=== PATIENT | female | born 1945 | race Caucasian/White ===

== ENCOUNTER 2016-05-22 13:58 | Outpatient (RCR) | payer MEDICARE, OTHER ==
[2016-04-06 13:24] LABS: BASOPHILS % (AUTO) 0 % (0-10); EOSINOPHILS # (AUTO) 0.1 10^3/uL (0.0-0.3); EOSINOPHILS % (AUTO) 1 % (0-10); LYMPHOCYTES % (AUTO) 12 % (12-44); MEAN CORPUSCULAR HEMOGLOBIN 32 PG (25-34); MEAN CORPUSCULAR HGB CONC 35 G/DL (32-36); MEAN CORPUSCULAR VOLUME 92 FL (80-99); MEAN PLATELET VOLUME 9.5 FL (7.4-10.4); MONOCYTES # (AUTO) 0.6 X 10^3 (0.0-1.0); MONOCYTES % (AUTO) 8 % (0-12); NEUTROPHILS # (AUTO) 6.2 X 10^3 (1.8-7.8); NEUTROPHILS % (AUTO) 79 % (42-75); PLATELET COUNT 230 10^3/uL (130-400); RED CELL DISTRIBUTION WIDTH 13.1 % (10.0-14.5); WHITE BLOOD COUNT 7.9 10^3/uL (4.3-11.0)
[2016-04-06 13:56] LABS: ALANINE AMINOTRANSFERASE 14 U/L (0-55); ALBUMIN 4.2 G/DL (3.2-4.5); ANION GAP 10 MMOL/L (5-14); ASPARTATE AMINO TRANSFERASE 13 U/L (5-34); BILIRUBIN,TOTAL 0.3 MG/DL (0.1-1.0); BLOOD UREA NITROGEN 11 MG/DL (7-18); BUN/CREATININE RATIO 14; CALCIUM 9.4 MG/DL (8.5-10.1); CARBON DIOXIDE 26 MMOL/L (21-32); CHLORIDE 105 MMOL/L (98-107); GFR ESTIMATED > 60; GLUCOSE 211 MG/DL (70-105); POTASSIUM 3.9 MMOL/L (3.6-5.0); SODIUM 141 MMOL/L (135-145); TOTAL PROTEIN 6.7 G/DL (6.4-8.2)
[~2016-05-22 13:58] MED LIST: ATRV10T PO; DOCU-238 PO; GBPN300C PO; GLIP5TAB13 PO; HYDR1TAB PO; MULT-35 PO; SERT50TA PO; TRM50T PO
== END 2016-07-05 | disposition home or self-care (01) ==
LOC: ONC 13:58
PROVIDERS: ATTEND Internal Medicine Hematology & Oncology
DX: C20 Malignant neoplasm of rectum (principal); C77.5 Secondary and unspecified malignant neoplasm of intrapelvic lymph nodes; Z93.3 Colostomy status; Z92.3 Personal history of irradiation; Z79.899 Other long term (current) drug therapy; Z45.2 Encounter for adjustment and management of vascular access device
CPT/HCPCS: 36591; 80053; 82378; 85025; 96523; 99213

== ENCOUNTER → 2016-08-21 | Outpatient (CLI) | payer MEDICARE, OTHER ==
--- NOTE | 2016-08-23 20:13 | Diagnostic Imaging Report ---
Bilateral screening mammogram. The current study was also evaluated with a Computer Aided Detection (CAD) system. INDICATION: Screening. No current complaints stated on the questionnaire. COMPARISON: 08/11/2015. FINDINGS: The breasts are composed of scattered fibroglandular densities. There are multiple scattered benign-appearing calcifications. No mass, architectural distortion, or new calcifications seen. Allowing for technique and positional differences, no suspicious change is seen. IMPRESSION: No significant change. ACR BI-RADS Category 2: Benign findings. Result letter will be mailed to the patient. Note: At least 10% of breast cancer is not imaged by mammography. Dictated by: Dictated on workstation # [id number]
== END ==
LOC: RAD 14:42
PROVIDERS: ATTEND Nurse Practitioner Adult Health
DX: Z12.31 Encounter for screening mammogram for malignant neoplasm of breast (principal)
CPT/HCPCS: 77067

== ENCOUNTER 2016-09-28 14:24 | Outpatient (RCR) | payer OTHER ==
[2016-07-06 15:04] LABS: BASOPHILS % (AUTO) 0 % (0-10); EOSINOPHILS # (AUTO) 0.1 10^3/uL (0.0-0.3); EOSINOPHILS % (AUTO) 1 % (0-10); LYMPHOCYTES # (AUTO) 1.4 X 10^3 (1.0-4.0); LYMPHOCYTES % (AUTO) 18 % (12-44); MEAN CORPUSCULAR HEMOGLOBIN 31 PG (25-34); MEAN CORPUSCULAR HGB CONC 34 G/DL (32-36); MEAN CORPUSCULAR VOLUME 91 FL (80-99); MEAN PLATELET VOLUME 9.5 FL (7.4-10.4); MONOCYTES # (AUTO) 0.8 X 10^3 (0.0-1.0); MONOCYTES % (AUTO) 10 % (0-12); NEUTROPHILS # (AUTO) 5.4 X 10^3 (1.8-7.8); NEUTROPHILS % (AUTO) 70 % (42-75); PLATELET COUNT 246 10^3/uL (130-400); RED BLOOD COUNT 4.81 10^6/uL (4.35-5.85); RED CELL DISTRIBUTION WIDTH 13.4 % (10.0-14.5); WHITE BLOOD COUNT 7.7 10^3/uL (4.3-11.0)
[2016-07-06 15:46] LABS: ALANINE AMINOTRANSFERASE 12 U/L (0-55); ALBUMIN 4.4 G/DL (3.2-4.5); ANION GAP 10 MMOL/L (5-14); ASPARTATE AMINO TRANSFERASE 16 U/L (5-34); BILIRUBIN,TOTAL 0.5 MG/DL (0.1-1.0); BLOOD UREA NITROGEN 8 MG/DL (7-18); BUN/CREATININE RATIO 10; CALCIUM 9.9 MG/DL (8.5-10.1); CARBON DIOXIDE 24 MMOL/L (21-32); CHLORIDE 105 MMOL/L (98-107); CREATININE SERUM 0.78 MG/DL (0.60-1.30); GFR ESTIMATED > 60; GLUCOSE 104 MG/DL (70-105); SODIUM 139 MMOL/L (135-145); TOTAL PROTEIN 7.1 G/DL (6.4-8.2)
== END 2016-10-04 | disposition home or self-care (01) ==
LOC: ONC 14:24
PROVIDERS: ATTEND Internal Medicine Hematology & Oncology
DX: C20 Malignant neoplasm of rectum (principal); C77.5 Secondary and unspecified malignant neoplasm of intrapelvic lymph nodes; Z93.3 Colostomy status; Z92.3 Personal history of irradiation; Z79.899 Other long term (current) drug therapy; Z45.2 Encounter for adjustment and management of vascular access device
CPT/HCPCS: 36591; 80053; 82378; 85025; 96523; 99213

== ENCOUNTER 2017-02-01 14:24 | Outpatient (RCR) | payer MEDICARE, OTHER ==
[2017-02-01 14:46] LABS: BASOPHILS % (AUTO) 1 % (0-10); EOSINOPHILS # (AUTO) 0.1 10^3/uL (0.0-0.3); EOSINOPHILS % (AUTO) 2 % (0-10); LYMPHOCYTES # (AUTO) 1.2 X 10^3 (1.0-4.0); LYMPHOCYTES % (AUTO) 17 % (12-44); MEAN CORPUSCULAR HEMOGLOBIN 31 PG (25-34); MEAN CORPUSCULAR HGB CONC 34 G/DL (32-36); MEAN CORPUSCULAR VOLUME 92 FL (80-99); MEAN PLATELET VOLUME 9.5 FL (7.4-10.4); MONOCYTES # (AUTO) 0.8 X 10^3 (0.0-1.0); MONOCYTES % (AUTO) 12 % (0-12); NEUTROPHILS # (AUTO) 4.5 X 10^3 (1.8-7.8); NEUTROPHILS % (AUTO) 68 % (42-75); PLATELET COUNT 246 10^3/uL (130-400); RED BLOOD COUNT 4.73 10^6/uL (4.35-5.85); RED CELL DISTRIBUTION WIDTH 13.5 % (10.0-14.5); WHITE BLOOD COUNT 6.7 10^3/uL (4.3-11.0)
[2017-02-01 15:11] LABS: ALANINE AMINOTRANSFERASE 13 U/L (0-55); ALBUMIN 4.3 GM/DL (3.2-4.5); ANION GAP 9 MMOL/L (5-14); ASPARTATE AMINO TRANSFERASE 16 U/L (5-34); BILIRUBIN,TOTAL 0.5 MG/DL (0.1-1.0); BLOOD UREA NITROGEN 10 MG/DL (7-18); BUN/CREATININE RATIO 14; CALCIUM 10.2 MG/DL (8.5-10.1); CARBON DIOXIDE 25 MMOL/L (21-32); CHLORIDE 107 MMOL/L (98-107); CREATININE SERUM 0.74 MG/DL (0.60-1.30); GFR ESTIMATED > 60; GLUCOSE 112 MG/DL (70-105); SODIUM 141 MMOL/L (135-145)
== END 2017-02-07 | disposition home or self-care (01) ==
LOC: ONC 14:24
PROVIDERS: ATTEND Internal Medicine Hematology & Oncology
DX: C20 Malignant neoplasm of rectum (principal); C77.5 Secondary and unspecified malignant neoplasm of intrapelvic lymph nodes; Z93.3 Colostomy status; Z92.3 Personal history of irradiation; Z79.899 Other long term (current) drug therapy; Z45.2 Encounter for adjustment and management of vascular access device
CPT/HCPCS: 36591; 80053; 82378; 85025; 96523

== ENCOUNTER 2017-02-28 05:33 | Outpatient (CLI) | payer MEDICARE, OTHER ==
[~2017-02-28] VITALS: Ht 167.6 cm; Wt 55.8 kg
[2017-03-02] MEDS ORDERED: HYDR-3820 PO (12:29)
== END 2017-02-28 10:45 ==
LOC: PREOP 05:33
PROVIDERS: ATTEND Surgery
DX: Z01.818 Encounter for other preprocedural examination (principal); C20 Malignant neoplasm of rectum

== ENCOUNTER 2017-03-02 09:56 | Day surgery (SDC) | payer MEDICARE, OTHER ==
[~2017-03-02] VITALS: Ht 167.6 cm; Wt 55.8 kg
[2017-03-02 10:51] VITALS: BP 147/61
[2017-03-02] MEDS ORDERED: LACTATED RINGERS 1,000 ML IV PRN ×2 (11:04→11:13)
[2017-03-02] MEDS ORDERED: ONDANSETRON 4 MG/2 ML (SDV) Z0FRAN ONE (11:37)
[2017-03-02] MEDS ORDERED: PROPOFOL INJECTION 50 ML IV ONE (11:37)
[2017-03-02] MEDS ORDERED: fentaNYL INJECTION 100 MCG/2 ML AMP ONE (11:38)
[2017-03-02] MEDS ORDERED: MIDAZOLAM 2 MG/2 ML (VERSED) VIAL ONE (11:38)
[2017-03-02] MEDS ORDERED: BUPIVACAINE 0.25% 30 ML (SENSORCAINE) VIAL ONE (11:44)
--- NOTE | 2017-03-02 11:54 | History & Physicial ---
History of Present Illness History of Present Illness Reason for visit/HPI to have the Yjwdcu-t-Fobn removed, having completed adjuvant chemotherapy for resected carcinoma of the rectum. Date of Admission Date Seen by Provider: Mar 02, 2017 Time Seen by Provider: 11:53 I consulted on this patient on 03/02/17 11:53 Attending Physician Courtney Mayer MD Admitting Physician Juan Mendez MD Consult Allergies and Home Medications Allergies Coded Allergies: Penicillins (Verified Allergy, Unknown, 01/27/16) aspirin (Verified Allergy, Unknown, 01/27/16) Home Medications No Active Prescriptions or Reported Meds Past Cvjxfhv-Ojxjno-Xxqrux Hx Patient Social History Marrital Status: single Employed/Student: retired Alcohol Use: Rarely Uses Recreational Drug Use: No Smoking Status: Current Everyday Smoker Former Smoker, Quit: Nov 23, 2014 Type Used: Cigarettes Recent Foreign Travel: No Contact w/other who traveled: No Recent Hopitalizations: No Recent Infectious Disease Expo: No Immunizations Up To Date Tetanus Booster (TDap): Unknown Pediatric: Yes Date of Influenza Vaccine: May 19, 2012 Seasonal Allergies Seasonal Allergies: No Surgeries Yes Bowel Surgery, Tubal Ligation Respiratory No Reproductive System Hx Reproductive Disorders: No Sexually Transmitted Disease: No HIV/AIDS: No Female Reproductive Disorders: Denies Musculoskeletal Arthritis Endocrine Endocrine Disorders: Diabetes, Non-Insulin dep HEENT Loss of Vision: Denies Hearing Impairment: Denies Cancer Rectal Type of Treatment: Chemotherapy, Radiation, Surgical Intervention Blood Transfusions Adverse Reaction to a Blood Tr: No Constitutional: no symptoms reported EENTM: no symptoms reported Respiratory: no symptoms reported Cardiovascular: no symptoms reported Genitourinary: no symptoms reported Musculoskeletal: no symptoms reported Skin: no symptoms reported Psychiatric/Neurological: No Symptoms Reported Physical Exam Vital Signs Vital Sign - Last 12Hours 03/02/17 10:51 Temp 98.2 Pulse 60 Resp 16 B/P (MAP) 147/61 Pulse Ox 98 O2 Delivery Room Air Capillary Refill : General Appearance: No Apparent Distress HEENT: Normal ENT Inspection Neck: Normal Inspection Respiratory: Lungs Clear Cardiovascular: Regular Rate, Rhythm Gastrointestinal: Other Back: Normal Inspection Neurologic/Psychiatric: Alert, Oriented x3 Skin: Warm/Dry Comments functioning colostomy over the left lower quadrant of the abdomen Assessment/Plan Assessment and Plan lady with resected carcinoma the rectum. Problems: Clinical Quality Measures DVT/VTE Risk/Contraindication: Risk Factor Score Per Nursin RFS Level Per Nursing on Admit: 4+=Very High COURTNEY MAYER MD Mar 02, 2017 11:54 am
--- NOTE | 2017-03-02 11:55 | Progress Note-Pre Operative ---
Pre-Operative Progress Note H&P Reviewed The H&P was reviewed, patient examined and no changes noted. Date Seen by Provider: Mar 02, 2017 Time Seen by Provider: 11:55 Date H&P Reviewed: Mar 02, 2017 Time H&P Reviewed: 11:55 Pre-Operative Diagnosis: Resected carcinoma of rectum COURTNEY MAYER MD Mar 02, 2017 11:55 am
[2017-03-02] MEDS ORDERED: ceFAZolin 1,000 MG (ANCEF) VIAL ONE (12:01)
--- NOTE | 2017-03-02 12:28 | Operative Report ---
Operative Report Date of Procedure/Surgery Mar 02, 2017 Surgeon (s) COURTNEY MAYER MD Medical Chemist (s): not applicable Post-Operative Diagnosis same Procedure Performed removal of Nfhivh-d-Ozsv Description of Procedure Anesthesia Type: MAC Estimated blood loss (mL): minimal Specimen(s) collected/removed Eorbzr-b-Cyas Description of the Procedure Indication for the procedure: This lady came in to have her Fnhrhr-k-Olar removed, having had an adequate discussion with her oncologist. She had undergone laparoscopic assisted abdominal-peritoneal resection of rectum with a permanent colostomy to address a distal rectal carcinoma and received neoadjuvant followed by adjuvant chemoradiation. Description of the procedure: She was placed supine on the operative table and our CONTACT MANAGER administered sedation, monitoring her vital signs. A gram of Ancef administered intravenously as prophylaxis against infection. Sequential compression devices were placed around her legs, to minimize the risk of venous thrombosis. Her right infraclavicular fossa was prepared and draped in the usual sterile manner. Local anesthesia was achieved using 0.25 percent Marcaine. A secondary incision was made along the previous scar and the Infuse- a-Port removed without risking air embolism. The incision was closed using 3-0 Vicryl for the subcutaneous tissue and a 4-0 Vicryl for skin, in a subcuticular fashion. She tolerated the procedure well and was taken back to the nursing area in a stable condition. Findings of the Procedure see operative report Allergies and Home Medications Allergies Coded Allergies: Penicillins (Verified Allergy, Unknown, 01/27/16) aspirin (Verified Allergy, Unknown, 01/27/16) Home Medications No Active Prescriptions or Reported Meds COURTNEY MAYER MD Mar 02, 2017 12:28 pm
[2017-03-02] MEDS ORDERED: HYDR-3820 PO (12:29)
--- NOTE | 2017-03-02 12:30 | Discharge Inst-Simple/Standard ---
Discharge Inst-Standard Discharge Medications New, Converted or Re-Newed RX: RX on Chart Patient Instructions/Follow Up Plan of Care/Instructions/FU: Band-Aid off in 48 hours. Activity as Tolerated: Yes Discharge Diet: No Restrictions COURTNEY MAYER MD Mar 02, 2017 12:30 pm
[2017-03-02 13:05] VITALS: BP 137/67
[2017-03-02 13:35] VITALS: BP 148/57
== END 2017-03-02 13:45 | disposition home or self-care (01) ==
LOC: SDC 09:56
PROVIDERS: ATTEND Surgery
DX: C20 Malignant neoplasm of rectum (principal); Z93.3 Colostomy status; Z92.3 Personal history of irradiation; Z92.21 Personal history of antineoplastic chemotherapy; F17.210 Nicotine dependence, cigarettes, uncomplicated; E11.9 Type 2 diabetes mellitus without complications
CPT/HCPCS: 87081

== ENCOUNTER 2017-08-02 12:58 | Outpatient (RCR) | payer MEDICARE, OTHER ==
[2017-08-02 13:19] LABS: BASOPHILS % (AUTO) 0 % (0-10); EOSINOPHILS % (AUTO) 1 % (0-10); HEMATOCRIT 45 % (35-52); HEMOGLOBIN 15.4 G/DL (11.5-16.0); LYMPHOCYTES # (AUTO) 1.1 X 10^3 (1.0-4.0); LYMPHOCYTES % (AUTO) 16 % (12-44); MEAN CORPUSCULAR HEMOGLOBIN 32 PG (25-34); MEAN CORPUSCULAR HGB CONC 35 G/DL (32-36); MEAN CORPUSCULAR VOLUME 92 FL (80-99); MEAN PLATELET VOLUME 9.8 FL (7.4-10.4); MONOCYTES # (AUTO) 0.5 X 10^3 (0.0-1.0); MONOCYTES % (AUTO) 8 % (0-12); NEUTROPHILS # (AUTO) 5.3 X 10^3 (1.8-7.8); NEUTROPHILS % (AUTO) 76 % (42-75); PLATELET COUNT 227 10^3/uL (130-400); RED BLOOD COUNT 4.85 10^6/uL (4.35-5.85)
[2017-08-02 13:37] LABS: ALANINE AMINOTRANSFERASE 15 U/L (0-55); ALBUMIN 4.1 GM/DL (3.2-4.5); ALKALINE PHOSPHATASE 63 U/L (40-136); BILIRUBIN,TOTAL 0.4 MG/DL (0.1-1.0); BUN/CREATININE RATIO 11; CARBON DIOXIDE 28 MMOL/L (21-32); CHLORIDE 102 MMOL/L (98-107); CREATININE SERUM 0.88 MG/DL (0.60-1.30); GFR ESTIMATED > 60; GLUCOSE 213 MG/DL (70-105); POTASSIUM 4.3 MMOL/L (3.6-5.0); SODIUM 138 MMOL/L (135-145); TOTAL PROTEIN 7.1 GM/DL (6.4-8.2)
== END 2017-10-31 | disposition home or self-care (01) ==
LOC: ONC 12:58
PROVIDERS: ATTEND Internal Medicine Hematology & Oncology
DX: C20 Malignant neoplasm of rectum (principal); C77.5 Secondary and unspecified malignant neoplasm of intrapelvic lymph nodes; R05 Cough; M53.3 Sacrococcygeal disorders, not elsewhere classified; Z93.3 Colostomy status; Z79.899 Other long term (current) drug therapy; Z92.3 Personal history of irradiation; Z92.21 Personal history of antineoplastic chemotherapy
CPT/HCPCS: 80053; 82378; 85025

== ENCOUNTER → 2017-08-02 | Outpatient (CLI) | payer MEDICARE, OTHER ==
[~2017-08-02] MED LIST changes: +HYDR-3820 PO
--- NOTE | 2017-08-02 15:21 | Diagnostic Imaging Report ---
INDICATION: Cough. COMPARISON: 02/05/2013. EXAMINATION: Frontal and lateral views of the chest were obtained. FINDINGS: Clear lungs, bilaterally. The heart is normal. There is no pneumothorax. Osseous structures are normal. IMPRESSION: Negative chest. Dictated by: Dictated on workstation # [id number]
== END ==
LOC: RAD 13:56
PROVIDERS: ATTEND Nurse Practitioner Adult Health
DX: R05 Cough (principal)
CPT/HCPCS: 71046

== ENCOUNTER → 2017-08-20 | Outpatient (CLI) | payer MEDICARE, OTHER ==
[~2017-08-20] MED LIST changes: +CATHETER FLUSH 10 ML SYR IV PRN; +IOHEXOL 350 MG/ML 100 ML (OMNIPAQUE 350) VIAL IV ONE; +NS 100 ML (IVPB) BAG IV ONE
--- NOTE | 2017-08-20 15:39 | Diagnostic Imaging Report ---
PROCEDURE: CT chest with contrast, CT abdomen and pelvis with and without contrast. TECHNIQUE: Pre and post intravenous contrast axial imaging of the abdomen and pelvis and post contrast axial imaging of the chest were performed. INDICATION: Colon carcinoma, rectal lump. FINDINGS: The previous CT chest, abdomen, and pelvis exam performed on 08/07/2013 failed to show any sign of metastatic disease related to the patient's diagnosis of colon carcinoma. There was some soft tissue thickening of the presacral space. On this exam, there is a suggestion of a 2.3 x 3.3 cm soft tissue density interposed between the posterior aspect of the bladder and the tip of the coccyx. This finding was not clearly evident on the prior exam. It is possible that this could be secondary to volume averaging with the adjacent bowel. The possibility that there is a mass in this area should still be considered. I would recommend that PET/CT be performed for further study. There is no other pelvic mass or free fluid collection noted. The bladder itself is decompressed and difficult to assess. The ostomy site overlying the left lower quadrant seen on the prior study is again evident. The images through the abdomen show that the liver is homogeneous and of lower density than usually seen. This does suggest fatty metamorphosis. There is no focal mass involving the liver to indicate metastatic disease. No clear evidence for cholelithiasis or acute cholecystitis. The spleen, pancreas, adrenals, kidneys, aorta, and inferior vena cava show no sign of an acute abnormality. The stomach is filled with oral contrast and fluid and difficult to assess. The images through the thorax show that the heart size is within normal limits and stable when compared to the prior exam. The aorta is not abnormally dilated and there is no sign of dissection. There is no defect within the pulmonary arteries to indicate a pulmonary embolus. There is mild dependent atelectasis in both lung bases. The lungs are otherwise clear. There is no evidence for failure, pneumonia, or for a pleural effusion. There are mild emphysematous changes involving the lung apices. There is no parenchymal lung mass to indicate neoplastic disease. There is no mediastinal or hilar adenopathy. The thyroid gland is generally unremarkable. There is no obvious breast mass. The bone windows show no evidence for a fracture or for a destructive lesion. IMPRESSION: 1. There is a 2.2 x 3.3 cm soft tissue density interposed between the posterior margin of the bladder and the coccyx. While this finding may be secondary to volume averaging with the bowel alone, the possibility that there is a neoplastic mass in this area cannot be entirely excluded. PET/CT will be recommended for further study. 2. The overall appearance of the chest, abdomen, and pelvis is otherwise no different than on the prior exam. There is no sign of metastatic disease or of an acute abnormality. Dictated on workstation # [id number]
== END ==
LOC: RAD 13:31
PROVIDERS: ATTEND Nurse Practitioner Adult Health
DX: C18.9 Malignant neoplasm of colon, unspecified (principal); C20 Malignant neoplasm of rectum; K62.89 Other specified diseases of anus and rectum; M79.89 Other specified soft tissue disorders
CPT/HCPCS: 71260; 74178

== ENCOUNTER → 2017-08-28 | Outpatient (CLI) | payer MEDICARE, OTHER ==
[~2017-08-28] MED LIST changes: -CATHETER FLUSH 10 ML SYR IV PRN; -IOHEXOL 350 MG/ML 100 ML (OMNIPAQUE 350) VIAL IV ONE; -NS 100 ML (IVPB) BAG IV ONE
--- NOTE | 2017-08-28 16:46 | Diagnostic Imaging Report ---
INDICATION: Rectal carcinoma. COMPARISON: Comparison is made with prior PET/CT from 08/27/2012. TECHNIQUE: The patient was administered 12.2 mCi of F-18 FDG intravenously in the left antecubital location. PET imaging was performed from the top of the head through the mid thighs. Noncontrast CT imaging was also performed for anatomic correlation and attenuation correction. FINDINGS: There is symmetric activity throughout the brain. The neck soft tissues are unremarkable. No abnormal hypermetabolism in the chest is identified. There is physiologic activity within the left ventricular myocardium. Imaging through the abdomen demonstrates physiologic activity within the liver and spleen as well as within the tract. The previously noted intense region of hypermetabolism involving the rectum is no longer appreciated. Patient has had prior surgery and now has left lower quadrant ostomy. In addition, the hypermetabolic lymph node in the pelvis is no longer appreciated. No pelvic hypermetabolism is identified to suggest residual or recurrent disease. Physiologic activity within the GI tract and bladder is seen. Portion of the study does show a left lower quadrant ostomy. There is presacral soft tissue thickening present, perhaps on post-therapeutic basis. This region does not appear to be hypermetabolic. IMPRESSION: Post-therapeutic changes to the abdomen and pelvis. The previously noted hypermetabolic rectal mass and adjacent lymph node are no longer appreciated. No new regions of hypermetabolism are identified to suggest residual or recurrent disease. Dictated by: Dictated on workstation # [id number]
== END ==
LOC: RAD 09:03
PROVIDERS: ATTEND Nurse Practitioner Adult Health
DX: C20 Malignant neoplasm of rectum (principal)

== ENCOUNTER 2018-02-07 12:50 | Outpatient (RCR) | payer MEDICARE, OTHER ==
[2018-02-07 13:00] LABS: BASOPHILS % (AUTO) 1 % (0-10); EOSINOPHILS # (AUTO) 0.1 10^3/uL (0.0-0.3); EOSINOPHILS % (AUTO) 1 % (0-10); HEMATOCRIT 46 % (35-52); HEMOGLOBIN 16.2 G/DL (11.5-16.0); LYMPHOCYTES # (AUTO) 1.3 X 10^3 (1.0-4.0); LYMPHOCYTES % (AUTO) 17 % (12-44); MEAN CORPUSCULAR HEMOGLOBIN 32 PG (25-34); MEAN CORPUSCULAR HGB CONC 35 G/DL (32-36); MEAN CORPUSCULAR VOLUME 92 FL (80-99); MEAN PLATELET VOLUME 9.4 FL (7.4-10.4); MONOCYTES # (AUTO) 0.7 X 10^3 (0.0-1.0); MONOCYTES % (AUTO) 9 % (0-12); NEUTROPHILS # (AUTO) 5.4 X 10^3 (1.8-7.8); NEUTROPHILS % (AUTO) 72 % (42-75); PLATELET COUNT 247 10^3/uL (130-400); RED CELL DISTRIBUTION WIDTH 13.1 % (10.0-14.5); WHITE BLOOD COUNT 7.6 10^3/uL (4.3-11.0)
[2018-02-07 13:26] LABS: ALANINE AMINOTRANSFERASE 21 U/L (0-55); ALBUMIN 4.6 GM/DL (3.2-4.5); ALKALINE PHOSPHATASE 80 U/L (40-136); BILIRUBIN,TOTAL 0.6 MG/DL (0.1-1.0); BUN/CREATININE RATIO 11; CALCIUM 10.7 MG/DL (8.5-10.1); CARBON DIOXIDE 25 MMOL/L (21-32); CHLORIDE 104 MMOL/L (98-107); CREATININE SERUM 0.79 MG/DL (0.60-1.30); GFR ESTIMATED > 60; GLUCOSE 139 MG/DL (70-105); POTASSIUM 4.2 MMOL/L (3.6-5.0); SODIUM 140 MMOL/L (135-145); TOTAL PROTEIN 7.7 GM/DL (6.4-8.2)
== END 2018-02-22 | disposition home or self-care (01) ==
LOC: ONC 12:50
PROVIDERS: ATTEND Internal Medicine Hematology & Oncology
DX: C20 Malignant neoplasm of rectum (principal); C77.5 Secondary and unspecified malignant neoplasm of intrapelvic lymph nodes; M53.3 Sacrococcygeal disorders, not elsewhere classified; Z93.3 Colostomy status; Z79.899 Other long term (current) drug therapy; Z92.3 Personal history of irradiation; Z92.21 Personal history of antineoplastic chemotherapy
CPT/HCPCS: 36415; 80053; 82378; 85025; 99213

== ENCOUNTER 2018-09-12 12:40 | Outpatient (RCR) | payer MEDICARE, OTHER ==
[2018-09-12 12:57] LABS: BASOPHILS % (AUTO) 1 % (0-10); EOSINOPHILS # (AUTO) 0.1 10^3/uL (0.0-0.3); EOSINOPHILS % (AUTO) 1 % (0-10); HEMATOCRIT 47 % (35-52); LYMPHOCYTES # (AUTO) 1.3 X 10^3 (1.0-4.0); LYMPHOCYTES % (AUTO) 17 % (12-44); MEAN CORPUSCULAR HEMOGLOBIN 32 PG (25-34); MEAN CORPUSCULAR HGB CONC 34 G/DL (32-36); MEAN CORPUSCULAR VOLUME 94 FL (80-99); MEAN PLATELET VOLUME 9.6 FL (7.4-10.4); MONOCYTES # (AUTO) 0.7 X 10^3 (0.0-1.0); MONOCYTES % (AUTO) 9 % (0-12); NEUTROPHILS # (AUTO) 5.9 X 10^3 (1.8-7.8); NEUTROPHILS % (AUTO) 73 % (42-75); PLATELET COUNT 225 10^3/uL (130-400); RED CELL DISTRIBUTION WIDTH 13.3 % (10.0-14.5)
[2018-09-12 13:14] LABS: ALANINE AMINOTRANSFERASE 29 U/L (0-55); ALBUMIN 4.6 GM/DL (3.2-4.5); ALKALINE PHOSPHATASE 82 U/L (40-136); BILIRUBIN,TOTAL 0.6 MG/DL (0.1-1.0); BUN/CREATININE RATIO 10; CALCIUM 10.3 MG/DL (8.5-10.1); CARBON DIOXIDE 26 MMOL/L (21-32); CHLORIDE 105 MMOL/L (98-107); CREATININE SERUM 0.84 MG/DL (0.60-1.30); GFR ESTIMATED > 60; GLUCOSE 144 MG/DL (70-105); POTASSIUM 4.2 MMOL/L (3.6-5.0); SODIUM 140 MMOL/L (135-145); TOTAL PROTEIN 7.6 GM/DL (6.4-8.2)
== END 2018-12-11 | disposition home or self-care (01) ==
LOC: ONC 12:40
PROVIDERS: ATTEND Internal Medicine Hematology & Oncology
DX: C20 Malignant neoplasm of rectum (principal); C77.5 Secondary and unspecified malignant neoplasm of intrapelvic lymph nodes; E11.9 Type 2 diabetes mellitus without complications; F17.210 Nicotine dependence, cigarettes, uncomplicated; M53.3 Sacrococcygeal disorders, not elsewhere classified; Z93.3 Colostomy status; Z79.899 Other long term (current) drug therapy; Z92.3 Personal history of irradiation; Z92.21 Personal history of antineoplastic chemotherapy
CPT/HCPCS: 36415; 80053; 82378; 85025; 99213

== ENCOUNTER 2019-01-15 10:40 | Outpatient (CLI) | payer MEDICARE, OTHER ==
[~2019-01-15] VITALS: Ht 167.6 cm; Wt 65.3 kg
[~2019-01-15 10:40] MED LIST changes: +MULT-974 PO
== END 2019-01-15 11:21 | disposition home or self-care (01) ==
LOC: PREOP 10:40
PROVIDERS: ATTEND Surgery
DX: Z01.818 Encounter for other preprocedural examination (principal)

== ENCOUNTER 2019-01-21 09:43 | Day surgery (SDC) | payer MEDICARE, OTHER ==
[~2019-01-21] VITALS: Ht 167.6 cm; Wt 65.3 kg
[2019-01-21] VITALS (7 sets, daily range): BP systolic 149–178; BP diastolic 67–80
--- OUTSIDE RECORDS SUMMARY | 2019-01-21 09:51 | XMS REPORT ---
Author Author Migration, Doctor Organization [facility] Address Unknown Phone Unavailable Care Team Providers Care Medical Reception Name Role Phone Migration, Doctor Unavailable Unavailable PROBLEMS Type Condition ICD9-CM Code [id number] Code Onset Dates Condition Status SNOMED Code Problem History of colon cancer Z85.038 Active 375216811 Problem Major depressive disorder, single episode, mild F32.0 Active 09022952 Problem Mixed hyperlipidemia E78.2 Active 154477369 Problem Cigarette nicotine dependence without complication F17.210 Active 25057368 ALLERGIES No Information ENCOUNTERS Encounter Location Date Diagnosis [facility] [id number] [place] [address] Aug, Encounter for Medicare annual wellness exam Z00.00 ; Major depressive disorder, single episode, mild F32.0 ; Encounter for immunization Z23 and Mixed hyperlipidemia E78.2 [facility] [id number] [place] [address] Jul, [facility] [id number] [place] [address] Jun, [facility] [id number] [place] [address] 15 Mar, 2018 Major depressive disorder, single episode, mild F32.0 [facility] [id number] [place] [address] Feb, Reactive depression F32.9 and Mixed hyperlipidemia E78.2 [facility] [id number] [place] [address] Apr, [facility] [id number] [place] [address] 14 Sep, 2014 [facility] [id number] [place] [address] 13 Sep, 2014 [facility] [place] [facility] [address] [id number] [place] [address] Mar, [facility] [place] [facility] [address] [id number] [place] [address] Mar, [facility] [place] [facility] [address] [id number] [place] [address] Dec, [facility] [place] [facility] [address] [id number] [place] [address] Dec, [facility] [place] [facility] [address] [id number] [place] [address] Dec, [facility] [place] [facility] [address] [id number] [place] [address] Dec, [facility] [place] [facility] [address] [id number] [place] [address] Dec, [facility] [place] [facility] [address] [id number] [place] [address] Dec, [facility] [place] [facility] [address] [id number] [place] [address] Nov, [facility] [place] [facility] [address] [id number] [place] [address] Nov, [facility] [place] [facility] [address] [id number] [place] [address] Aug, [facility] [place] [facility] [address] [id number] [place] [address] Aug, [facility] [place] [facility] [address] [id number] [place] [address] Apr, [facility] [place] [facility] [address] [id number] [place] [address] Apr, [facility] [place] [facility] [address] [id number] [place] [address] Mar, [facility] [place] [facility] [address] [id number] [address] 16 Feb, 2013 [facility] [address] [id number] [place] [address] Feb, [facility] [address] [id number] [place] [address] Jan, [facility] [address] [facility] [id number] [place] [address] Dec, [facility] [address] [id number] [place] [address] Dec, [facility] [address] [id number] [place] [address] Aug, [facility] [address] [id number] [place] [address] Jul, [facility] [address] [id number] [place] [address] Jul, [facility] [address] [id number] [place] [address] 14 Jul, 2012 [facility] [address] [id number] [place] [address] Jul, [facility] [address] [facility] [id number] [place] [address] Jul, [facility] [address] [id number] [place] [address] 06 Jul, 2012 [facility] [place] [facility] [address] [id number], [place] [address] Jul, [facility] [place] [facility] [address] [id number], [place] [address] Jul, [facility] [place] [facility] [address] [id number], [place] [address] Jun, [facility] [place] [facility] [address] [id number], [place] [address] Jun, [facility] [address] [facility] [id number], [place] [address] Jun, [facility] [address], [place] [address] Jun, [facility] [address] [facility] [id number], [place] [address] Jun, [facility] [address], [place] [address] Jun, [facility] [address] [facility] [id number], [place] [address] Mar, [facility] [address], [place] [address] Mar, [facility] [address], [place] [address] Mar, [facility] [address], [place] [address] Mar, [facility] [id number], [place] [address] Dec, [facility] [address], [place] [address] Aug, IMMUNIZATIONS No Known Immunizations SOCIAL HISTORY Never Assessed REASON FOR VISIT [place]MR[place] PLAN OF CARE VITAL SIGNS MEDICATIONS No Known Medications RESULTS No Results PROCEDURES No Known procedures INSTRUCTIONS MEDICATIONS ADMINISTERED No Known Medications MEDICAL (GENERAL) HISTORY Type Description Date Surgical History No Surgical history information
--- OUTSIDE RECORDS SUMMARY | 2019-01-21 09:51 | XMS REPORT ---
Author Author Migration, Doctor Organization [facility] Address Unknown Phone Unavailable Care Team Providers Care Inspector Wire Products Name Role Phone Migration, Doctor Unavailable Unavailable PROBLEMS Type Condition ICD9-CM Code NJP98-MB Code Onset Dates Condition Status SNOMED Code Problem History of colon cancer Z85.038 Active 516756225 Problem Major depressive disorder, single episode, mild F32.0 Active 90969030 Problem Mixed hyperlipidemia E78.2 Active 092470580 Problem Cigarette nicotine dependence without complication F17.210 Active 92028603 ALLERGIES No Information ENCOUNTERS Encounter Location Date Diagnosis [facility] [id number] [place] [address] Aug, Encounter for Medicare annual wellness exam Z00.00 ; Major depressive disorder, single episode, mild F32.0 ; Encounter for immunization Z23 and Mixed hyperlipidemia E78.2 [facility] [id number] [place] [address] Jul, [facility] [id number] [place] [address] Jun, [facility] [id number] [place] [address] 15 Mar, 2018 Major depressive disorder, single episode, mild F32.0 [facility] [id number] [place] [address] Feb, Reactive depression F32.9 and Mixed hyperlipidemia E78.2 [facility] [id number] [place] [address] Apr, [facility] [id number] [place] [address] 14 Sep, 2014 [facility] [id number] [place] [address] 13 Sep, 2014 [facility] [place] [facility] [address] [id number] [place] [address] Mar, [facility] [place] [facility] [address] [id number] [place] [address] Mar, [facility] [place] [facility] [address] [id number] [place] [address] Dec, [facility] [place] [facility] [address] [id number] [place] [address] Dec, [facility] [place] [facility] [address] [id number] [place] [address] Dec, [facility] [place] [facility] [address] [id number] [place] [address] Dec, [facility] [place] [facility] [address] [id number] [place] [address] Dec, [facility] [place] [facility] [address] [id number] [place] [address] Dec, [facility] [place] [facility] [address] [id number] [place] [address] Nov, [facility] [place] [facility] [address] [id number] [place] [address] Nov, [facility] [place] [facility] [address] [id number] [place] [address] Aug, [facility] [place] [facility] [address] [id number] [place] [address] Aug, [facility] [place] [facility] [address] [id number] [place] [address] Apr, [facility] [place] [facility] [address] [id number] [place] [address] Apr, [facility] [place] [facility] [address] [id number] [place] [address] Mar, [facility] [place] [facility] [address] [id number], [place] [address] 16 Feb, 2013 [facility] [address] [id number] [place] [address] Feb, [facility] [address] [id number] [place] [address] Jan, [facility] [address] [facility] [id number] [place] [address] Dec, [facility] [address] [id number] [place] [address] Dec, [facility] [address] [id number] [place] [address] Aug, [facility] [address] [id number] [place] [address] Jul, [facility] [address] [id number] [place] [address] Jul, [facility] [address] [id number] [place] [address] 14 Jul, 2012 [facility] [address] [id number] [place] [address] Jul, [facility] [address] [facility] [id number] [place] [address] Jul, [facility] [address] [id number] [place] [address] 06 Jul, 2012 [facility] [place] [facility] [address] [id number], [place] [address] Jul, [facility] [place] [facility] [address] [id number], [place] [address] Jul, [facility] [place] [facility] [address] [id number], [place] [address] Jun, [facility] [place] [facility] [address] [id number], [place] [address] Jun, [facility] [address] [facility] [id number], [place] [address] Jun, [facility] [address], [place] [address] Jun, [facility] [address] [facility] [id number], [place] [address] Jun, [facility] [address], [place] [address] Jun, [facility] [address] [facility] [id number], [place] [address] Mar, [facility] [address], [place] [address] Mar, [facility] [address], [place] [address] Mar, [facility] [address], [place] [address] Mar, [facility] [id number] [address] Dec, [facility] [address], [place] [address] Aug, IMMUNIZATIONS No Known Immunizations SOCIAL HISTORY Never Assessed REASON FOR VISIT EMR-[facility] PLAN OF CARE VITAL SIGNS MEDICATIONS No Known Medications RESULTS No Results PROCEDURES No Known procedures INSTRUCTIONS MEDICATIONS ADMINISTERED No Known Medications MEDICAL (GENERAL) HISTORY Type Description Date Surgical History No Surgical history information
--- OUTSIDE RECORDS SUMMARY | 2019-01-21 09:51 | XMS REPORT ---
Author Author GABRIELA SCOTT [facility] Address [address] [place] [address] Care Team Providers Care Musical Instrument Maker Name Role Phone GABRIELA SCOTT Unavailable PROBLEMS Type Condition ICD9-CM Code [id number] Code Onset Dates Condition Status SNOMED Code Problem Major depressive disorder, single episode, mild F32.0 Active 60033130 Problem History of colon cancer Z85.038 Active 991885555 Problem Cigarette nicotine dependence without complication F17.210 Active 13474266 Problem Mixed hyperlipidemia E78.2 Active 231210537 ALLERGIES No Known Allergies ENCOUNTERS Encounter Location Date Diagnosis [facility] [id number] [place] [address] Mar, Major depressive disorder, single episode, mild F32.0 [facility] [id number] [place] [address] 14 Feb, 2018 Reactive depression F32.9 and Mixed hyperlipidemia E78.2 [facility] [id number] [place] [address] 07 Apr, 2016 [facility] [address] [address] 14 Sep, 2014 [facility] [id number] [place] [address] Sep, [facility] [id number] [place] [address] Mar, [facility] [id number] [place] [address] Mar, [facility] [id number] [place] [address] Dec, [facility] [address] [address] [place] [address] Dec, [facility] [place] [facility] [address] [id number] [place] [address] Dec, [facility] [place] [facility] [address] [id number] [place] [address] Dec, [facility] [place] [facility] [address] [id number] [place] [address] Dec, [facility] [place] [facility] [address] [id number] [place] [address] Dec, [facility] [place] [facility] [address] [id number] [place] [address] Nov, [facility] [place] [facility] [address] [id number] [place] [address] Nov, [facility] [place] [facility] [address] [id number] [place] [address] Aug, [facility] [place] [facility] [address] [id number] [place] [address] Aug, [facility] [place] [facility] [address] [id number] [place] [address] Apr, [facility] [place] [facility] [address] [id number] [place] [address] Apr, [facility] [place] [facility] [address] [id number] [place] [address] Mar, [facility] [place] [facility] [address] [id number] [place] [address] Feb, [facility] [place] [facility] [address] [id number] [place] [address] Feb, [facility] [place] [facility] [address] [id number] [place] [address] Jan, [facility] [place] [facility] [address] [id number] [place] [address] Dec, [facility] [place] [facility] [address] [id number] [place] [address] Dec, [facility] [address] [id number] [place] [address] Aug, [facility] [address] [id number] [place] [address] Jul, [facility] [place] [facility] [address] [id number] [place] [address] Jul, [facility] [address] [id number] [place] [address] Jul, [facility] [address] [id number] [place] [address] Jul, [facility] [address] [id number] [place] [address] Jul, [facility] [address] [id number] [place] [address] Jul, [facility] [address] [id number] [place] [address] Jul, [facility] [address] [id number] [place] [address] Jul, [facility] [address] [id number] [place] [address] Jun, [facility] [place] [facility] [address] [id number] [place] [address] Jun, [facility] [place] [facility] [address] [id number] [place] [address] Jun, [facility] [place] [facility] [address] [id number] [place] [address] Jun, [facility] [place] [facility] [address] [id number] [place] [address] Jun, [facility] [place] [facility] [address] [facility] [id number] [place] [address] Jun, [facility] [address] [facility] [id number] [address] Mar, [facility] [id number] [address] Mar, [facility] [address] [facility] [id number], [place] [address] Mar, [facility] [id number] [address] Mar, [facility] [address] [facility] [id number], [place] [address] Dec, [facility] [address] [id number] [address] Aug, IMMUNIZATIONS No Known Immunizations SOCIAL HISTORY Never Assessed REASON FOR VISIT Depression f/u Elzbieta VALDEZ PLAN OF CARE Activity Details Follow Up prn Reason: VITAL SIGNS Height 66 in 2018-04-08 Weight 138.9 lbs 2018-04-08 Temperature 98.1 degrees Fahrenheit 2018-04-08 Heart Rate 78 bpm 2018-04-08 Respiratory Rate 18 2018-04-08 BMI 22.42 kg/m2 2018-04-08 Blood pressure systolic 132 mmHg 2018-04-08 Blood pressure diastolic 82 mmHg 2018-04-08 MEDICATIONS Medication Instructions Dosage Frequency Start Date End Date Duration Status Hydrocodone-Acetaminophen 5-325 MG Orally every 6 hrs 1 tablet as needed 6h Active RESULTS No Results PROCEDURES Procedure Date Ordered Result Body Site [facility] VISIT ESTABLISHED PATIENT Apr 08, 2018 INSTRUCTIONS MEDICATIONS ADMINISTERED No Known Medications MEDICAL (GENERAL) HISTORY Type Description Date Surgical History No Surgical history information
--- OUTSIDE RECORDS SUMMARY | 2019-01-21 09:51 | XMS REPORT ---
Author Author Migration, Doctor Organization [facility] Address Unknown Phone Unavailable Care Team Providers Care Case Preparer And Liner Name Role Phone Migration, Doctor Unavailable Unavailable PROBLEMS Type Condition ICD9-CM Code [id number] Code Onset Dates Condition Status SNOMED Code Problem History of colon cancer Z85.038 Active 901646910 Problem Major depressive disorder, single episode, mild F32.0 Active 38075281 Problem Mixed hyperlipidemia E78.2 Active 953270096 Problem Cigarette nicotine dependence without complication F17.210 Active 25274818 ALLERGIES No Information ENCOUNTERS Encounter Location Date Diagnosis [facility] [id number] [place] [address] Aug, Encounter for Medicare annual wellness exam Z00.00 ; Major depressive disorder, single episode, mild F32.0 ; Encounter for immunization Z23 and Mixed hyperlipidemia E78.2 [facility] [id number] [place] [address] Jul, [facility] [id number] [place] [address] Jun, [facility] [id number] [place] [address] Mar, Major depressive disorder, single episode, mild F32.0 [facility] [id number] [place] [address] Feb, Reactive depression F32.9 and Mixed hyperlipidemia E78.2 [facility] [id number] [place] [address] Apr, [facility] [id number] [place] [address] Sep, [facility] [id number] [place] [address] 13 Sep, 2014 [facility] [place] [facility] [address] [id number] [place] [address] Mar, [facility] [place] [facility] [address] [id number] [place] [address] Mar, [facility] [place] [facility] [address] [id number] [place] [address] Dec, [facility] [place] [facility] [address] [id number] [place] [address] Dec, [facility] [place] [facility] [address] [id number] [place] [address] Dec, [facility] [place] [facility] [address] [id number] [place] [address] Dec, [facility] [place] [facility] [address] [id number] [place] [address] Dec, [facility] [place] [facility] [address] [id number] [place] [address] Dec, [facility] [place] [facility] [address] [id number] [place] [address] Nov, [facility] [place] [facility] [address] [id number] [place] [address] Nov, [facility] [place] [facility] [address] [id number] [place] [address] Aug, [facility] [place] [facility] [address] [id number] [place] [address] Aug, [facility] [place] [facility] [address] [id number] [place] [address] Apr, [facility] [place] [facility] [address] [id number] [place] [address] Apr, [facility] [place] [facility] [address] [id number] [place] [address] Mar, [facility] [place] [facility] [address] [id number], [place] [address] 16 Feb, 2013 [facility] [address] [id number] [place] [address] Feb, [facility] [address] [id number] [place] [address] Jan, [facility] [address] [facility] [id number] [place] [address] Dec, [facility] [address] [id number] [place] [address] Dec, [facility] [address] [id number] [place] [address] Aug, [facility] [address] [id number] [place] [address] Jul, [facility] [address] [id number] [place] [address] Jul, [facility] [address] [id number] [place] [address] 14 Jul, 2012 [facility] [address] [id number] [place] [address] Jul, [facility] [address] [facility] [id number] [place] [address] Jul, [facility] [address] [id number] [place] [address] 06 Jul, 2012 [facility] [place] [facility] [address] [id number], [place] [address] Jul, [facility] [place] [facility] [address] [id number], [place] [address] Jul, [facility] [place] [facility] [address] [id number], [place] [address] Jun, [facility] [place] [facility] [address] [id number], [place] [address] Jun, [facility] [address] [facility] [id number], [place] [address] Jun, [facility] [address] [facility] [id number], [place] [address] Jun, [facility] [address] [facility] [id number], [place] [address] Jun, [facility] [address] [facility] [id number], [place] [address] Jun, [facility] [address] [id number], [place] [address] Mar, [facility] [address] [facility] [id number], [place] [address] Mar, [facility] [address] [facility] [id number], [place] [address] Mar, [facility] [address] [facility] [id number], [place] [address] Mar, [facility] [address] [facility] [id number], [place] [address] Dec, [facility] [address] [facility] [id number], [place] [address] Aug, IMMUNIZATIONS No Known Immunizations SOCIAL HISTORY Never Assessed REASON FOR VISIT EMR-[facility] PLAN OF CARE VITAL SIGNS MEDICATIONS Medication Instructions Dosage Frequency Start Date End Date Duration Status GlipiZIDE 5 mg 1 tablet by Oral route 1 time per day Dec, Active trazodone 100 mg 1 Daily by Oral route 1 time per day hs Mar, Active Naprosyn 500 mg 1 tablet by Oral route 2 times per day pc Dec, Active RESULTS No Results PROCEDURES No Known procedures INSTRUCTIONS MEDICATIONS ADMINISTERED No Known Medications MEDICAL (GENERAL) HISTORY Type Description Date Surgical History No Surgical history information
--- OUTSIDE RECORDS SUMMARY | 2019-01-21 09:51 | XMS REPORT ---
Author Author GABRIELA SCOTT [facility] Address [address] [place] [address] Care Team Providers Care Tube Wrapper Name Role Phone GABRIELA SCOTT Unavailable PROBLEMS Type Condition ICD9-CM Code LHZ35-LG Code Onset Dates Condition Status SNOMED Code Problem History of colon cancer Z85.038 Active 532443267 Problem Major depressive disorder, single episode, mild F32.0 Active 96738880 Problem Mixed hyperlipidemia E78.2 Active 947019351 Problem Cigarette nicotine dependence without complication F17.210 Active 89963969 ALLERGIES No Information ENCOUNTERS Encounter Location Date Diagnosis [id number] [place] [address] Aug, Encounter for Medicare annual wellness exam Z00.00 ; Major depressive disorder, single episode, mild F32.0 ; Encounter for immunization Z23 and Mixed hyperlipidemia E78.2 [facility] [id number] [place] [address] Jul, [facility] [address] [place] [address] Jun, [facility] [id number] [place] [address] 15 Mar, 2018 Major depressive disorder, single episode, mild F32.0 [facility] [address] [address] 14 Feb, 2018 Reactive depression F32.9 and Mixed hyperlipidemia E78.2 [facility] [address] [place] [address] 07 Apr, 2016 [facility] [id number] [place] [address] 14 Sep, 2014 [facility] [id number] [place] [address] Sep, [facility] [place] [facility] [address] [id number] [place] [address] Mar, [facility] [place] [facility] [address] [id number] [place] [address] Mar, [facility] [place] [facility] [address] [id number] [place] [address] Dec, [facility] [place] [facility] [address] [id number] [place] [address] Dec, [facility] [place] [facility] [address] [id number] [place] [address] Dec, [facility] [place] [facility] [address] [id number] [place] [address] Dec, [facility] [place] [facility] [address] [id number] [place] [address] Dec, [facility] [place] [facility] [address] [id number] [place] [address] Dec, [facility] [place] [facility] [address] [id number] [place] [address] Nov, [facility] [place] [facility] [address] [id number] [place] [address] Nov, [facility] [place] [facility] [address] [id number] [place] [address] Aug, [facility] [place] [facility] [address] [id number] [place] [address] Aug, [facility] [place] [facility] [address] [id number] [place] [address] Apr, [facility] [place] [facility] [address] [id number] [place] [address] Apr, [facility] [place] [facility] [address] [id number] [place] [address] Mar, [facility] [place] [facility] [address] [id number] [place] [address] 16 Feb, 2013 [facility] [place] [facility] [address] [id number] [place] [address] Feb, [facility] [place] [facility] [address] [id number] [place] [address] Jan, [facility] [place] [facility] [address] [id number] [place] [address] Dec, [facility] [place] [facility] [address] [id number] [place] [address] Dec, [facility] [place] [facility] [address] [id number] [place] [address] Aug, [facility] [place] [facility] [address] [id number] [place] [address] Jul, [facility] [place] [facility] [address] [id number] [place] [address] Jul, [facility] [place] [facility] [address] [id number] [place] [address] 14 Jul, 2012 [facility] [place] [facility] [id number] [place] [address] Jul, [facility] [place] [facility] [address] [id number] [place] [address] Jul, [facility] [place] [facility] [address] [id number] [place] [address] Jul, [facility] [place] [facility] [address] [id number] [place] [address] Jul, [facility] [place] [facility] [address] [id number] [place] [address] Jul, [facility] [place] [facility] [address] [id number] [place] [address] Jun, [facility] [place] [facility] [address] [facility] [id number] [address] Jun, [facility] [address] [facility] [id number] [address] Jun, [facility] [address] [facility] [id number], [place] [address] Jun, [facility] [address] [facility] [id number], [place] [address] Jun, [facility] [address] [facility] [id number], [place] [address] Jun, [facility] [address] [facility] [id number], [place] [address] Mar, [facility] [address] [facility] [id number] [address] Mar, [facility] [address]65100[place] [address] Mar, [facility] [address] [facility] [id number], [place] [address] Mar, [facility] [address]65100[place] [address] Dec, [facility] [address] [id number] [address] Aug, IMMUNIZATIONS No Known Immunizations SOCIAL HISTORY Never Assessed REASON FOR VISIT Requests return call PLAN OF CARE VITAL SIGNS MEDICATIONS No Known Medications RESULTS No Results PROCEDURES No Known procedures INSTRUCTIONS MEDICATIONS ADMINISTERED No Known Medications MEDICAL (GENERAL) HISTORY Type Description Date Surgical History No Surgical history information
--- OUTSIDE RECORDS SUMMARY | 2019-01-21 09:52 | XMS REPORT ---
Author Author GABRIELA SCOTT Organization [employer] Address Unknown Phone Unavailable Care Team Providers Care Scale And Skip Car Operator Name Role Phone GBARIELA SCOTT CP Unavailable Allergies No Known Allergies Problems Problem Type Condition Code Onset Dates Condition Status Problem Diarrhea 787.91 Active Problem Hemorrhage of rectum and anus 569.3 Active Problem Urinary frequency 788.41 Active Problem Screening for malignant neoplasm of the cervix V76.2 Active Problem Flatulence, eructation, and gas pain 787.3 Active Problem Special screening examination, human papillomavirus [HPV] V73.81 Active Problem Malignant neoplasm of colon, unspecified site 153.9 Active Problem Special screening for malignant neoplasms, colon V76.51 Active Problem Cervicitis and endocervicitis 616.0 Active Problem Postmenopausal bleeding 627.1 Active Problem Malignant neoplasm of rectum 154.1 Active Problem Lumbago 724.2 Active Problem Anxiety state, unspecified 300.00 Active Medications No Known Medications Results No Known Results Summary Purpose [employer] Submission
--- OUTSIDE RECORDS SUMMARY | 2019-01-21 09:52 | XMS REPORT ---
Author Author GABRIELA SCOTT Organization [facility] Address [address] [place] [address] Care Team Providers Care Lead Nuclear Medicine Technologist Name Role Phone GABRILEA SCOTT Unavailable PROBLEMS Type Condition ICD9-CM Code NTS15-KQ Code Onset Dates Condition Status SNOMED Code Problem Hemorrhage of rectum and anus 569.3 Active 460700853 Problem Anxiety state, unspecified 300.00 Active 676680126 Problem Cervicitis and endocervicitis 616.0 Active 219202627 Problem Mixed hyperlipidemia E78.2 Active 076007707 Problem History of colon cancer Z85.038 Active 119200629 Problem Malignant neoplasm of colon, unspecified site 153.9 Active 525880233 Problem Malignant neoplasm of rectum 154.1 Active 126491490 Problem Cigarette nicotine dependence without complication F17.210 Active 74967695 Problem Reactive depression F32.9 Active 82478684 Problem Special screening for malignant neoplasms, colon V76.51 Active 753970416 Problem Screening for malignant neoplasm of the cervix V76.2 Active 589829990 Problem Diarrhea 787.91 Active 17935000 Problem Flatulence, eructation, and gas pain 787.3 Active 091893007 Problem Special screening examination, human papillomavirus [HPV] V73.81 Active 820417884 Problem Lumbago 724.2 Active 578919002 Problem Urinary frequency 788.41 Active 232937916 Problem Postmenopausal bleeding 627.1 Active [id number] ALLERGIES No Known Allergies ENCOUNTERS Encounter Location Date Diagnosis [facility] [address] [facility] [id number] [address] Mar, [facility] [id number] [address] Feb, Reactive depression F32.9 and Mixed hyperlipidemia E78.2 [facility] [address] [id number] [address] Apr, [facility] [place] [facility] [address] [id number] [place] [address] Sep, [facility] [place] [facility] [address] [id number] [place] [address] Sep, [facility] [place] [facility] [address] [id number] [place] [address] Mar, [facility] [place] [facility] [address] [id number] [place] [address] Mar, [facility] [place] [facility] [address] [id number] [place] [address] Dec, [facility] [place] [facility] [address] [id number] [place] [address] Dec, [facility] [place] [facility] [address] [id number] [place] [address] Dec, [facility] [place] [facility] [address] [id number] [place] [address] Dec, [facility] [place] [facility] [address] [id number] [place] [address] Dec, [facility] [place] [facility] [address] [id number] [place] [address] Dec, [facility] [place] [facility] [address] [id number] [place] [address] Nov, [facility] [place] [facility] [address] [id number] [place] [address] Nov, [facility] [place] [facility] [address] [id number] [place] [address] Aug, [facility] [place] [facility] [address] [id number] [place] [address] Aug, [facility] [place] [facility] [address] [id number] [place] [address] Apr, [facility] [place] [facility] [address] [id number] [place] [address] Apr, [facility] [address] [id number] [place] [address] Mar, [facility] [place] [facility] [address] [id number] [place] [address] 16 Feb, 2013 [facility] [place] [facility] [address] [id number] [place] [address] Feb, [facility] [place] [facility] [address] [id number] [place] [address] Jan, [facility] [address] [id number] [place] [address] Dec, [facility] [place] [facility] [id number] [place] [address] Dec, [facility] [id number] [place] [address] Aug, [facility] [place] [facility] [id number] [place] [address] Jul, [facility] [place] [facility] [id number] [address] Jul, [facility] [place] [facility] [id number] [address] 14 Jul, 2012 [facility] [place] [facility] [id number] [address] Jul, [facility] [place] [facility] [address] [facility] [id number] [place] [address] 07 Jul, 2012 [facility] [place] [facility] [id number] [address] 06 Jul, 2012 [facility] [place] [facility] [id number] [address] 04 Jul, 2012 [facility] [place] [facility] [id number] [address] Jul, [facility] [id number] [address] Jun, [facility] [id number] [address] Jun, [facility] [id number] [address] Jun, [facility] [id number] [address] Jun, [facility] [id number] [address] Jun, [facility] [id number] [address] Jun, [facility] [id number] [address] Mar, [facility] [id number] [address] Mar, [facility] [id number] [address] Mar, [facility] [id number] [address] Mar, [facility] [id number] [address] Dec, [facility] [id number] [address] Aug, IMMUNIZATIONS No Known Immunizations SOCIAL HISTORY Never Assessed REASON FOR VISIT f/u-DAVID mathews PLAN OF CARE Activity Details Follow Up 4 Weeks Reason: VITAL SIGNS Height 66 in 2018-03-08 Weight 137.3 lbs 2018-03-08 Temperature 97.6 degrees Fahrenheit 2018-03-08 Heart Rate 68 bpm 2018-03-08 Respiratory Rate 18 2018-03-08 Oximetry on room air:98 % 2018-03-08 BMI 22.16 kg/m2 2018-03-08 Blood pressure systolic 142 mmHg 2018-03-08 Blood pressure diastolic 78 mmHg 2018-03-08 MEDICATIONS Medication Instructions Dosage Frequency Start Date End Date Duration Status Hydrocodone-Acetaminophen 5-325 MG Orally every 6 hrs 1 tablet as needed 6h Active trazodone 100 mg 1 Daily by Oral route 1 time per day hs Mar, Not-Taking Naprosyn 500 mg 1 tablet by Oral route 2 times per day pc Dec, Not-Taking GlipiZIDE 5 mg 1 tablet by Oral route 1 time per day Dec, Not-Taking Zoloft 50 mg Orally Once a day 1 tablet 24h Feb, 30 day(s) Active RESULTS No Results PROCEDURES Procedure Date Ordered Result Body Site [facility] ESTABLISHED PATIENT Mar 08, 2018 INSTRUCTIONS MEDICATIONS ADMINISTERED No Known Medications MEDICAL (GENERAL) HISTORY Type Description Date Surgical History No Surgical history information
--- OUTSIDE RECORDS SUMMARY | 2019-01-21 09:59 | XMS REPORT | Continuity of Care Document ---
Author Organization Unknown Address Unknown Phone Unavailable Allergies Active Description Code Type Severity Reaction Onset Reported/Identified Relationship to Patient Clinical Status Yes aspirin Drug Allergy N/A N/A 12/23/2010 Yes Penicillins Drug Allergy N/A N/A 12/23/2010 Yes aspirin Drug Allergy 12/23/2010 Yes Penicillins Drug Allergy 12/23/2010 Yes aspirin [id number] Drug Allergy Unknown N/A 01/27/2016 Yes Penicillins [id number] Drug Allergy Unknown N/A 01/27/2016 Yes aspirin [id number] Drug Allergy Mild HIVES/GI UPSET 01/15/2019 Yes Penicillins [id number] Drug Allergy Mild HIVES/GI UPSET 01/15/2019 Medications There is no data. Problems Date Dx Coded Attending Type Code Diagnosis Diagnosed By 12/23/2010 250.00 DIABETES MELLITUS WITHOUT MENTION OF COMPLICATION TYPE II OR UNSPECIFIED TYPE NOT STATED UNCONTROLLED 12/23/2010 GABRIELA SCOTT MD 250.00 DIABETES MELLITUS WITHOUT MENTION OF COMPLICATION TYPE II OR UNSPECIFIED TYPE NOT STATED UNCONTROLLED 12/23/2010 ASHLEY MOLINA DO 250.00 DIABETES MELLITUS WITHOUT MENTION OF COMPLICATION TYPE II OR UNSPECIFIED TYPE NOT STATED UNCONTROLLED 12/23/2010 250.00 DIABETES MELLITUS WITHOUT MENTION OF COMPLICATION TYPE II OR UNSPECIFIED TYPE NOT STATED UNCONTROLLED 12/23/2010 GABRIELA SCOTT MD 250.00 DIABETES MELLITUS WITHOUT MENTION OF COMPLICATION TYPE II OR UNSPECIFIED TYPE NOT STATED UNCONTROLLED 12/23/2010 250.00 DIABETES MELLITUS WITHOUT MENTION OF COMPLICATION TYPE II OR UNSPECIFIED TYPE NOT STATED UNCONTROLLED 12/23/2010 250.00 DIABETES MELLITUS WITHOUT MENTION OF COMPLICATION TYPE II OR UNSPECIFIED TYPE NOT STATED UNCONTROLLED 12/23/2010 250.00 DIABETES MELLITUS WITHOUT MENTION OF COMPLICATION TYPE II OR UNSPECIFIED TYPE NOT STATED UNCONTROLLED 12/23/2010 COURTNEY MAYER MD 250.00 DIABETES MELLITUS WITHOUT MENTION OF COMPLICATION TYPE II OR UNSPECIFIED TYPE NOT STATED UNCONTROLLED 12/23/2010 COURTNEY MAYER MD 250.00 DIABETES MELLITUS WITHOUT MENTION OF COMPLICATION TYPE II OR UNSPECIFIED TYPE NOT STATED UNCONTROLLED 12/23/2010 GABRIELA SCOTT MD 250.00 DIABETES MELLITUS WITHOUT MENTION OF COMPLICATION TYPE II OR UNSPECIFIED TYPE NOT STATED UNCONTROLLED 12/23/2010 GABRIELA SCOTT MD 250.00 DIABETES MELLITUS WITHOUT MENTION OF COMPLICATION TYPE II OR UNSPECIFIED TYPE NOT STATED UNCONTROLLED 12/23/2010 GABRIELA SCOTT MD 250.00 DIABETES MELLITUS WITHOUT MENTION OF COMPLICATION TYPE II OR UNSPECIFIED TYPE NOT STATED UNCONTROLLED 12/23/2010 GABRIELA SCOTT MD 250.00 DIABETES MELLITUS WITHOUT MENTION OF COMPLICATION TYPE II OR UNSPECIFIED TYPE NOT STATED UNCONTROLLED 06/27/2012 569.3 RECTAL BLEEDING 06/27/2012 788.41 URINARY FREQUENCY 06/27/2012 V76.51 COLON CANCER SCREENING 06/27/2012 GABRIELA SCOTT MD 569.3 RECTAL BLEEDING 06/27/2012 GABRIELA SCOTT MD 788.41 URINARY FREQUENCY 06/27/2012 GABRIELA SCOTT MD V76.51 COLON CANCER SCREENING 06/27/2012 ASHLEY MOLINA DO 569.3 RECTAL BLEEDING 06/27/2012 ASHLEY MOLINA DO K 788.41 URINARY FREQUENCY 06/27/2012 ASHLEY MOLINA DO K V76.51 COLON CANCER SCREENING 06/27/2012 569.3 RECTAL BLEEDING 06/27/2012 788.41 URINARY FREQUENCY 06/27/2012 V76.51 COLON CANCER SCREENING 06/27/2012 GABRIELA SCOTT MD 569.3 RECTAL BLEEDING 06/27/2012 GABRIELA SCOTT MD 788.41 URINARY FREQUENCY 06/27/2012 GABRIELA SCOTT MD V76.51 COLON CANCER SCREENING 06/27/2012 569.3 RECTAL BLEEDING 06/27/2012 788.41 URINARY FREQUENCY 06/27/2012 V76.51 COLON CANCER SCREENING 06/27/2012 569.3 RECTAL BLEEDING 06/27/2012 788.41 URINARY FREQUENCY 06/27/2012 V76.51 COLON CANCER SCREENING 06/27/2012 569.3 RECTAL BLEEDING 06/27/2012 788.41 URINARY FREQUENCY 06/27/2012 V76.51 COLON CANCER SCREENING 06/27/2012 MORENO GANDHI, COURTNEY Berrios 569.3 RECTAL BLEEDING 06/27/2012 MORENO GANDHI, COURTNEY Berrios 788.41 URINARY FREQUENCY 06/27/2012 COURTNEY MAYER MD V76.51 COLON CANCER SCREENING 06/27/2012 MORENO GANDHI, COURTNEY Berrios 569.3 RECTAL BLEEDING 06/27/2012 MORENO GANDHI, COURTNEY Berrios 788.41 URINARY FREQUENCY 06/27/2012 MORENO GANDHI, COURTNEY Berrios V76.51 COLON CANCER SCREENING 06/27/2012 SONIA GANDHI, GABRIELA 569.3 RECTAL BLEEDING 06/27/2012 SONIA GANDHI, GABRIELA 788.41 URINARY FREQUENCY 06/27/2012 SONIA GANDHI, GABRIELA V76.51 COLON CANCER SCREENING 06/27/2012 SONIA GANDHI, GABRIELA 569.3 RECTAL BLEEDING 06/27/2012 SONIA GANDHI, GABRIELA 788.41 URINARY FREQUENCY 06/27/2012 SONIA GANDHI, GABRIELA V76.51 COLON CANCER SCREENING 06/27/2012 SONIA GANDHI, GABRIELA 569.3 RECTAL BLEEDING 06/27/2012 SONIA GANDHI, GABRIELA 788.41 URINARY FREQUENCY 06/27/2012 SONIA GANDHI, GABRIELA V76.51 COLON CANCER SCREENING 06/27/2012 SONIA GANDHI, GABRIELA 569.3 RECTAL BLEEDING 06/27/2012 SONIA GANDHI, GABRIELA 788.41 URINARY FREQUENCY 06/27/2012 SONAI GANDHI, GABRIELA V76.51 COLON CANCER SCREENING 07/15/2012 GABRIELA SCOTT MD 787.91 DIARRHEA 07/15/2012 ASHLEY MOLINA DO 787.91 DIARRHEA 07/15/2012 787.91 DIARRHEA 07/15/2012 GABRIELA SCOTT MD 787.91 DIARRHEA 07/15/2012 787.91 DIARRHEA 07/15/2012 787.91 DIARRHEA 07/15/2012 787.91 DIARRHEA 07/15/2012 MORENO GANDHI, COURTNEY Berrios 787.91 DIARRHEA 07/15/2012 MORENO GANDHI, COURTNEY Berrios 787.91 DIARRHEA 07/15/2012 GABRIELA SCOTT MD 787.91 DIARRHEA 07/15/2012 GABRIELA SCOTT MD 787.91 DIARRHEA 07/15/2012 SONIA GANDHI, GABRIELA 787.91 DIARRHEA 07/15/2012 GABRIELA SCOTT MD 787.91 DIARRHEA 07/26/2012 ASHLEY MOLINA DO K 616.0 CERVICITIS 07/26/2012 ASHLEY MOLINA DO 627.1 POSTMENOPAUSAL BLEEDING 07/26/2012 ASHLEY MOLINA DO K 787.3 FLATULENCE ERUCTATION AND GAS PAIN 07/26/2012 TRACY HATFIELDASHLEY V73.81 HPV SCREENING 07/26/2012 TRACY HATFIELD ASHLEY K V76.2 CERVICAL CANCER SCREENING (PAP SMEAR) 07/26/2012 616.0 CERVICITIS 07/26/2012 627.1 POSTMENOPAUSAL BLEEDING 07/26/2012 787.3 FLATULENCE ERUCTATION AND GAS PAIN 07/26/2012 V73.81 HPV SCREENING 07/26/2012 V76.2 CERVICAL CANCER SCREENING (PAP SMEAR) 07/26/2012 GABRIELA SCOTT MD 616.0 CERVICITIS 07/26/2012 GABRIELA SCOTT MD 627.1 POSTMENOPAUSAL BLEEDING 07/26/2012 GABRIELA SCOTT MD 787.3 FLATULENCE ERUCTATION AND GAS PAIN 07/26/2012 GABRIELA SCOTT MD V73.81 HPV SCREENING 07/26/2012 GABRIELA SCOTT MD V76.2 CERVICAL CANCER SCREENING (PAP SMEAR) 07/26/2012 616.0 CERVICITIS 07/26/2012 627.1 POSTMENOPAUSAL BLEEDING 07/26/2012 787.3 FLATULENCE ERUCTATION AND GAS PAIN 07/26/2012 V73.81 HPV SCREENING 07/26/2012 V76.2 CERVICAL CANCER SCREENING (PAP SMEAR) 07/26/2012 616.0 CERVICITIS 07/26/2012 627.1 POSTMENOPAUSAL BLEEDING 07/26/2012 787.3 FLATULENCE ERUCTATION AND GAS PAIN 07/26/2012 V73.81 HPV SCREENING 07/26/2012 V76.2 CERVICAL CANCER SCREENING (PAP SMEAR) 07/26/2012 616.0 CERVICITIS 07/26/2012 627.1 POSTMENOPAUSAL BLEEDING 07/26/2012 787.3 FLATULENCE ERUCTATION AND GAS PAIN 07/26/2012 V73.81 HPV SCREENING 07/26/2012 V76.2 CERVICAL CANCER SCREENING (PAP SMEAR) 07/26/2012 MORENO GANDHI, COURTNEY Berrios 616.0 CERVICITIS 07/26/2012 COURTNEY MAYER MD 627.1 POSTMENOPAUSAL BLEEDING 07/26/2012 MORENO GANDHI, COURTNEY Berrios 787.3 FLATULENCE ERUCTATION AND GAS PAIN 07/26/2012 COURTNEY MAYER MD V73.81 HPV SCREENING 07/26/2012 MORENO GANDHI, COURTNEY Berrios V76.2 CERVICAL CANCER SCREENING (PAP SMEAR) 07/26/2012 MORENO GANDHI, COURTNEY Berrios 616.0 CERVICITIS 07/26/2012 MORENO GANDHI, COURTNEY Berrios 627.1 POSTMENOPAUSAL BLEEDING 07/26/2012 MORENO GANDHI, COURTNEY Berrios 787.3 FLATULENCE ERUCTATION AND GAS PAIN 07/26/2012 MORENO GANDHI, COURTNEY Berrios V73.81 HPV SCREENING 07/26/2012 MORENO GANDHI, COURTNEY Berrios V76.2 CERVICAL CANCER SCREENING (PAP SMEAR) 07/26/2012 GABRIELA SCOTT MD 616.0 CERVICITIS 07/26/2012 GABRIELA SCOTT MD 627.1 POSTMENOPAUSAL BLEEDING 07/26/2012 GABRIELA SCOTT MD 787.3 FLATULENCE ERUCTATION AND GAS PAIN 07/26/2012 GABRIELA SCOTT MD V73.81 HPV SCREENING 07/26/2012 GABRIELA SCOTT MD V76.2 CERVICAL CANCER SCREENING (PAP SMEAR) 07/26/2012 GABRIELA SCOTT MD 616.0 CERVICITIS 07/26/2012 GABRIELA SCOTT MD 627.1 POSTMENOPAUSAL BLEEDING 07/26/2012 GABRIELA SCOTT MD 787.3 FLATULENCE ERUCTATION AND GAS PAIN 07/26/2012 GABRIELA SCOTT MD V73.81 HPV SCREENING 07/26/2012 GABRIELA SCOTT MD V76.2 CERVICAL CANCER SCREENING (PAP SMEAR) 07/26/2012 GABRIELA SCOTT MD 616.0 CERVICITIS 07/26/2012 GABRIELA SCOTT MD 627.1 POSTMENOPAUSAL BLEEDING 07/26/2012 GABRIELA SCOTT MD 787.3 FLATULENCE ERUCTATION AND GAS PAIN 07/26/2012 GABRIELA SCOTT MD V73.81 HPV SCREENING 07/26/2012 GABRIELA SCOTT MD V76.2 CERVICAL CANCER SCREENING (PAP SMEAR) 07/26/2012 GABRIELA SCOTT MD 616.0 CERVICITIS 07/26/2012 GABRIELA SCOTT MD 627.1 POSTMENOPAUSAL BLEEDING 07/26/2012 GBARIELA SCOTT MD 787.3 FLATULENCE ERUCTATION AND GAS PAIN 07/26/2012 GABRIELA SCOTT MD V73.81 HPV SCREENING 07/26/2012 GABRIELA SCOTT MD6.2 CERVICAL CANCER SCREENING (PAP SMEAR) 08/19/2012 Ot 154.1 MALIGNANT NEOPL RECTUM 08/19/2012 Ot 211.3 BENIGN NEOPLASM LG BOWEL 08/19/2012 Ot 211.4 BENIGN NEOPL RECTUM/ANUS 08/19/2012 Ot 562.10 DIVERTICULOSIS COLON (W/O MENT OF HEMORR 11/27/2012 FLORYADRIEN Ot 154.1 MALIGNANT NEOPL RECTUM 11/27/2012 FLORYADRIEN Ot 250.00 DIAB FELIZ WO COMPL, TYPE II OR UNSPEC TY 11/27/2012 FLORYADRIEN Ot 305.1 TOBACCO USE DISORDER 11/27/2012 FLORYADRIEN Ot 599.70 HEMATURIA, UNSPECIFIED 11/27/2012 ADRIEN HILL Ot 692.82 DERMATITIS DUE TO OTHER RADIATION 11/27/2012 ADRIEN HILL Ot 788.1 DYSURIA 11/27/2012 ADRIEN HILL Ot V16.0 FAMILY HX-GI MALIGNANCY 11/27/2012 ADRIEN HILL Ot V58.0 ENCOUNTER FOR RADIOTHERAPY 11/27/2012 ADRIEN HILL Ot V58.11 ENCOUNTER FOR ANTINEOPLASTIC CHEMOTHERAP 11/27/2012 ADRIEN HILL Ot V58.69 OTH MED,LT,CURRENT USE 12/25/2012 MORENO GANDHI, COURTNEY Berrios Ot 154.1 MALIGNANT NEOPL RECTUM 12/25/2012 COURTNEY MAYER MD Ot 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 12/25/2012 COURTNEY MAYER MD Ot 232.6 CA IN SITU SKIN ARM 12/25/2012 COURTNEY MAYER MD Ot 250.00 DIAB FELIZ WO COMPL, TYPE II OR UNSPEC TY 12/25/2012 COURTNEY MAYER MD Ot 305.1 TOBACCO USE DISORDER 12/25/2012 COURTNEY MAYER MD Ot 311 DEPRESSIVE DISORDER NEC 12/25/2012 COURTNEY MAYER MD Ot 780.62 POSTPROCEDURAL FEVER 12/30/2012 COURTNEY MAYER MD Ot 196.5 MAL PATRICIO LYMPH-INGUIN/LEG 12/30/2012 COURTNEY MAYER MD Ot 250.00 DIAB FELIZ WO COMPL, TYPE II OR UNSPEC TY 12/30/2012 COURTNEY MAYER MD Ot 311 DEPRESSIVE DISORDER NEC 12/30/2012 COURTNEY MAYER MD Ot V10.06 HX-RECTAL ANAL MALIGN 12/30/2012 COURTNEY MAYER MD Ot V44.3 COLOSTOMY STATUS 12/30/2012 COURTNEY MAYER MD Ot V58.42 AFTERCARE POST SURGERY NEOPLASM 01/20/2013 154.1 MALIGNANT NEOPLASM OF RECTUM 01/20/2013 154.1 MALIGNANT NEOPLASM OF RECTUM 01/20/2013 COURTNEY MAYER MD 154.1 MALIGNANT NEOPLASM OF RECTUM 01/20/2013 COURTNEY MAYER MD 154.1 MALIGNANT NEOPLASM OF RECTUM 01/20/2013 GABRIELA SCOTT MD 154.1 MALIGNANT NEOPLASM OF RECTUM 01/20/2013 GABRIELA SCOTT MD 154.1 MALIGNANT NEOPLASM OF RECTUM 01/20/2013 GABRIELA SCOTT MD 154.1 MALIGNANT NEOPLASM OF RECTUM 01/20/2013 GABRIELA SCOTT MD 154.1 MALIGNANT NEOPLASM OF RECTUM 02/05/2013 COURTNEY MAYER MD Ot 154.1 MALIGNANT NEOPL RECTUM 02/05/2013 COURTNEY MAYER MD Ot 250.00 DIAB FELIZ WO COMPL, TYPE II OR UNSPEC TY 03/04/2013 ADRIEN HILL Ot 154.1 MALIGNANT NEOPL RECTUM 03/04/2013 ADRIEN HILL Ot V58.11 ENCOUNTER FOR ANTINEOPLASTIC CHEMOTHERAP 03/18/2013 COURTNEY MAYER MD Ot 998.89 OTHER SPEC COMPLICATIONS OF PROCEDURES N 03/18/2013 COURTNEY MAYER MD Ot V58.69 OT MED,LT,CURRENT USE 04/04/2013 TABATHA AGUILA RN CIRCULATING Ot 709.8 SKIN DISORDERS NEC 04/04/2013 TABATHA AGUILA RN CIRCULATING Ot V44.3 COLOSTOMY STATUS 04/25/2013 COURTNEY MAYER MD 153.9 CA OF COLON 04/25/2013 COURTNEY MAYER MD 153.9 CA OF COLON 04/25/2013 GABRIELA SCOTT MD 153.9 CA OF COLON 04/25/2013 GABRIELA SCOTT MD 153.9 CA OF COLON 04/25/2013 GABRIELA SCOTT MD 153.9 CA OF COLON 04/25/2013 GABRIELA SCOTT MD 153.9 CA OF COLON 06/08/2013 ADRIEN HILL Ot 154.1 MALIGNANT NEOPL RECTUM 06/08/2013 FLORYADRIEN N Ot 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 06/08/2013 FLORYADRIEN N Ot V15.3 HX OF IRRADIATION 06/08/2013 FLORYADRIEN N Ot V44.3 COLOSTOMY STATUS 06/08/2013 FLORY ADRIEN N Ot V58.11 ENCOUNTER FOR ANTINEOPLASTIC CHEMOTHERAP 06/08/2013 ADRIEN HILL Ot V58.69 OTH MED,LT,CURRENT USE 09/09/2013 ADRIEN HILL N Ot 154.1 MALIGNANT NEOPL RECTUM 09/09/2013 FLORYADRIEN N Ot 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 09/09/2013 ADRIEN HILL Ot V15.3 HX OF IRRADIATION 09/09/2013 FLORYADRIEN GONZALES Ot V44.3 COLOSTOMY STATUS 09/09/2013 FLORYADRIEN Ot V58.11 ENCOUNTER FOR ANTINEOPLASTIC CHEMOTHERAP 09/09/2013 ADRIEN HILL Ot V58.69 OTH MED,LT,CURRENT USE 10/20/2013 MORENO GANDHI, COURTNEY Berrios Ot 211.3 BENIGN NEOPLASM LG BOWEL 10/20/2013 MORENO GANDHI, COURTNEY Berrios Ot 250.00 DIAB FELIZ WO COMPL, TYPE II OR UNSPEC TY 10/20/2013 MORENO GANDHI, COURTNEY Berrios Ot V10.06 HX-RECTAL ANAL MALIGN 10/20/2013 MORENO GANDHI, COURTNEY Berrios Ot V87.41 PERSONAL HISTORY OF ANTINEOPLASTIC CHEMO 12/24/2013 ADRIEN HILL N Ot 154.1 MALIGNANT NEOPL RECTUM 12/24/2013 ADRIEN HILL Ot 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 12/24/2013 ADRIEN HILL Ot V15.3 HX OF IRRADIATION 12/24/2013 ADRIEN HILL Ot V44.3 COLOSTOMY STATUS 12/24/2013 ADRIEN HILL Ot V58.69 OTH MED,LT,CURRENT USE 12/24/2013 ADRIEN HILL N Ot V58.81 FIT/ADJ VASCULAR CATHETER 01/19/2014 SONIA GANDHI, GABRIELA 724.2 LUMBAGO 01/19/2014 SONIA GANDHI, GABRIELA 724.2 LUMBAGO 04/07/2014 ADRIEN HILL N Ot 154.1 MALIGNANT NEOPL RECTUM 04/07/2014 FLORYADRIEN GONZALES N Ot 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 04/07/2014 FLORYADRIEN GONZALES N Ot V15.3 HX OF IRRADIATION 04/07/2014 FLORYADRIEN GONZALES N Ot V44.3 COLOSTOMY STATUS 04/07/2014 ADRIEN [facility]ILL N Ot V58.69 OTH MED,LT,CURRENT USE 04/07/2014 FLORYADRIEN GONZALES N Ot V58.81 FIT/ADJ VASCULAR CATHETER 04/16/2014 SONIA GANDHI, GABRIELA 300.00 ANXIETY STATE UNSPECIFIED 06/29/2014 FLORYADRIEN GONZALES N Ot 154.1 06/29/2014 FLORY, BOBRADHA N Ot 196.6 06/29/2014 FLORYADRIEN GONZALES N Ot V15.3 06/29/2014 FLORYADRIEN GONZALES N Ot V44.3 06/29/2014 FLORYADRIEN GONZALES N Ot V58.69 06/29/2014 FLORYADRIEN GONZALES N Ot V58.81 07/26/2014 FLORYADRIEN GONZALES N Ot 154.1 MALIGNANT NEOPL RECTUM 07/26/2014 FLORYADRIEN N Ot 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 07/26/2014 FLORYADRIEN GONZALES N Ot V15.3 HX OF IRRADIATION 07/26/2014 ADRIEN [facility]ILL N Ot V44.3 COLOSTOMY STATUS 07/26/2014 ADRIEN HILL N Ot V58.69 OTH MED,LT,CURRENT USE 07/26/2014 ADRIEN [facility]ILL N Ot V58.81 FIT/ADJ VASCULAR CATHETER 07/30/2014 TABATHA AGUILA Ot V76.12 07/31/2014 Ot V76.12 07/31/2014 Ot V72.84 07/31/2014 Ot 627.1 07/31/2014 Ot 154.1 07/31/2014 Ot 154.1 07/31/2014 Ot 154.1 07/31/2014 Ot 305.1 07/31/2014 TABATHA AGUILAP Ot 154.1 07/31/2014 TABATHA AGUILAP Ot 692.82 07/31/2014 TABATHA AGUILAP Ot 782.2 07/31/2014 TABATHA AGUILAP Ot V15.3 07/31/2014 MINGO HILAH S RN CIRCULATING Ot V15.82 07/31/2014 AGUILA, HILAH S RN CIRCULATING Ot V58.69 07/31/2014 AGUILA, HILAH S RN CIRCULATING Ot V87.41 07/31/2014 MORENO GANDHI, COURTNEY M Ot 154.1 07/31/2014 MORENO GANDHI, COURTNEY M Ot V72.84 07/31/2014 MORENO GANDHI, COURTNEY M Ot 154.1 07/31/2014 MORENO GANDHI, COURTNEY M Ot V72.83 07/31/2014 MORENO GANDHI, COURTNEY M Ot V74.8 07/31/2014 AGUILA, HILAH S RN CIRCULATING Ot 154.1 07/31/2014 AGUILA, HILAH S RN CIRCULATING Ot V15.3 07/31/2014 AGUILA, HILAH S RN CIRCULATING Ot V15.82 07/31/2014 AGUILA, HILAH S RN CIRCULATING Ot V58.69 07/31/2014 AGUILA HILAH S RN CIRCULATING Ot V87.41 07/31/2014 Ot 154.1 07/31/2014 Ot V58.0 07/31/2014 MORENO GANDHI, COURNTEY M Ot 154.1 07/31/2014 MORENO GANDHI, COURTNEY M Ot V72.84 07/31/2014 MORENO GANDHI, COURTNEY M Ot V74.8 07/31/2014 AGUILA, HILAH S RN CIRCULATING Ot 154.1 07/31/2014 AGUILA HILAH S RN CIRCULATING Ot 196.6 07/31/2014 AGUILA, HILAH S RN CIRCULATING Ot 338.18 07/31/2014 AGUILA, HILAH S RN CIRCULATING Ot V15.3 07/31/2014 AGUILA, HILAH S RN CIRCULATING Ot V44.3 07/31/2014 AGUILA, HILAH S RN CIRCULATING Ot V58.69 07/31/2014 AGUILA, HILAH S RN CIRCULATING Ot V87.41 07/31/2014 [facility]RIEN [facility] N Ot 154.1 07/31/2014 MORENO GANDHI, COURTNEY M Ot 154.1 07/31/2014 MORENO GANDHI, COURTNEY M Ot V72.84 07/31/2014 ADRI[facility] N Ot 154.1 07/31/2014 AD[facility] Ot 154.1 07/31/2014 ADRIEN [facility]ILL Ot V58.69 07/31/2014 AGUILATABATHA Rios S RN CIRCULATING Ot 154.1 07/31/2014 AGUILATABATHA Rios S RN CIRCULATING Ot 250.00 07/31/2014 TABATHA AGUILA S RN CIRCULATING Ot 300.00 07/31/2014 AGUILATABATHA Rios S RN CIRCULATING Ot 788.1 07/31/2014 AGUILATABATHA S RN CIRCULATING Ot 788.41 07/31/2014 AGUILATABATHA Rios S RN CIRCULATING Ot V58.69 07/31/2014 [facility] N Ot 154.1 07/31/2014 ADRIEN [facility] N Ot V58.69 07/31/2014 AGUILATABATHA Rios S RN CIRCULATING Ot 154.1 07/31/2014 TABATHA AGUILA S RN CIRCULATING Ot 250.00 07/31/2014 AGUILATABATHA S RN CIRCULATING Ot V58.69 07/31/2014 AGUILATABATHA S RN CIRCULATING Ot 154.1 07/31/2014 AGUILATABATHA S RN CIRCULATING Ot 196.6 07/31/2014 AGUILATABATHA Rios S RN CIRCULATING Ot 305.1 07/31/2014 AGUILATABATHA Rios S RN CIRCULATING Ot V15.3 07/31/2014 AGUILATABATHA S RN CIRCULATING Ot V44.3 07/31/2014 AGUILATABATHA Rios S RN CIRCULATING Ot V58.69 07/31/2014 [facility] N Ot 154.1 07/31/2014 MORENO GANDHI, COURTNEY M Ot V72.84 07/31/2014 AGUILATABATHA S RN CIRCULATING Ot 154.1 07/31/2014 AGUILATABATHA S RN CIRCULATING Ot 196.6 07/31/2014 AGUILATABATHA S RN CIRCULATING Ot V15.3 07/31/2014 AGUILATABATHA S RN CIRCULATING Ot V44.3 07/31/2014 AGUILATABATHA S RN CIRCULATING Ot V58.69 07/31/2014 [facility] N Ot 722.4 07/31/2014 AGUILATABATHA S RN CIRCULATING Ot 154.1 07/31/2014 AGUILA, TABATHA S RN CIRCULATING Ot 196.6 07/31/2014 AGUILA, TABATHA S RN CIRCULATING Ot V15.3 07/31/2014 AGUILA, TABATHA S RN CIRCULATING Ot V44.3 07/31/2014 AGUILA, TABATHA S RN CIRCULATING Ot V58.69 07/31/2014 AGUILA, TABATHA S RN CIRCULATING Ot 154.1 07/31/2014 AGUILA, TABATHA S RN CIRCULATING Ot 196.6 07/31/2014 AGUILA, TABATHA S RN CIRCULATING Ot V15.3 07/31/2014 AGUILA, TABATHA S RN CIRCULATING Ot V44.3 07/31/2014 AGUIAL, TABATHA S RN CIRCULATING Ot V58.69 07/31/2014 AGUILA, TABATHA S RN CIRCULATING Ot V58.81 07/31/2014 AGUILA, TAABTHA S RN CIRCULATING Ot V76.12 07/31/2014 FLORY, BOBAN N Ot 154.1 07/31/2014 FLORY, BOBAN N Ot 196.6 07/31/2014 FLORY, BOBAN N Ot V15.3 07/31/2014 FLORY, BOBAN N Ot V44.3 07/31/2014 FLORY, BOBAN N Ot V58.69 07/31/2014 FLORY, BOBAN N Ot V58.81 07/31/2014 AGUILA, TABATHA S RN CIRCULATING Ot V76.12 08/03/2014 AGUILA, TABATHA S RN CIRCULATING Ot V76.12 08/18/2014 AGUILA, TABATHA S RN CIRCULATING Ot 154.1 08/18/2014 AGUILA, TABATHA S RN CIRCULATING Ot 196.6 08/18/2014 AGUILA, TABATHA S RN CIRCULATING Ot V15.3 08/18/2014 AGUILA, TABATHA S RN CIRCULATING Ot V44.3 08/18/2014 AGUILA, TABATHA S RN CIRCULATING Ot V58.69 08/18/2014 AGUILA, TABATHA S RN CIRCULATING Ot V58.81 09/22/2014 FLORY, BOBAN N Ot 154.1 10/27/2014 FLORY, BOBAN N Ot 154.1 10/27/2014 FLORY, BOBAN N Ot 196.6 10/27/2014 FLORY, BOBAN N Ot V15.3 10/27/2014 FLORY, BOBAN N Ot V44.3 10/27/2014 FLORY, BOBAN N Ot V58.69 10/27/2014 FLORY, BOBAN N Ot V58.81 11/21/2014 MODESTO AGUILAJONATHON Rios RN CIRCULATING Ot V76.12 12/02/2014 FLORY, BOBAN N Ot 154.1 MALIGNANT NEOPL RECTUM 12/02/2014 FLORY, BOBAN N Ot 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 12/02/2014 FLORY, BOBAN N Ot V15.3 HX OF IRRADIATION 12/02/2014 FLORY, BOBAN N Ot V44.3 COLOSTOMY STATUS 12/02/2014 FLORY, BOBAN N Ot V58.69 OT MED,LT,CURRENT USE 12/02/2014 FLORY, BOBAN N Ot V58.81 FIT/ADJ VASCULAR CATHETER 12/02/2014 FLORY, BOBAN N Ot 154.1 12/02/2014 FLORY, BOBAN N Ot 196.6 12/02/2014 FLORY, BOBAN N Ot V15.3 12/02/2014 FLORY, BOBAN N Ot V44.3 12/02/2014 FLORY, BOBAN N Ot V58.69 12/02/2014 FLORY, BOBAN N Ot V58.81 12/07/2014 MORENO GANDHI, COURTNEY Berrios Ot 211.3 BENIGN NEOPLASM LG BOWEL 12/07/2014 MORENO GANDHI, COURTNEY Berrios Ot 305.1 TOBACCO USE DISORDER 12/07/2014 MORENO GANDHI, COURTNEY Berrios Ot 401.9 HYPERTENSION NOS 12/07/2014 MORENO GANDHI, COURTNEY Berrios Ot 562.10 DIVERTICULOSIS COLON (W/O MENT OF HEMORR 12/07/2014 MORENO GANDHI, COURTNEY Berrios Ot V10.06 HX-RECTAL ANAL MALIGN 12/14/2014 FLORY, BOBAN N Ot 154.1 12/14/2014 FLORY, BOBAN N Ot 196.6 12/14/2014 FLORY, BOBAN N Ot V15.3 12/14/2014 FLORY, BOBAN N Ot V44.3 12/14/2014 FLORY, BOBAN N Ot V58.69 12/14/2014 FLORY, BOBAN N Ot V58.81 12/14/2014 FLORY, BOBAN N Ot 154.1 12/14/2014 FLORY, BOBAN N Ot 196.6 12/14/2014 FLORY, BOBAN N Ot V15.3 12/14/2014 FLORY, BOBAN N Ot V44.3 12/14/2014 FLORY, BOBAN N Ot V58.69 12/14/2014 FLORY, BOBAN N Ot V58.81 12/14/2014 FLORY, BOBAN N Ot 154.1 12/14/2014 FLORY, BOBAN N Ot 196.6 12/14/2014 FLORY, BOBAN N Ot V15.3 12/14/2014 FLORY, BOBAN N Ot V44.3 12/14/2014 FLORY, BOBAN N Ot V58.69 12/14/2014 FLORY, BOBAN N Ot V58.81 12/15/2014 FLORY, BOBAN N Ot 154.1 12/15/2014 FLORY, BOBAN N Ot 196.6 12/15/2014 FLORY, BOBAN N Ot V15.3 12/15/2014 FLORY, BOBAN N Ot V44.3 12/15/2014 FLORY, BOBAN N Ot V58.69 12/15/2014 FLORY, BOBAN N Ot V58.81 12/28/2014 FLORY, BOBAN N Ot 154.1 12/28/2014 FLORY, BOBAN N Ot 196.6 12/28/2014 FLORY, BOBAN N Ot V15.3 12/28/2014 FLORY, BOBAN N Ot V44.3 12/28/2014 FLORY, BOBAN N Ot V58.69 12/28/2014 FLORY, BOBAN N Ot V58.81 01/14/2015 FLORY, BOBAN N Ot 154.1 01/14/2015 FLORY, BOBAN N Ot 196.6 01/14/2015 FLORY, BOBAN N Ot V15.3 01/14/2015 FLORY, BOBAN N Ot V44.3 01/14/2015 FLORY, BOBAN N Ot V58.69 01/14/2015 FLORY, BOBAN N Ot V58.81 01/22/2015 FLORY, BOBAN N Ot 154.1 01/22/2015 FLORY, BOBAN N Ot 196.6 01/22/2015 FLORY, BOBAN N Ot V15.3 01/22/2015 FLORY, BOBAN N Ot V44.3 01/22/2015 FLORY, BOBAN N Ot V58.69 01/22/2015 FLORY, BOBAN N Ot V58.81 01/25/2015 Ot V72.84 01/25/2015 Ot 627.1 01/25/2015 Ot 154.1 01/25/2015 Ot 154.1 01/25/2015 Ot 154.1 01/25/2015 Ot 305.1 01/25/2015 AGUILATABATHA Rios S RN CIRCULATING Ot 154.1 01/25/2015 MINGO TABATHA S RN CIRCULATING Ot 692.82 01/25/2015 MINGO TABATHA S RN CIRCULATING Ot 782.2 01/25/2015 MINGO TABATHA S RN CIRCULATING Ot V15.3 01/25/2015 AGUILA, TABATHA S RN CIRCULATING Ot V15.82 01/25/2015 MINGO TABATHA S RN CIRCULATING Ot V58.69 01/25/2015 MINGO TABATHA S RN CIRCULATING Ot V87.41 01/25/2015 MORENO GANDHI, COURTNEY M Ot 154.1 01/25/2015 MORENO GANDHI, COURTNEY M Ot V72.84 01/25/2015 MORENO GANDHI, COURTNEY M Ot 154.1 01/25/2015 MORENO GANDHI, COURTNEY M Ot V72.83 01/25/2015 MORENO GANDHI, COURTNEY M Ot V74.8 01/25/2015 MINGO TABATHA S RN CIRCULATING Ot 154.1 01/25/2015 MINGO TABATHA S RN CIRCULATING Ot V15.3 01/25/2015 MINGO TAABTHA S RN CIRCULATING Ot V15.82 01/25/2015 MINGO TABATHA S RN CIRCULATING Ot V58.69 01/25/2015 MINGO TABATHA S RN CIRCULATING Ot V87.41 01/25/2015 Ot 154.1 01/25/2015 Ot V58.0 01/25/2015 MORENO GANDHI, COURTNEY M Ot 154.1 01/25/2015 MORENO GANDHI, COURTNEY M Ot V72.84 01/25/2015 MORENO GANDHI, COURTNEY M Ot V74.8 01/25/2015 MINGO TABATHA S RN CIRCULATING Ot 154.1 01/25/2015 IMNGO TABATHA S RN CIRCULATING Ot 196.6 01/25/2015 MINGO TABATHA S RN CIRCULATING Ot 338.18 01/25/2015 MODESTO AGUILAJONATHON S RN CIRCULATING Ot V15.3 01/25/2015 MODESTO AGUILAJONATHON S RN CIRCULATING Ot V44.3 01/25/2015 AGUILATABATHA Rios S RN CIRCULATING Ot V58.69 01/25/2015 AGUILA TABATHA S RN CIRCULATING Ot V87.41 01/25/2015 ADRIEN HILL N Ot 154.1 01/25/2015 MORENO GANDHI, COURTNEY M Ot 154.1 01/25/2015 MORENO GANDHI, COURTNEY M Ot V72.84 01/25/2015 ADRIEN HILL N Ot 154.1 01/25/2015 ADRIEN HILL N Ot 154.1 01/25/2015 ADRIEN HILL N Ot V58.69 01/25/2015 AGUILA TABATHA S RN CIRCULATING Ot 154.1 01/25/2015 MINGO TABATHA S RN CIRCULATING Ot 250.00 01/25/2015 MINGO TABATHA S RN CIRCULATING Ot 300.00 01/25/2015 MINGO TABATHA S RN CIRCULATING Ot 788.1 01/25/2015 MINGO TABATHA S RN CIRCULATING Ot 788.41 01/25/2015 MINGO TABATHA S RN CIRCULATING Ot V58.69 01/25/2015 ADRIEN HILL N Ot 154.1 01/25/2015 ADRIEN HILL N Ot V58.69 01/25/2015 MINGO TABATHA S RN CIRCULATING Ot 154.1 01/25/2015 MINGO TABATHA S RN CIRCULATING Ot 250.00 01/25/2015 AGUILA, TABATHA S RN CIRCULATING Ot V58.69 01/25/2015 MINGO TABATHA S RN CIRCULATING Ot 154.1 01/25/2015 MINGO TABATHA S RN CIRCULATING Ot 196.6 01/25/2015 AGUILA, TABATHA S RN CIRCULATING Ot 305.1 01/25/2015 MINGO TABATHA S RN CIRCULATING Ot V15.3 01/25/2015 AGUILA, MODESTOAH S RN CIRCULATING Ot V44.3 01/25/2015 MINGO MODESTOAH S RN CIRCULATING Ot V58.69 01/25/2015 ADRIEN [place]ILL N Ot 154.1 01/25/2015 MORENO GANDHI, COURTNEY M Ot V72.84 01/25/2015 MINGO TABATHA S RN CIRCULATING Ot 154.1 01/25/2015 AGUILA, HILAH S RN CIRCULATING Ot 196.6 01/25/2015 AGUILATABATHA Rios S RN CIRCULATING Ot V15.3 01/25/2015 AGUILATABATHA S RN CIRCULATING Ot V44.3 01/25/2015 AGUILATABATHA S RN CIRCULATING Ot V58.69 01/25/2015 ADRIEN HILL N Ot 722.4 01/25/2015 AGUILATABATHA S RN CIRCULATING Ot 154.1 01/25/2015 AGUILA, TABATHA S RN CIRCULATING Ot 196.6 01/25/2015 AGUILA, MODESTOAH S RN CIRCULATING Ot V15.3 01/25/2015 AGUILA, MODESTOAH S RN CIRCULATING Ot V44.3 01/25/2015 AGUILA, TABATHA S RN CIRCULATING Ot V58.69 01/25/2015 AGUILA, TABATHA S RN CIRCULATING Ot 154.1 01/25/2015 AGUILATABATHA S RN CIRCULATING Ot 196.6 01/25/2015 AGUILATABATHA S RN CIRCULATING Ot V15.3 01/25/2015 AGUILATABATHA S RN CIRCULATING Ot V44.3 01/25/2015 AGUILATABATHA S RN CIRCULATING Ot V58.69 01/25/2015 AGUILATABATHA S RN CIRCULATING Ot V58.81 01/25/2015 AGUILATABATHA S RN CIRCULATING Ot V76.12 01/25/2015 MORENO GANDHI, COURTNEY Berrios Ot V72.84 01/25/2015 FLORY, BOBAN N Ot 154.1 01/25/2015 FLORY, DINOAN N Ot 196.6 01/25/2015 FLORY, BOBAN N Ot V15.3 01/25/2015 FLORY, BOBAN N Ot V44.3 01/25/2015 FLORY, BOBAN N Ot V58.69 01/25/2015 FLORY, BOBAN N Ot V58.81 02/09/2015 AGUILATABATHA S RN CIRCULATING Ot 154.1 02/09/2015 AGUILA, HILAH S RN CIRCULATING Ot 196.6 02/09/2015 AGUILATABATHA S RN CIRCULATING Ot V15.3 02/09/2015 AGUILA, TABATHA S RN CIRCULATING Ot V44.3 02/09/2015 AGUILA, MODESTOAH S RN CIRCULATING Ot V58.69 02/09/2015 AGUILA, HILAH S RN CIRCULATING Ot V58.81 02/09/2015 AGUILATABATHA Rios S RN CIRCULATING Ot 154.1 02/09/2015 AGUILATABATHA S RN CIRCULATING Ot 196.6 02/09/2015 AGUILATABATHA Rios S RN CIRCULATING Ot V15.3 02/09/2015 AGUILATABATHA S RN CIRCULATING Ot V44.3 02/09/2015 AGUILATABATHA Rios S RN CIRCULATING Ot V58.69 02/09/2015 AGUILATABATHA S RN CIRCULATING Ot V58.81 02/09/2015 AGUILATABATHA S RN CIRCULATING Ot 154.1 02/09/2015 AGUILATABATHA S RN CIRCULATING Ot 196.6 02/09/2015 AGUILATABATHA S RN CIRCULATING Ot V15.3 02/09/2015 AGUILATABATHA S RN CIRCULATING Ot V44.3 02/09/2015 AGUILATABATHA S RN CIRCULATING Ot V58.69 02/09/2015 AGUILATABATHA S RN CIRCULATING Ot V58.81 02/23/2015 AGUILATABATHA S RN CIRCULATING Ot 154.1 02/23/2015 AGUILATABATHA Rios S RN CIRCULATING Ot 196.6 02/23/2015 AGUILATABATHA Rios S RN CIRCULATING Ot V15.3 02/23/2015 AGUILATABATHA S RN CIRCULATING Ot V44.3 02/23/2015 AGUILATABATHA S RN CIRCULATING Ot V58.69 02/23/2015 AGUILATABATHA S RN CIRCULATING Ot V58.81 03/09/2015 AGUILATABATHA Rios S RN CIRCULATING Ot 154.1 03/09/2015 AGUILATABATHA Rios S RN CIRCULATING Ot 196.6 03/09/2015 AGUILATABATHA Rios S RN CIRCULATING Ot V15.3 03/09/2015 AGUILATABATHA S RN CIRCULATING Ot V44.3 03/09/2015 AGUILATABATHA Rios S RN CIRCULATING Ot V58.69 03/09/2015 AGUILATABATHA S RN CIRCULATING Ot V58.81 03/14/2015 ADRIEN HILL Ot 154.1 MALIGNANT NEOPL RECTUM 03/14/2015 ADRIEN HILL Ot 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 03/14/2015 ADRIEN HILL Ot C20 MALIGNANT NEOPLASM OF RECTUM 03/14/2015 ADRIEN HILL Ot 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 03/14/2015 ADRIEN HILL Ot V15.3 HX OF IRRADIATION 03/14/2015 ADRIEN HILL Ot V44.3 COLOSTOMY STATUS 03/14/2015 ADRIEN HILL Ot V58.69 OTH MED,LT,CURRENT USE 03/14/2015 ADRIEN HILL Ot V58.81 FIT/ADJ VASCULAR CATHETER 03/14/2015 ADRIEN HILL Ot Z45.2 ENCOUNTER FOR ADJUSTMENT AND MANAGEMENT 03/14/2015 ADRIEN HILL Ot 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 03/14/2015 ADRIEN HILL Ot Z92.3 PERSONAL HISTORY OF IRRADIATION 03/14/2015 ADRIEN HILL Ot Z93.3 COLOSTOMY STATUS 04/14/2015 ADRIEN HILL Ot 154.1 04/14/2015 ADRIEN HILL Ot 196.6 04/14/2015 ADRIEN HILL Ot V15.3 04/14/2015 ADRIEN HILL Ot V44.3 04/14/2015 ADRIEN HILL Ot V58.69 04/14/2015 ADRIEN HILL Ot V58.81 04/15/2015 Ot V72.84 04/15/2015 Ot 627.1 04/15/2015 Ot 154.1 04/15/2015 Ot 154.1 04/15/2015 Ot 154.1 04/15/2015 Ot 305.1 04/15/2015 TABATHA AGUILA RN CIRCULATING Ot 154.1 04/15/2015 TABATHA AGUILA RN CIRCULATING Ot 692.82 04/15/2015 TABATHA AGUILA RN CIRCULATING Ot 782.2 04/15/2015 TABATHA AGUILA RN CIRCULATING Ot V15.3 04/15/2015 TABATHA AGUILA RN CIRCULATING Ot V15.82 04/15/2015 TABATHA AGUILA RN CIRCULATING Ot V58.69 04/15/2015 TABATHA AGUILA RN CIRCULATING Ot V87.41 04/15/2015 MORENO GANDHI, COURTNEY Berrios Ot 154.1 04/15/2015 MORENO GANDHI, COURTNEY Berrios Ot V72.84 04/15/2015 MORENO GANDHI, COURTNEY Berrios Ot 154.1 04/15/2015 MORENO GANDHI, COURTNEY M Ot V72.83 04/15/2015 MORENO GANDHI, COURTNEY M Ot V74.8 04/15/2015 AGUILA, TABATHA S RN CIRCULATING Ot 154.1 04/15/2015 AGUILA MODESTOAH S RN CIRCULATING Ot V15.3 04/15/2015 AGUILA HILAH S RN CIRCULATING Ot V15.82 04/15/2015 AGUILA HILAH S RN CIRCULATING Ot V58.69 04/15/2015 AGUILA HILAH S RN CIRCULATING Ot V87.41 04/15/2015 Ot 154.1 04/15/2015 Ot V58.0 04/15/2015 MORENO GANDHI, COURTNEY M Ot 154.1 04/15/2015 MORENO GANDHI, COURTNEY M Ot V72.84 04/15/2015 MORENO GANDHI, COURTNEY M Ot V74.8 04/15/2015 MINGO TABATHA S RN CIRCULATING Ot 154.1 04/15/2015 MINGO MODESTOAH S RN CIRCULATING Ot 196.6 04/15/2015 AGUILA MODESTOAH S RN CIRCULATING Ot 338.18 04/15/2015 AGUILA MODESTOAH S RN CIRCULATING Ot V15.3 04/15/2015 AGUILA TABATHA S RN CIRCULATING Ot V44.3 04/15/2015 MINGO TABATHA S RN CIRCULATING Ot V58.69 04/15/2015 MINGO TABATHA S RN CIRCULATING Ot V87.41 04/15/2015 FLORY BOBAN N Ot 154.1 04/15/2015 MORENO GANDHI, COURTNEY M Ot 154.1 04/15/2015 MORENO GANDHI, COURTNEY M Ot V72.84 04/15/2015 FLORY, BOBAN N Ot 154.1 04/15/2015 FLORY, BOBAN N Ot 154.1 04/15/2015 FLORY BOBAN N Ot V58.69 04/15/2015 AGUILAMODESTOAH S RN CIRCULATING Ot 154.1 04/15/2015 AGUILAMODESTOAH S RN CIRCULATING Ot 250.00 04/15/2015 AGUILA HILAH S RN CIRCULATING Ot 300.00 04/15/2015 AGUILAMODESTOAH S RN CIRCULATING Ot 788.1 04/15/2015 TABATHA AGUILA S RN CIRCULATING Ot 788.41 04/15/2015 AGUILA HILAH S RN CIRCULATING Ot V58.69 04/15/2015 ADRIEN HILL N Ot 154.1 04/15/2015 ADRIEN HILL N Ot V58.69 04/15/2015 AGUILATABATHA Rios S RN CIRCULATING Ot 154.1 04/15/2015 AGUILATABATHA Rios S RN CIRCULATING Ot 250.00 04/15/2015 AGUILATABATHA S RN CIRCULATING Ot V58.69 04/15/2015 AGUILATABATHA S RN CIRCULATING Ot 154.1 04/15/2015 AGUILATABATHA S RN CIRCULATING Ot 196.6 04/15/2015 AGUILATABATHA S RN CIRCULATING Ot 305.1 04/15/2015 AGUILATABATHA S RN CIRCULATING Ot V15.3 04/15/2015 AGUILA, TABATHA S RN CIRCULATING Ot V44.3 04/15/2015 AGUILATABAHTA S RN CIRCULATING Ot V58.69 04/15/2015 ADRIEN HILL N Ot 154.1 04/15/2015 MORENO GANDHI, COURTNEY M Ot V72.84 04/15/2015 AGUILATABATHA S RN CIRCULATING Ot 154.1 04/15/2015 AGUILATABATHA S RN CIRCULATING Ot 196.6 04/15/2015 AGUILATABATHA S RN CIRCULATING Ot V15.3 04/15/2015 AGUILA TABATHA S RN CIRCULATING Ot V44.3 04/15/2015 AGUILA, TABATHA S RN CIRCULATING Ot V58.69 04/15/2015 ADRIEN HILL N Ot 722.4 04/15/2015 AGUILATABATHA S RN CIRCULATING Ot 154.1 04/15/2015 AGUILA TABATHA S RN CIRCULATING Ot 196.6 04/15/2015 AGUILA TABATHA S RN CIRCULATING Ot V15.3 04/15/2015 AGUILA TABATHA S RN CIRCULATING Ot V44.3 04/15/2015 AGUILA TABATHA S RN CIRCULATING Ot V58.69 04/15/2015 AGUILA, MODESTOAH S RN CIRCULATING Ot 154.1 04/15/2015 AGUILA, MODESTOAH S RN CIRCULATING Ot 196.6 04/15/2015 AGUILA TABATHA S RN CIRCULATING Ot V15.3 04/15/2015 AGUILA TABATHA S RN CIRCULATING Ot V44.3 04/15/2015 AGUILA HILAH S RN CIRCULATING Ot V58.69 04/15/2015 AGUILATABATHA S RN CIRCULATING Ot V58.81 04/15/2015 AGUILA, TABATHA S RN CIRCULATING Ot V76.12 04/15/2015 MORENO GANDHI, COURTNEY Berrios Ot V72.84 04/15/2015 AGUILA, TABATHA S RN CIRCULATING Ot 154.1 04/15/2015 AGUILA, MODESTOAH S RN CIRCULATING Ot 196.6 04/15/2015 AGUILA, MODESTOAH S RN CIRCULATING Ot V15.3 04/15/2015 AGUILA, MODESTOAH S RN CIRCULATING Ot V44.3 04/15/2015 AGUILA, TABATHA S RN CIRCULATING Ot V58.69 04/15/2015 AGUILA, TABATHA S RN CIRCULATING Ot V58.81 04/15/2015 FLORY, BOBAN N Ot 154.1 04/15/2015 FLORY, BOBAN N Ot 196.6 04/15/2015 FLORY, BOBAN N Ot V15.3 04/15/2015 FLORY, BOBAN N Ot V44.3 04/15/2015 FLORY, BOBAN N Ot V58.69 04/15/2015 FLORY, BOBAN N Ot V58.81 05/24/2015 LFORY, BOBAN N Ot 154.1 05/24/2015 FLORY, BOBAN N Ot 196.6 05/24/2015 FLORY, BOBAN N Ot V15.3 05/24/2015 FLORY, BOBAN N Ot V44.3 05/24/2015 FLORY, BOBAN N Ot V58.69 05/24/2015 FLORY, BOBAN N Ot V58.81 06/15/2015 FLORY, BOBAN N Ot C20 06/15/2015 FLORY, BOBAN N Ot C77.5 06/15/2015 FLORY, BOBAN N Ot Z79.899 06/15/2015 FLORY, BOBAN N Ot Z92.3 06/15/2015 FLORY, BOBAN N Ot Z93.3 06/30/2015 FLORY, BOBAN N Ot C20 06/30/2015 FLORY, BOBAN N Ot C77.5 06/30/2015 FLORY, BOBAN N Ot Z79.899 06/30/2015 FLORY, BOBAN N Ot Z92.3 06/30/2015 FLORY, BOBAN N Ot Z93.3 07/20/2015 ADRIEN HILL Ot C20 MALIGNANT NEOPLASM OF RECTUM 07/20/2015 ADRIEN HILL Ot 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 07/20/2015 ADRIEN HILL Ot 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 07/20/2015 ADRIEN HILL Ot Z92.3 PERSONAL HISTORY OF IRRADIATION 07/20/2015 ADRIEN HILL Ot Z93.3 COLOSTOMY STATUS 07/29/2015 TABATHA AGUILA S RN CIRCULATING Ot C20 07/29/2015 TABATHA AGUILA S RN CIRCULATING Ot C77.5 07/29/2015 AGUILATABATHA Rios S RN CIRCULATING Ot Z79.899 07/29/2015 TABATHA AGUILA S RN CIRCULATING Ot Z92.3 07/29/2015 TABATHA AGUILA S RN CIRCULATING Ot Z93.3 08/04/2015 ADRIEN HILL N Ot C20 08/04/2015 ADRIEN HILL Ot C77.5 08/04/2015 ADRIEN HILL N Ot Z79.899 08/04/2015 ADRIEN HILL N Ot Z92.3 08/04/2015 ADRIEN HILL N Ot Z93.3 08/11/2015 Ot V72.84 08/11/2015 Ot 627.1 08/11/2015 Ot 154.1 08/11/2015 Ot 154.1 08/11/2015 Ot 154.1 08/11/2015 Ot 305.1 08/11/2015 TABATHA AGUILA S RN CIRCULATING Ot 154.1 08/11/2015 TABATHA AGUILA S RN CIRCULATING Ot 692.82 08/11/2015 TABATHA AGUILA S RN CIRCULATING Ot 782.2 08/11/2015 TABATHA AGUILA S RN CIRCULATING Ot V15.3 08/11/2015 TABATHA AGUILA S RN CIRCULATING Ot V15.82 08/11/2015 TABATHA AGUILA S RN CIRCULATING Ot V58.69 08/11/2015 TABATHA AGUILA S RN CIRCULATING Ot V87.41 08/11/2015 MORENO GANDHI, COURTNEY Berrios Ot 154.1 08/11/2015 MORENO GANDHI, COURTNEY Berrios Ot V72.84 08/11/2015 MORENO GANDHI, COURTNEY M Ot 154.1 08/11/2015 MORENO GANDHI, COURTNEY M Ot V72.83 08/11/2015 MORENO GANDHI, COURTNEY M Ot V74.8 08/11/2015 MINGO TABATHA S RN CIRCULATING Ot 154.1 08/11/2015 AGUILA HILAH S RN CIRCULATING Ot V15.3 08/11/2015 AGUILA HILAH S RN CIRCULATING Ot V15.82 08/11/2015 AGUILA HILAH S RN CIRCULATING Ot V58.69 08/11/2015 MINGO HILAH S RN CIRCULATING Ot V87.41 08/11/2015 Ot 154.1 08/11/2015 Ot V58.0 08/11/2015 MORENO GANDHI, COURTNEY M Ot 154.1 08/11/2015 MORENO GANDHI, COURTNEY M Ot V72.84 08/11/2015 MORENO GANDHI, COURTNEY M Ot V74.8 08/11/2015 MINGO HILAH S RN CIRCULATING Ot 154.1 08/11/2015 MINGO HILAH S RN CIRCULATING Ot 196.6 08/11/2015 MINGO HILAH S RN CIRCULATING Ot 338.18 08/11/2015 AGUILA HILAH S RN CIRCULATING Ot V15.3 08/11/2015 MINGO HILAH S RN CIRCULATING Ot V44.3 08/11/2015 MINGO HILAH S RN CIRCULATING Ot V58.69 08/11/2015 MINGO HILAH S RN CIRCULATING Ot V87.41 08/11/2015 ADRIEN HILL N Ot 154.1 08/11/2015 MORENO GANDHI, COURTNEY M Ot 154.1 08/11/2015 MORENO GANDHI, COURTNEY M Ot V72.84 08/11/2015 FLORY BOBAN N Ot 154.1 08/11/2015 FLORY, BOBAN N Ot 154.1 08/11/2015 FLORYADRIEN GONZALES N Ot V58.69 08/11/2015 TABATHA AGUILA S RN CIRCULATING Ot 154.1 08/11/2015 MINGO HILAH S RN CIRCULATING Ot 250.00 08/11/2015 MINGO HILAH S RN CIRCULATING Ot 300.00 08/11/2015 TABATHA AGUILA S RN CIRCULATING Ot 788.1 08/11/2015 MINGO HILAH S RN CIRCULATING Ot 788.41 08/11/2015 TABATHA AGUILA S RN CIRCULATING Ot V58.69 08/11/2015 ADRIEN HILL N Ot 154.1 08/11/2015 ADRIEN HILL N Ot V58.69 08/11/2015 TABATHA AGUILA S RN CIRCULATING Ot 154.1 08/11/2015 AGUILATABATHA Rios S RN CIRCULATING Ot 250.00 08/11/2015 AGUILATABATHA S RN CIRCULATING Ot V58.69 08/11/2015 AGUILATABATHA S RN CIRCULATING Ot 154.1 08/11/2015 AGUILATABATHA S RN CIRCULATING Ot 196.6 08/11/2015 AGUILATABATHA S RN CIRCULATING Ot 305.1 08/11/2015 AGUILATABATHA S RN CIRCULATING Ot V15.3 08/11/2015 AGUILATABATHA S RN CIRCULATING Ot V44.3 08/11/2015 AGUILATABATHA S RN CIRCULATING Ot V58.69 08/11/2015 ADRIEN HILL N Ot 154.1 08/11/2015 MORENO GANDHI, COURTNEY M Ot V72.84 08/11/2015 AGUILATABATHA Rios S RN CIRCULATING Ot 154.1 08/11/2015 AGUILATABATHA S RN CIRCULATING Ot 196.6 08/11/2015 AGUILATABATHA S RN CIRCULATING Ot V15.3 08/11/2015 AGUILATABATHA S RN CIRCULATING Ot V44.3 08/11/2015 AGUILATABATHA Rios S RN CIRCULATING Ot V58.69 08/11/2015 ADRIEN HILL N Ot 722.4 08/11/2015 AGUILATABATHA S RN CIRCULATING Ot 154.1 08/11/2015 AGUILATABATHA S RN CIRCULATING Ot 196.6 08/11/2015 AGUILATABATHA S RN CIRCULATING Ot V15.3 08/11/2015 AGUILA, TABATHA S RN CIRCULATING Ot V44.3 08/11/2015 AGUILA, MODESTOAH S RN CIRCULATING Ot V58.69 08/11/2015 AGUILA, MODESTOAH S RN CIRCULATING Ot 154.1 08/11/2015 AGUILA, MODESTOAH S RN CIRCULATING Ot 196.6 08/11/2015 AGUILA, TABATHA S RN CIRCULATING Ot V15.3 08/11/2015 AGUILA, MODESTOAH S RN CIRCULATING Ot V44.3 08/11/2015 AGUILATABATHA Rios S RN CIRCULATING Ot V58.69 08/11/2015 AGUILATABATHA S RN CIRCULATING Ot V58.81 08/11/2015 AGUILATABATHA Rios S RN CIRCULATING Ot V76.12 08/11/2015 COURTNEY MAYER MD Ot V72.84 08/11/2015 AGUILATABATHA Rios S RN CIRCULATING Ot 154.1 08/11/2015 AGUILATABATHA S RN CIRCULATING Ot 196.6 08/11/2015 AGUILATABATHA Rios S RN CIRCULATING Ot V15.3 08/11/2015 AGUILATABATHA Rios S RN CIRCULATING Ot V44.3 08/11/2015 AGUILATABATHA Rios S RN CIRCULATING Ot V58.69 08/11/2015 AGUILATABATHA Rios S RN CIRCULATING Ot V58.81 08/11/2015 AGUILATABATHA Rios S RN CIRCULATING Ot C20 08/11/2015 AGUILATABATHA Rios S RN CIRCULATING Ot C77.5 08/11/2015 AGUILATABATHA Rios S RN CIRCULATING Ot Z79.899 08/11/2015 AGUILATABATHA Rios S RN CIRCULATING Ot Z92.3 08/11/2015 TABATHA AGUILA S RN CIRCULATING Ot Z93.3 08/11/2015 FLORY, BOBRADHA N Ot C20 08/11/2015 FLORY, ADRIEN N Ot C77.5 08/11/2015 FLORY BOBAN N Ot Z79.899 08/11/2015 FLORY, BOBAN N Ot Z92.3 08/11/2015 FLORY, ADRIEN N Ot Z93.3 08/16/2015 AGUILATABATHA Rios S RN CIRCULATING Ot C20 08/16/2015 AGUILATABATHA Rios S RN CIRCULATING Ot C77.5 08/16/2015 AGUILATABATHA Rios S RN CIRCULATING Ot Z79.899 08/16/2015 AGUILATABATHA S RN CIRCULATING Ot Z92.3 08/16/2015 AGUILATABATHA Rios S RN CIRCULATING Ot Z93.3 08/26/2015 Ot V72.84 08/26/2015 Ot 627.1 08/26/2015 Ot 154.1 08/26/2015 Ot 154.1 08/26/2015 Ot 154.1 08/26/2015 Ot 305.1 08/26/2015 AGUILATABATHA Rios S RN CIRCULATING Ot 154.1 08/26/2015 AGUILATABATHA S RN CIRCULATING Ot 692.82 08/26/2015 AGUILATABATHA S RN CIRCULATING Ot 782.2 08/26/2015 AGUILA, MODESTOAH S RN CIRCULATING Ot V15.3 08/26/2015 AGUILA, MODESTOAH S RN CIRCULATING Ot V15.82 08/26/2015 AGUILA, TABATHA S RN CIRCULATING Ot V58.69 08/26/2015 AGUILA, HILAH S RN CIRCULATING Ot V87.41 08/26/2015 MORENO GANDHI, COURTNEY M Ot 154.1 08/26/2015 MORENO GANDHI, COURTNEY M Ot V72.84 08/26/2015 MORENO GANDHI, COURTNEY M Ot 154.1 08/26/2015 MORENO GANDHI, COURTNEY M Ot V72.83 08/26/2015 MORENO GANDHI, COURTNEY M Ot V74.8 08/26/2015 AGUILA, TABATHA S RN CIRCULATING Ot 154.1 08/26/2015 AGUILA, TABATHA S RN CIRCULATING Ot V15.3 08/26/2015 AGUILA, TABATHA S RN CIRCULATING Ot V15.82 08/26/2015 AGUILATABATHA S RN CIRCULATING Ot V58.69 08/26/2015 AGUILATABATHA S RN CIRCULATING Ot V87.41 08/26/2015 Ot 154.1 08/26/2015 Ot V58.0 08/26/2015 MORENO GANDHI, COURTNEY M Ot 154.1 08/26/2015 MORENO GANDHI, COURTNEY M Ot V72.84 08/26/2015 MORENO GANDHI, COURTNEY M Ot V74.8 08/26/2015 AGUILATABATHA S RN CIRCULATING Ot 154.1 08/26/2015 AGUILA, MODESTOAH S RN CIRCULATING Ot 196.6 08/26/2015 AGUILA, HILAH S RN CIRCULATING Ot 338.18 08/26/2015 AGUILA, HILAH S RN CIRCULATING Ot V15.3 08/26/2015 AGUILA, HILAH S RN CIRCULATING Ot V44.3 08/26/2015 AGUILA, HILAH S RN CIRCULATING Ot V58.69 08/26/2015 AGUILA, HILAH S RN CIRCULATING Ot V87.41 08/26/2015 ADRIEN HILL Ot 154.1 08/26/2015 MORENO GANDHI, COURTNEY M Ot 154.1 08/26/2015 MORENO GANDHI, COURTNEY M Ot V72.84 08/26/2015 FLORYADRIEN GONZALES N Ot 154.1 08/26/2015 ADRIEN HILL N Ot 154.1 08/26/2015 ADRIEN HILL N Ot V58.69 08/26/2015 AGUILAMODESTOAH S RN CIRCULATING Ot 154.1 08/26/2015 AGUILA, HILAH S RN CIRCULATING Ot 250.00 08/26/2015 AGUILA, HILAH S RN CIRCULATING Ot 300.00 08/26/2015 AGUILA, HILAH S RN CIRCULATING Ot 788.1 08/26/2015 AGUILA, HILAH S RN CIRCULATING Ot 788.41 08/26/2015 AGUILA, HILAH S RN CIRCULATING Ot V58.69 08/26/2015 ADRIEN HILL N Ot 154.1 08/26/2015 ADRIEN HILL N Ot V58.69 08/26/2015 AGUILA, HILAH S RN CIRCULATING Ot 154.1 08/26/2015 AGUILA, HILAH S RN CIRCULATING Ot 250.00 08/26/2015 AGUILA, HILAH S RN CIRCULATING Ot V58.69 08/26/2015 AGUILA, HILAH S RN CIRCULATING Ot 154.1 08/26/2015 AGUILA, HILAH S RN CIRCULATING Ot 196.6 08/26/2015 AGUILA, HILAH S RN CIRCULATING Ot 305.1 08/26/2015 AGUILA, HILAH S RN CIRCULATING Ot V15.3 08/26/2015 AGUILA, HILAH S RN CIRCULATING Ot V44.3 08/26/2015 AGUILA, HILAH S RN CIRCULATING Ot V58.69 08/26/2015 ADRIEN HILL N Ot 154.1 08/26/2015 MORENO GANDHI, COURTNEY M Ot V72.84 08/26/2015 AGUILA, HILAH S RN CIRCULATING Ot 154.1 08/26/2015 AGUILA, HILAH S RN CIRCULATING Ot 196.6 08/26/2015 AGUILA, HILAH S RN CIRCULATING Ot V15.3 08/26/2015 AGUILA, HILAH S RN CIRCULATING Ot V44.3 08/26/2015 AGUILA HILAH S RN CIRCULATING Ot V58.69 08/26/2015 FLORYADRIEN N Ot 722.4 08/26/2015 AGUILATABATHA S RN CIRCULATING Ot 154.1 08/26/2015 AGUILA, TABATHA S RN CIRCULATING Ot 196.6 08/26/2015 AGUILA, MODESTOAH S RN CIRCULATING Ot V15.3 08/26/2015 AGUILA, MODESTOAH S RN CIRCULATING Ot V44.3 08/26/2015 AGUILA, TABATHA S RN CIRCULATING Ot V58.69 08/26/2015 AGUILA, TABATHA S RN CIRCULATING Ot 154.1 08/26/2015 AGUILA, TABATHA S RN CIRCULATING Ot 196.6 08/26/2015 AGUILA, TABATHA S RN CIRCULATING Ot V15.3 08/26/2015 AGUILA, TABATHA S RN CIRCULATING Ot V44.3 08/26/2015 AGUILA, TABATHA S RN CIRCULATING Ot V58.69 08/26/2015 AGUILA, TABATHA S RN CIRCULATING Ot V58.81 08/26/2015 AGUILA, TABATHA S RN CIRCULATING Ot V76.12 08/26/2015 MORENO GANDHI, COURTNEY Berrios Ot V72.84 08/26/2015 AGUILA, TABATHA S RN CIRCULATING Ot 154.1 08/26/2015 AGUILA, TABATHA S RN CIRCULATING Ot 196.6 08/26/2015 AGUILA, TABATHA S RN CIRCULATING Ot V15.3 08/26/2015 AGUILA, TABATHA S RN CIRCULATING Ot V44.3 08/26/2015 AGUILA, TABATHA S RN CIRCULATING Ot V58.69 08/26/2015 AGUILA, TABATHA S RN CIRCULATING Ot V58.81 08/26/2015 AGUILA, TABATHA S RN CIRCULATING Ot C20 08/26/2015 AGUILA, TABATHA S RN CIRCULATING Ot C77.5 08/26/2015 AGUILA, TABATHA S RN CIRCULATING Ot Z79.899 08/26/2015 AGUILA, HILJONATHON S RN CIRCULATING Ot Z92.3 08/26/2015 AGUILA, HILAH S RN CIRCULATING Ot Z93.3 08/26/2015 AGUILA, MODESTOAH S RN CIRCULATING Ot Z12.31 08/26/2015 ADRIEN HILL Ot C20 08/26/2015 ADRIEN HILL Ot C77.5 08/26/2015 ADRIEN HILL Ot Z79.899 08/26/2015 ADRIEN HILL Ot Z92.3 08/26/2015 ADRIEN HILL N Ot Z93.3 08/26/2015 Ot V72.84 08/26/2015 Ot 627.1 08/26/2015 Ot 154.1 08/26/2015 Ot 154.1 08/26/2015 Ot 154.1 08/26/2015 Ot 305.1 08/26/2015 AGUILA HILAH S RN CIRCULATING Ot 154.1 08/26/2015 AGUILA HILAH S RN CIRCULATING Ot 692.82 08/26/2015 AGUILA, HILAH S RN CIRCULATING Ot 782.2 08/26/2015 AGUILA, HILAH S RN CIRCULATING Ot V15.3 08/26/2015 AGUILA, HILAH S RN CIRCULATING Ot V15.82 08/26/2015 AGUILA HILAH S RN CIRCULATING Ot V58.69 08/26/2015 MINGO HILAH S RN CIRCULATING Ot V87.41 08/26/2015 MORENO GANDHI, COURTNEY M Ot 154.1 08/26/2015 MORENO GANDHI, COURTNEY M Ot V72.84 08/26/2015 MORENO GANDHI, COURTNEY M Ot 154.1 08/26/2015 MORENO GANDHI, COURTNEY M Ot V72.83 08/26/2015 MORENO GANDHI, COURTNEY M Ot V74.8 08/26/2015 MINGO HILAH S RN CIRCULATING Ot 154.1 08/26/2015 AGUILA HILAH S RN CIRCULATING Ot V15.3 08/26/2015 AGUILA HILAH S RN CIRCULATING Ot V15.82 08/26/2015 AGUILA HILAH S RN CIRCULATING Ot V58.69 08/26/2015 AGUILA, HILAH S RN CIRCULATING Ot V87.41 08/26/2015 Ot 154.1 08/26/2015 Ot V58.0 08/26/2015 MORENO GANDHI, COURTNEY M Ot 154.1 08/26/2015 MORENO GANDHI, COURTNEY M Ot V72.84 08/26/2015 MORENO GANDHI, COURTNEY M Ot V74.8 08/26/2015 AGUILA, HILAH S RN CIRCULATING Ot 154.1 08/26/2015 AGUILA HILAH S RN CIRCULATING Ot 196.6 08/26/2015 AGUILA HILAH S RN CIRCULATING Ot 338.18 08/26/2015 AGUILATABATHA Rios S RN CIRCULATING Ot V15.3 08/26/2015 AGUILATABATHA S RN CIRCULATING Ot V44.3 08/26/2015 AGUILA, HILAH S RN CIRCULATING Ot V58.69 08/26/2015 AGUILATABATHA Rios S RN CIRCULATING Ot V87.41 08/26/2015 ADRIEN HILL N Ot 154.1 08/26/2015 MORENO GANDHI, COURTNEY M Ot 154.1 08/26/2015 MORENO GANDHI, COURTNEY M Ot V72.84 08/26/2015 FLORY, BOBAN N Ot 154.1 08/26/2015 DINO HILLAN N Ot 154.1 08/26/2015 DINO HILLAN N Ot V58.69 08/26/2015 AGUILATABATHA S RN CIRCULATING Ot 154.1 08/26/2015 AGUILATABATHA S RN CIRCULATING Ot 250.00 08/26/2015 AGUILATABATHA S RN CIRCULATING Ot 300.00 08/26/2015 AGUILATABATHA S RN CIRCULATING Ot 788.1 08/26/2015 AGUILATABATHA S RN CIRCULATING Ot 788.41 08/26/2015 AGUILATABATHA S RN CIRCULATING Ot V58.69 08/26/2015 ADRIEN HILL N Ot 154.1 08/26/2015 DINO HILLAN N Ot V58.69 08/26/2015 AGUILATABATHA S RN CIRCULATING Ot 154.1 08/26/2015 AGUILATABATHA S RN CIRCULATING Ot 250.00 08/26/2015 AGUILATABATHA S RN CIRCULATING Ot V58.69 08/26/2015 AGUILA, TABATHA S RN CIRCULATING Ot 154.1 08/26/2015 AGUILA, HILAH S RN CIRCULATING Ot 196.6 08/26/2015 AGUILA, MODESTOAH S RN CIRCULATING Ot 305.1 08/26/2015 AGUILA, TABATHA S RN CIRCULATING Ot V15.3 08/26/2015 AGUILA, HILAH S RN CIRCULATING Ot V44.3 08/26/2015 AGUILA, HILAH S RN CIRCULATING Ot V58.69 08/26/2015 FLORYADRIEN GONZALES N Ot 154.1 08/26/2015 MORENO GANDHI, COURTNEY Berrios Ot V72.84 08/26/2015 AGUILA TABATHA S RN CIRCULATING Ot 154.1 08/26/2015 AGUILATABATHA Rios S RN CIRCULATING Ot 196.6 08/26/2015 AGUILATABATHA S RN CIRCULATING Ot V15.3 08/26/2015 AGUILATABATHA S RN CIRCULATING Ot V44.3 08/26/2015 AGUILATABATHA S RN CIRCULATING Ot V58.69 08/26/2015 ADRIEN HILL Ot 722.4 08/26/2015 AGUILA TABATHA S RN CIRCULATING Ot 154.1 08/26/2015 AGUILATABATHA S RN CIRCULATING Ot 196.6 08/26/2015 AGUILATABATHA S RN CIRCULATING Ot V15.3 08/26/2015 AGUILAMODESTO S RN CIRCULATING Ot V44.3 08/26/2015 AGUILATABATHA S RN CIRCULATING Ot V58.69 08/26/2015 AGUILATABATHA S RN CIRCULATING Ot 154.1 08/26/2015 AGUILA TABATHA S RN CIRCULATING Ot 196.6 08/26/2015 MINGO TABATHA S RN CIRCULATING Ot V15.3 08/26/2015 AGUILATABATHA S RN CIRCULATING Ot V44.3 08/26/2015 AGUILATABATHA S RN CIRCULATING Ot V58.69 08/26/2015 AGUILATABATHA S RN CIRCULATING Ot V58.81 08/26/2015 AGUILATABATHA S RN CIRCULATING Ot V76.12 08/26/2015 MORENO GANDHI, COURTNEY M Ot V72.84 08/26/2015 AGUILATABATHA S RN CIRCULATING Ot 154.1 08/26/2015 AGUILATABATHA S RN CIRCULATING Ot 196.6 08/26/2015 AGUILATABATHA Rios S RN CIRCULATING Ot V15.3 08/26/2015 AGUILATABATHA S RN CIRCULATING Ot V44.3 08/26/2015 AGUILATABATHA S RN CIRCULATING Ot V58.69 08/26/2015 AGUILA TABATHA S RN CIRCULATING Ot V58.81 08/26/2015 MINGO TABATHA S RN CIRCULATING Ot C20 08/26/2015 AGUILATABATHA S RN CIRCULATING Ot C77.5 08/26/2015 MINGO TABATHA S RN CIRCULATING Ot Z79.899 08/26/2015 AGUILA TABATHA S RN CIRCULATING Ot Z92.3 08/26/2015 AGUILATABATHA Rios S RN CIRCULATING Ot Z93.3 08/26/2015 AGUILATABATHA Rios S RN CIRCULATING Ot Z12.31 08/26/2015 FLORY, BOBAN N Ot C20 08/26/2015 FLORY, BOBAN N Ot C77.5 08/26/2015 FLORY, BOBAN N Ot Z79.899 08/26/2015 FLORY, BOBAN N Ot Z92.3 08/26/2015 FLORY, BOBAN N Ot Z93.3 09/03/2015 AGUILATABATHA S RN CIRCULATING Ot C20 09/03/2015 AGUILA, TABATHA S RN CIRCULATING Ot C77.5 09/03/2015 AGUILA, TABATHA S RN CIRCULATING Ot Z79.899 09/03/2015 AGUILA, TABATHA S RN CIRCULATING Ot Z92.3 09/03/2015 AGUILATABATHA S RN CIRCULATING Ot Z93.3 09/08/2015 AGUILATABATHA S RN CIRCULATING Ot Z12.31 09/14/2015 FLORY, BOBAN N Ot C20 09/14/2015 FLORY, BOBAN N Ot C77.5 09/14/2015 FLORY, BOBAN N Ot Z79.899 09/14/2015 FLORY, BOBAN N Ot Z92.3 09/14/2015 FLORY, BOBAN N Ot Z93.3 09/21/2015 FLORY, BOBAN N Ot C20 09/21/2015 FLORY, BOBAN N Ot C77.5 09/21/2015 FLORY, BOBAN N Ot Z79.899 09/21/2015 FLORY, BOBAN N Ot Z92.3 09/21/2015 FLORY, BOBAN N Ot Z93.3 09/29/2015 Ot V72.84 09/29/2015 Ot 627.1 09/29/2015 Ot 154.1 09/29/2015 Ot 154.1 09/29/2015 Ot 154.1 09/29/2015 Ot 305.1 09/29/2015 AGUILATABATHA Rios S RN CIRCULATING Ot 154.1 09/29/2015 MINGO TABATHA S RN CIRCULATING Ot 692.82 09/29/2015 MINGO TABATHA S RN CIRCULATING Ot 782.2 09/29/2015 MINGO TABATHA S RN CIRCULATING Ot V15.3 09/29/2015 MINGO MODESTOAH S RN CIRCULATING Ot V15.82 09/29/2015 AGUILA, HILAH S RN CIRCULATING Ot V58.69 09/29/2015 AGUILA, HILAH S RN CIRCULATING Ot V87.41 09/29/2015 MORENO GANDHI, COURTNEY M Ot 154.1 09/29/2015 MORENO GANDHI, COURTNEY M Ot V72.84 09/29/2015 MORENO GANDHI, COURTNEY M Ot 154.1 09/29/2015 MORENO GANDHI, COURTNEY M Ot V72.83 09/29/2015 MORENO GANDHI, COURTNEY M Ot V74.8 09/29/2015 AGUILA, HILAH S RN CIRCULATING Ot 154.1 09/29/2015 AGUILA, HILAH S RN CIRCULATING Ot V15.3 09/29/2015 AGUILA, HILAH S RN CIRCULATING Ot V15.82 09/29/2015 AGUILA TABATHA S RN CIRCULATING Ot V58.69 09/29/2015 AGUILA TABATHA S RN CIRCULATING Ot V87.41 09/29/2015 Ot 154.1 09/29/2015 Ot V58.0 09/29/2015 MORENO GANDHI, COURTNEY M Ot 154.1 09/29/2015 MORENO GANDHI, COURTNEY M Ot V72.84 09/29/2015 MORENO GANDHI, COURTNEY M Ot V74.8 09/29/2015 AGUILA, MODESTOAH S RN CIRCULATING Ot 154.1 09/29/2015 AGUILA TABATHA S RN CIRCULATING Ot 196.6 09/29/2015 AGUILA HILAH S RN CIRCULATING Ot 338.18 09/29/2015 AGUILA HILAH S RN CIRCULATING Ot V15.3 09/29/2015 AGUILA, HILAH S RN CIRCULATING Ot V44.3 09/29/2015 AGUILA HILAH S RN CIRCULATING Ot V58.69 09/29/2015 AGUILA HILAH S RN CIRCULATING Ot V87.41 09/29/2015 ADRIEN HILL N Ot 154.1 09/29/2015 MORENO GANDHI, COURTNEY M Ot 154.1 09/29/2015 MORENO GANDHI, COURTNEY M Ot V72.84 09/29/2015 ADRIEN HILL N Ot 154.1 09/29/2015 ADRIEN HILL Ot 154.1 09/29/2015 ADRIEN HILL Ot V58.69 09/29/2015 AGIULATABATHA Rios S RN CIRCULATING Ot 154.1 09/29/2015 AGUILATABATHA Rios S RN CIRCULATING Ot 250.00 09/29/2015 TABATHA AGUILA S RN CIRCULATING Ot 300.00 09/29/2015 AGUILATABATHA Rios S RN CIRCULATING Ot 788.1 09/29/2015 AGUILATABAHTA S RN CIRCULATING Ot 788.41 09/29/2015 AGUILATABATHA Rios S RN CIRCULATING Ot V58.69 09/29/2015 ADRIEN HILL N Ot 154.1 09/29/2015 ADRIEN HILL N Ot V58.69 09/29/2015 AGUILATABATHA Rios S RN CIRCULATING Ot 154.1 09/29/2015 TABATHA AGUILA S RN CIRCULATING Ot 250.00 09/29/2015 AGUILATABATHA S RN CIRCULATING Ot V58.69 09/29/2015 AGUILATABATHA S RN CIRCULATING Ot 154.1 09/29/2015 AGUILATABATHA S RN CIRCULATING Ot 196.6 09/29/2015 AGUILATABATHA Rios S RN CIRCULATING Ot 305.1 09/29/2015 AGUILATABATHA Rios S RN CIRCULATING Ot V15.3 09/29/2015 AGUILATABATHA Rios S RN CIRCULATING Ot V44.3 09/29/2015 AGUILATABATHA Rios S RN CIRCULATING Ot V58.69 09/29/2015 ADRIEN HILL N Ot 154.1 09/29/2015 MORENO GANDHI, COURTNEY M Ot V72.84 09/29/2015 AGUILATABATHA Rios S RN CIRCULATING Ot 154.1 09/29/2015 AGUILATABATHA S RN CIRCULATING Ot 196.6 09/29/2015 AGUILATABATHA S RN CIRCULATING Ot V15.3 09/29/2015 AGUILATABATHA S RN CIRCULATING Ot V44.3 09/29/2015 AGUILATABATHA S RN CIRCULATING Ot V58.69 09/29/2015 ADRIEN HILL N Ot 722.4 09/29/2015 AGUILATABATHA S RN CIRCULATING Ot 154.1 09/29/2015 AGUILA, TABATHA S RN CIRCULATING Ot 196.6 09/29/2015 AGUILA, TABATHA S RN CIRCULATING Ot V15.3 09/29/2015 TABATHA AGUILA S RN CIRCULATING Ot V44.3 09/29/2015 TABATHA AGUILA S RN CIRCULATING Ot V58.69 09/29/2015 AGUILATABATHA Rios S RN CIRCULATING Ot 154.1 09/29/2015 AGUILATABATHA S RN CIRCULATING Ot 196.6 09/29/2015 AGUILATABATHA S RN CIRCULATING Ot V15.3 09/29/2015 AGUILATABATHA S RN CIRCULATING Ot V44.3 09/29/2015 AGUILATABATHA S RN CIRCULATING Ot V58.69 09/29/2015 AGUILATABATHA S RN CIRCULATING Ot V58.81 09/29/2015 AGUILATABATHA S RN CIRCULATING Ot V76.12 09/29/2015 MORENO GANDHI, COURTNEY Berrios Ot V72.84 09/29/2015 AGUILATABATHA S RN CIRCULATING Ot 154.1 09/29/2015 AGUILATABATHA Rios S RN CIRCULATING Ot 196.6 09/29/2015 AGUILATABATHA S RN CIRCULATING Ot V15.3 09/29/2015 AGUILATABATHA Rios S RN CIRCULATING Ot V44.3 09/29/2015 AGUILATABATHA S RN CIRCULATING Ot V58.69 09/29/2015 AGUILATABATHA Rios S RN CIRCULATING Ot V58.81 09/29/2015 AGUILATABATHA Rios S RN CIRCULATING Ot C20 09/29/2015 AGUILATABATHA Rios S RN CIRCULATING Ot C77.5 09/29/2015 AGUILATABATHA Rios S RN CIRCULATING Ot Z79.899 09/29/2015 AGUILATABATHA S RN CIRCULATING Ot Z92.3 09/29/2015 AGUILATABATHA Rios S RN CIRCULATING Ot Z93.3 09/29/2015 AGUILATABATHA Rios S RN CIRCULATING Ot Z12.31 09/29/2015 FLORY, BOBAN N Ot C20 09/29/2015 FLORY, BOBAN N Ot C77.5 09/29/2015 FLORY, BOBAN N Ot Z79.899 09/29/2015 FLORY, BOBAN N Ot Z92.3 09/29/2015 FLORY, BOBAN N Ot Z93.3 10/08/2015 MINGO TABATHA S RN CIRCULATING Ot C20 MALIGNANT NEOPLASM OF RECTUM 10/08/2015 AGUILA TABATHA S RN CIRCULATING Ot 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 10/08/2015 TABATHA AGUILA RN CIRCULATING Ot R35.0 FREQUENCY OF MICTURITION 10/08/2015 TABATHA AGUILA RN CIRCULATING Ot Z79.899 OTHER [facility] (CURRENT) DRUG THERAPY 10/08/2015 TABATHA AGUILA RN CIRCULATING Ot Z92.3 PERSONAL HISTORY OF IRRADIATION 10/08/2015 TABATHA AGUILA RN CIRCULATING Ot Z93.3 COLOSTOMY STATUS 10/27/2015 TABATHA AGUILA RN CIRCULATING Ot C20 MALIGNANT NEOPLASM OF RECTUM 10/27/2015 TABATHA AGUILA RN CIRCULATING Ot 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 10/27/2015 TABATHA AGUILAP Ot R35.0 FREQUENCY OF MICTURITION 10/27/2015 TABATHA AGUILAP Ot Z79.899 OTHER [facility] (CURRENT) DRUG THERAPY 10/27/2015 TABATHA AGUILAP Ot Z92.3 PERSONAL HISTORY OF IRRADIATION 10/27/2015 TABATHA AGUILAP Ot Z93.3 COLOSTOMY STATUS 11/01/2015 ADRIEN HILL N Ot C20 MALIGNANT NEOPLASM OF RECTUM 11/01/2015 ADRIEN HILL N Ot 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 11/01/2015 FLORYADRIEN GONZALES N Ot Z45.2 ENCOUNTER FOR ADJUSTMENT AND MANAGEMENT 11/01/2015 FLORYADRIEN GONZALES N Ot Z79.899 OTHER [facility] (CURRENT) DRUG THERAPY 11/01/2015 FLORYADRIEN GONZALES N Ot Z92.3 PERSONAL HISTORY OF IRRADIATION 11/01/2015 ADRIEN HILL N Ot Z93.3 COLOSTOMY STATUS 11/02/2015 ADRIEN HILL N Ot C20 MALIGNANT NEOPLASM OF RECTUM 11/02/2015 ADRIEN HILL N Ot 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 11/02/2015 FLORYADRIEN GONZALES N Ot Z45.2 ENCOUNTER FOR ADJUSTMENT AND MANAGEMENT 11/02/2015 FLORYADRIEN GONZALES N Ot 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 11/02/2015 FLORYADRIEN GONZALES N Ot Z92.3 PERSONAL HISTORY OF IRRADIATION 11/02/2015 ADRIEN HILL N Ot Z93.3 COLOSTOMY STATUS 11/03/2015 TABATHA AGUILA RN CIRCULATING Ot C20 MALIGNANT NEOPLASM OF RECTUM 11/03/2015 TABATHA AGUILAP Ot 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 11/03/2015 TABATHA AGUILAP Ot R35.0 FREQUENCY OF MICTURITION 11/03/2015 TABATHA AGUILA RN CIRCULATING Ot Z79.899 OTHER [facility] (CURRENT) DRUG THERAPY 11/03/2015 TABATHA AGUILA RN CIRCULATING Ot Z92.3 PERSONAL HISTORY OF IRRADIATION 11/03/2015 TABATHA AGUILA RN CIRCULATING Ot Z93.3 COLOSTOMY STATUS 11/19/2015 ADRIEN HILL N Ot C20 MALIGNANT NEOPLASM OF RECTUM 11/19/2015 ADRIEN HILL N Ot 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 11/19/2015 ADRIEN HILL N Ot Z79.899 OTHER [facility] (CURRENT) DRUG THERAPY 11/19/2015 ADRIEN HILL N Ot Z92.3 PERSONAL HISTORY OF IRRADIATION 11/19/2015 ADRIEN HILL N Ot Z93.3 COLOSTOMY STATUS 12/17/2015 ADRIEN HILL N Ot C20 MALIGNANT NEOPLASM OF RECTUM 12/17/2015 ADRIEN HILL N Ot 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 12/17/2015 ADRIEN HILL N Ot Z45.2 ENCOUNTER FOR ADJUSTMENT AND MANAGEMENT 12/17/2015 ADRIEN HILL N Ot Z79.899 OTHER [facility] (CURRENT) DRUG THERAPY 12/17/2015 ADRIEN HILL N Ot Z92.3 PERSONAL HISTORY OF IRRADIATION 12/17/2015 ADRIEN HILL N Ot Z93.3 COLOSTOMY STATUS 12/21/2015 ADRIEN HILL N Ot C20 MALIGNANT NEOPLASM OF RECTUM 12/21/2015 ADRIEN HILL N Ot 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 12/21/2015 ADRIEN HILL N Ot Z45.2 ENCOUNTER FOR ADJUSTMENT AND MANAGEMENT 12/21/2015 ADRIEN HILL N Ot 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 12/21/2015 ADRIEN HILL N Ot Z92.3 PERSONAL HISTORY OF IRRADIATION 12/21/2015 ADRIEN HILL N Ot Z93.3 COLOSTOMY STATUS 01/06/2016 Ot V72.84 EXAM PRE-OPERATIVE NOS 01/06/2016 Ot 627.1 POSTMENOPAUSAL BLEEDING 01/06/2016 Ot 154.1 MALIGNANT NEOPL RECTUM 01/06/2016 Ot 154.1 MALIGNANT NEOPL RECTUM 01/06/2016 Ot 154.1 MALIGNANT NEOPL RECTUM 01/06/2016 Ot 305.1 TOBACCO USE DISORDER 01/06/2016 TABATHA AGUILA RN CIRCULATING Ot 154.1 MALIGNANT NEOPL RECTUM 01/06/2016 TABATHA AGUILA RN CIRCULATING Ot 692.82 DERMATITIS DUE TO OTHER RADIATION 01/06/2016 TABATHA AGUILA RN CIRCULATING Ot 782.2 LOCAL SUPRFICIAL SWELLNG 01/06/2016 TABATHA AGUILA RN CIRCULATING Ot V15.3 HX OF IRRADIATION 01/06/2016 TABATHA AGUILA RN CIRCULATING Ot V15.82 HISTORY OF TOBACCO USE 01/06/2016 TABATHA AGUILAP Ot V58.69 OTH MED,LT,CURRENT USE 01/06/2016 TABATHA AGUILA RN CIRCULATING Ot V87.41 PERSONAL HISTORY OF ANTINEOPLASTIC CHEMO 01/06/2016 MORENO GANDHI, COURTNEY Berrios Ot 154.1 MALIGNANT NEOPL RECTUM 01/06/2016 MORENO GANDHI, COURTNEY Berrios Ot V72.84 EXAM PRE-OPERATIVE NOS 01/06/2016 MORENO GANDHI, COURTNEY Berrios Ot 154.1 MALIGNANT NEOPL RECTUM 01/06/2016 MORENO GANDHI, COURTNEY Berrios Ot V72.83 EXAM PRE-OPERATIVE NEC 01/06/2016 MORENO GANDHI, COURTNEY Berrios Ot V74.8 SCREEN-BACTERIAL DIS NEC 01/06/2016 TABATHA AGUILA RN CIRCULATING Ot 154.1 MALIGNANT NEOPL RECTUM 01/06/2016 TABATHA AGUILA RN CIRCULATING Ot V15.3 HX OF IRRADIATION 01/06/2016 TABATHA AGUILA RN CIRCULATING Ot V15.82 HISTORY OF TOBACCO USE 01/06/2016 TABATHA AGUILA RN CIRCULATING Ot V58.69 OTH MED,LT,CURRENT USE 01/06/2016 TABATHA AGUILA RN CIRCULATING Ot V87.41 PERSONAL HISTORY OF ANTINEOPLASTIC CHEMO 01/06/2016 Ot 154.1 MALIGNANT NEOPL RECTUM 01/06/2016 Ot V58.0 ENCOUNTER FOR RADIOTHERAPY 01/06/2016 MORENO GANDHI, COURTNEY Berrios Ot 154.1 MALIGNANT NEOPL RECTUM 01/06/2016 MORENO GANDHI, COURTNEY Berrios Ot V72.84 EXAM PRE-OPERATIVE NOS 01/06/2016 MORENO GANDHI, COURTNEY Berrios Ot V74.8 SCREEN-BACTERIAL DIS NEC 01/06/2016 TABATHA AGUILA RN CIRCULATING Ot 154.1 MALIGNANT NEOPL RECTUM 01/06/2016 TABATHA AGUILA RN CIRCULATING Ot 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 01/06/2016 TABATHA AGUILA RN CIRCULATING Ot 338.18 OTHER ACUTE POSTOPERATIVE PAIN 01/06/2016 TABATHA AGUILA RN CIRCULATING Ot V15.3 HX OF IRRADIATION 01/06/2016 TABATHA AGUILA RN CIRCULATING Ot V44.3 COLOSTOMY STATUS 01/06/2016 TABATHA AGUILA RN CIRCULATING Ot V58.69 OTH MED,LT,CURRENT USE 01/06/2016 TABATHA AGUILA RN CIRCULATING Ot V87.41 PERSONAL HISTORY OF ANTINEOPLASTIC CHEMO 01/06/2016 ADRIEN HILL Ot 154.1 MALIGNANT NEOPL RECTUM 01/06/2016 MORENO GANDHI, COURTNEY Berrios Ot 154.1 MALIGNANT NEOPL RECTUM 01/06/2016 MORENO GANDHI, COURTNEY Berrios Ot V72.84 EXAM PRE-OPERATIVE NOS 01/06/2016 ADRIEN HILL N Ot 154.1 MALIGNANT NEOPL RECTUM 01/06/2016 ADRIEN HILL N Ot 154.1 MALIGNANT NEOPL RECTUM 01/06/2016 ADRIEN HILL Ot V58.69 OTH MED,LT,CURRENT USE 01/06/2016 TABATHA AGUILA RN CIRCULATING Ot 154.1 MALIGNANT NEOPL RECTUM 01/06/2016 TABATHA AGUILA RN CIRCULATING Ot 250.00 DIAB FELIZ WO COMPL, TYPE II OR UNSPEC TY 01/06/2016 TABATHA AGUILA S RN CIRCULATING Ot 300.00 ANXIETY STATE NOS 01/06/2016 TABATHA AGUILA RN CIRCULATING Ot 788.1 DYSURIA 01/06/2016 TABATHA AGUILA RN CIRCULATING Ot 788.41 URINARY FREQUENCY 01/06/2016 TABATHA AGUILA RN CIRCULATING Ot V58.69 OTH MED,LT,CURRENT USE 01/06/2016 ADRIEN HILL N Ot 154.1 MALIGNANT NEOPL RECTUM 01/06/2016 ADRIEN HILL Ot V58.69 OTH MED,LT,CURRENT USE 01/06/2016 TABATHA AGUILA S RN CIRCULATING Ot 154.1 MALIGNANT NEOPL RECTUM 01/06/2016 TABATHA AGUILA RN CIRCULATING Ot 250.00 DIAB FELIZ WO COMPL, TYPE II OR UNSPEC TY 01/06/2016 TABATHA AGUILA RN CIRCULATING Ot V58.69 OTH MED,LT,CURRENT USE 01/06/2016 MINGO TABATHA S RN CIRCULATING Ot 154.1 MALIGNANT NEOPL RECTUM 01/06/2016 TABATHA AGUILA S RN CIRCULATING Ot 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 01/06/2016 MODESTO AGUILAJONATHON Blanca RN CIRCULATING Ot 305.1 TOBACCO USE DISORDER 01/06/2016 TABATHA AGUILA RN CIRCULATING Ot V15.3 HX OF IRRADIATION 01/06/2016 TABATHA AGUILA RN CIRCULATING Ot V44.3 COLOSTOMY STATUS 01/06/2016 TABATHA AGUILA RN CIRCULATING Ot V58.69 OTH MED,LT,CURRENT USE 01/06/2016 ADRIEN HILL Ot 154.1 MALIGNANT NEOPL RECTUM 01/06/2016 MORENO GANDHI, COURTNEY M Ot V72.84 EXAM PRE-OPERATIVE NOS 01/06/2016 TABATHA AGUILA RN CIRCULATING Ot 154.1 MALIGNANT NEOPL RECTUM 01/06/2016 TABATHA AGUILA RN CIRCULATING Ot 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 01/06/2016 TABATHA AGUILA RN CIRCULATING Ot V15.3 HX OF IRRADIATION 01/06/2016 TABATHA AGUILA RN CIRCULATING Ot V44.3 COLOSTOMY STATUS 01/06/2016 TABATHA AGUILA RN CIRCULATING Ot V58.69 OTH MED,LT,CURRENT USE 01/06/2016 ADRIEN HILL Ot 722.4 CERVICAL DISC DEGEN 01/06/2016 TABATHA AGUILA RN CIRCULATING Ot 154.1 MALIGNANT NEOPL RECTUM 01/06/2016 TABATHA AGUILA RN CIRCULATING Ot 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 01/06/2016 TABATHA AGUILA RN CIRCULATING Ot V15.3 HX OF IRRADIATION 01/06/2016 TABATHA AGUILA S RN CIRCULATING Ot V44.3 COLOSTOMY STATUS 01/06/2016 TABATHA AGUILA RN CIRCULATING Ot V58.69 OTH MED,LT,CURRENT USE 01/06/2016 TABATHA AGUILA RN CIRCULATING Ot 154.1 MALIGNANT NEOPL RECTUM 01/06/2016 TABATHA AGUILA RN CIRCULATING Ot 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 01/06/2016 TABATHA AGUILA RN CIRCULATING Ot V15.3 HX OF IRRADIATION 01/06/2016 TABATHA AGUILA RN CIRCULATING Ot V44.3 COLOSTOMY STATUS 01/06/2016 TABATHA AGUILA RN CIRCULATING Ot V58.69 OTH MED,LT,CURRENT USE 01/06/2016 TABATHA AGUILA RN CIRCULATING Ot V58.81 FIT/ADJ VASCULAR CATHETER 01/06/2016 TABATHA AGUILA RN CIRCULATING Ot V76.12 OTH SCREEN MAMMO-MALIGN NEOPLASM OF AIRAM 01/06/2016 MORENO GANDHI, COURTNEY Berrios Ot V72.84 EXAM PRE-OPERATIVE NOS 01/06/2016 TABATHA AGUILA RN CIRCULATING Ot 154.1 MALIGNANT NEOPL RECTUM 01/06/2016 TABATHA AGUILA RN CIRCULATING Ot 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 01/06/2016 TABATHA AGUILA RN CIRCULATING Ot V15.3 HX OF IRRADIATION 01/06/2016 TABATHA AGUILA RN CIRCULATING Ot V44.3 COLOSTOMY STATUS 01/06/2016 TABATHA AGUILA RN CIRCULATING Ot V58.69 OTH MED,LT,CURRENT USE 01/06/2016 TABATHA AGUILA RN CIRCULATING Ot V58.81 FIT/ADJ VASCULAR CATHETER 01/06/2016 TABATHA AGUILA RN CIRCULATING Ot C20 MALIGNANT NEOPLASM OF RECTUM 01/06/2016 TABATHA AGUILA RN CIRCULATING Ot 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 01/06/2016 TABATHA AGUILA RN CIRCULATING Ot Z79.899 OTHER [facility] (CURRENT) DRUG THERAPY 01/06/2016 TABATHA AGUILA RN CIRCULATING Ot Z92.3 PERSONAL HISTORY OF IRRADIATION 01/06/2016 TABATHA AGUILA RN CIRCULATING Ot Z93.3 COLOSTOMY STATUS 01/06/2016 TABATHA AGUILA RN CIRCULATING Ot Z12.31 ENCNTR SCREEN MAMMOGRAM FOR MALIGNANT NE 01/06/2016 TABATHA AGUILA RN CIRCULATING Ot C20 MALIGNANT NEOPLASM OF RECTUM 01/06/2016 TABATHA AGUILA RN CIRCULATING Ot 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 01/06/2016 TABATHA AGUILA RN CIRCULATING Ot R35.0 FREQUENCY OF MICTURITION 01/06/2016 TABATHA AGUILA RN CIRCULATING Ot 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 01/06/2016 TABATHA AGUILA RN CIRCULATING Ot Z92.3 PERSONAL HISTORY OF IRRADIATION 01/06/2016 TABATHA AGUILA RN CIRCULATING Ot Z93.3 COLOSTOMY STATUS 01/06/2016 ADRIEN HILL Ot C20 MALIGNANT NEOPLASM OF RECTUM 01/06/2016 ADRIEN HILL Ot 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 01/06/2016 ADRIEN HILL Ot Z45.2 ENCOUNTER FOR ADJUSTMENT AND MANAGEMENT 01/06/2016 ADRIEN HILL Ot 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 01/06/2016 ADRIEN HILL Ot Z92.3 PERSONAL HISTORY OF IRRADIATION 01/06/2016 ADRIEN HILL Ot Z93.3 COLOSTOMY STATUS 01/06/2016 ADRIEN HILL Ot C20 MALIGNANT NEOPLASM OF RECTUM 01/06/2016 ADRIEN HILL Ot 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 01/06/2016 ADRIEN HILL Ot Z45.2 ENCOUNTER FOR ADJUSTMENT AND MANAGEMENT 01/06/2016 ADRIEN HILL Ot Z79.899 OTHER [facility] (CURRENT) DRUG THERAPY 01/06/2016 ADRIEN HILL Ot Z92.3 PERSONAL HISTORY OF IRRADIATION 01/06/2016 ADRIEN HILL Ot Z93.3 COLOSTOMY STATUS 01/20/2016 Ot V72.84 EXAM PRE-OPERATIVE NOS 01/20/2016 Ot 627.1 POSTMENOPAUSAL BLEEDING 01/20/2016 Ot 154.1 MALIGNANT NEOPL RECTUM 01/20/2016 Ot 154.1 MALIGNANT NEOPL RECTUM 01/20/2016 Ot 154.1 MALIGNANT NEOPL RECTUM 01/20/2016 Ot 305.1 TOBACCO USE DISORDER 01/20/2016 TABATHA AGUILAP Ot 154.1 MALIGNANT NEOPL RECTUM 01/20/2016 TABATHA AGUILAP Ot 692.82 DERMATITIS DUE TO OTHER RADIATION 01/20/2016 TABATHA AGUILAP Ot 782.2 LOCAL SUPRFICIAL SWELLNG 01/20/2016 TABATHA AGUILAP Ot V15.3 HX OF IRRADIATION 01/20/2016 TABATHA AGUILA RN CIRCULATING Ot V15.82 HISTORY OF TOBACCO USE 01/20/2016 TABATHA AGUILA S RN CIRCULATING Ot V58.69 OTH MED,LT,CURRENT USE 01/20/2016 TABATHA AGUILA S RN CIRCULATING Ot V87.41 PERSONAL HISTORY OF ANTINEOPLASTIC CHEMO 01/20/2016 MORENO GANDHI, COURTNEY Berrios Ot 154.1 MALIGNANT NEOPL RECTUM 01/20/2016 MORENO GANDHI, COURTNEY Berrios Ot V72.84 EXAM PRE-OPERATIVE NOS 01/20/2016 MORENO GANDHI, COURTNEY Berrios Ot 154.1 MALIGNANT NEOPL RECTUM 01/20/2016 MORENO GANDHI, COURTNEY Yash Ot V72.83 EXAM PRE-OPERATIVE NEC 01/20/2016 MORENO GANDHI, COURTNEY Berrios Ot V74.8 SCREEN-BACTERIAL DIS NEC 01/20/2016 TABATHA AGUILA S RN CIRCULATING Ot 154.1 MALIGNANT NEOPL RECTUM 01/20/2016 TABATHA AGUILA S RN CIRCULATING Ot V15.3 HX OF IRRADIATION 01/20/2016 TABATHA AGUILA RN CIRCULATING Ot V15.82 HISTORY OF TOBACCO USE 01/20/2016 TABATHA AGUILA RN CIRCULATING Ot V58.69 OTH MED,LT,CURRENT USE 01/20/2016 TABATHA AGUILA S RN CIRCULATING Ot V87.41 PERSONAL HISTORY OF ANTINEOPLASTIC CHEMO 01/20/2016 Ot 154.1 MALIGNANT NEOPL RECTUM 01/20/2016 Ot V58.0 ENCOUNTER FOR RADIOTHERAPY 01/20/2016 MORENO GANDHI, COURTNEY Yash Ot 154.1 MALIGNANT NEOPL RECTUM 01/20/2016 MORENO GANDHI, COURTNEY Yash Ot V72.84 EXAM PRE-OPERATIVE NOS 01/20/2016 MORENO GANDHI, COUTRNEY Berrios Ot V74.8 SCREEN-BACTERIAL DIS NEC 01/20/2016 TABATHA AGUILA RN CIRCULATING Ot 154.1 MALIGNANT NEOPL RECTUM 01/20/2016 TABATHA AGUILA RN CIRCULATING Ot 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 01/20/2016 TABATHA AGUILA RN CIRCULATING Ot 338.18 OTHER ACUTE POSTOPERATIVE PAIN 01/20/2016 TABATHA AGUILA RN CIRCULATING Ot V15.3 HX OF IRRADIATION 01/20/2016 TABATHA AGUILA RN CIRCULATING Ot V44.3 COLOSTOMY STATUS 01/20/2016 TABATHA AGUILA RN CIRCULATING Ot V58.69 OTH MED,LT,CURRENT USE 01/20/2016 TABATHA AGUILA RN CIRCULATING Ot V87.41 PERSONAL HISTORY OF ANTINEOPLASTIC CHEMO 01/20/2016 ADRIEN HILL N Ot 154.1 MALIGNANT NEOPL RECTUM 01/20/2016 MORENO GANDHI, COURTNEY M Ot 154.1 MALIGNANT NEOPL RECTUM 01/20/2016 MORENO GANDHI, COURTNEY Berrios Ot V72.84 EXAM PRE-OPERATIVE NOS 01/20/2016 FLORY DINORADHA N Ot 154.1 MALIGNANT NEOPL RECTUM 01/20/2016 ADRIEN HILL N Ot 154.1 MALIGNANT NEOPL RECTUM 01/20/2016 ADRIEN HILL N Ot V58.69 OTH MED,LT,CURRENT USE 01/20/2016 TABATHA AGUILA RN CIRCULATING Ot 154.1 MALIGNANT NEOPL RECTUM 01/20/2016 TABATHA AGUILA RN CIRCULATING Ot 250.00 DIAB FELIZ WO COMPL, TYPE II OR UNSPEC TY 01/20/2016 TABATHA AGUILA RN CIRCULATING Ot 300.00 ANXIETY STATE NOS 01/20/2016 TABATHA AGUILA RN CIRCULATING Ot 788.1 DYSURIA 01/20/2016 TABATHA AGUILA RN CIRCULATING Ot 788.41 URINARY FREQUENCY 01/20/2016 TABATHA AGUILA RN CIRCULATING Ot V58.69 OTH MED,LT,CURRENT USE 01/20/2016 FLORY ADRIEN N Ot 154.1 MALIGNANT NEOPL RECTUM 01/20/2016 ADRIEN HILL N Ot V58.69 OTH MED,LT,CURRENT USE 01/20/2016 TABATHA AGUILA RN CIRCULATING Ot 154.1 MALIGNANT NEOPL RECTUM 01/20/2016 TABATHA AGUILA RN CIRCULATING Ot 250.00 DIAB FELIZ WO COMPL, TYPE II OR UNSPEC TY 01/20/2016 TABATHA AGUILA RN CIRCULATING Ot V58.69 OTH MED,LT,CURRENT USE 01/20/2016 TABATHA AGUILA RN CIRCULATING Ot 154.1 MALIGNANT NEOPL RECTUM 01/20/2016 TABATHA AGUILA RN CIRCULATING Ot 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 01/20/2016 TABATHA AGUILA RN CIRCULATING Ot 305.1 TOBACCO USE DISORDER 01/20/2016 TABATHA AGUILA RN CIRCULATING Ot V15.3 HX OF IRRADIATION 01/20/2016 AGUILA, HILAH S RN CIRCULATING Ot V44.3 COLOSTOMY STATUS 01/20/2016 TABATHA AGUILA S RN CIRCULATING Ot V58.69 OTH MED,LT,CURRENT USE 01/20/2016 ADRIEN HILL N Ot 154.1 MALIGNANT NEOPL RECTUM 01/20/2016 MORENO GANDHI, COURTNEY Berrios Ot V72.84 EXAM PRE-OPERATIVE NOS 01/20/2016 TABATHA AGUILA S RN CIRCULATING Ot 154.1 MALIGNANT NEOPL RECTUM 01/20/2016 TABATHA AGUILA S RN CIRCULATING Ot 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 01/20/2016 TABATHA AGUILA S RN CIRCULATING Ot V15.3 HX OF IRRADIATION 01/20/2016 AGUILATABATHA Rios S RN CIRCULATING Ot V44.3 COLOSTOMY STATUS 01/20/2016 TABATHA AGUILA S RN CIRCULATING Ot V58.69 OTH MED,LT,CURRENT USE 01/20/2016 ADRIEN HILL Ot 722.4 CERVICAL DISC DEGEN 01/20/2016 TABATHA AGUILA S RN CIRCULATING Ot 154.1 MALIGNANT NEOPL RECTUM 01/20/2016 TABATHA AGUILA S RN CIRCULATING Ot 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 01/20/2016 TABATHA AGUILA S RN CIRCULATING Ot V15.3 HX OF IRRADIATION 01/20/2016 TABATHA AGUILA S RN CIRCULATING Ot V44.3 COLOSTOMY STATUS 01/20/2016 TABATHA AGUILA S RN CIRCULATING Ot V58.69 OTH MED,LT,CURRENT USE 01/20/2016 TABATHA AGUILA S RN CIRCULATING Ot 154.1 MALIGNANT NEOPL RECTUM 01/20/2016 TABATHA AGUILA S RN CIRCULATING Ot 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 01/20/2016 TABATHA AGUILA S RN CIRCULATING Ot V15.3 HX OF IRRADIATION 01/20/2016 TABATHA AGUILA S RN CIRCULATING Ot V44.3 COLOSTOMY STATUS 01/20/2016 TABATHA AGUILA S RN CIRCULATING Ot V58.69 OTH MED,LT,CURRENT USE 01/20/2016 TABATHA AGUILA S RN CIRCULATING Ot V58.81 FIT/ADJ VASCULAR CATHETER 01/20/2016 TABATHA AGUILA S RN CIRCULATING Ot V76.12 OTH SCREEN MAMMO-MALIGN NEOPLASM OF AIRAM 01/20/2016 MORENO GANDHI, COURTNEY Berrios Ot V72.84 EXAM PRE-OPERATIVE NOS 01/20/2016 [place] TABATHA Rios RN CIRCULATING Ot 154.1 MALIGNANT NEOPL RECTUM 01/20/2016 [place] TABATHA Blanca RN CIRCULATING Ot 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 01/20/2016 [place] TABATHA Rios RN CIRCULATING Ot V15.3 HX OF IRRADIATION 01/20/2016 [place] TABATHA Rios RN CIRCULATING Ot V44.3 COLOSTOMY STATUS 01/20/2016 AGUILA TABATHA Rios RN CIRCULATING Ot V58.69 OTH MED,LT,CURRENT USE 01/20/2016 AGUILATABATHA Rios RN CIRCULATING Ot V58.81 FIT/ADJ VASCULAR CATHETER 01/20/2016 [place] AGUILAJONATHON Rios RN CIRCULATING Ot C20 MALIGNANT NEOPLASM OF RECTUM 01/20/2016 [place] TABATHA Rios RN CIRCULATING Ot 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 01/20/2016 [place] TABATHA Rios RN CIRCULATING Ot Z79.899 OTHER [facility] (CURRENT) DRUG THERAPY 01/20/2016 [place] AGUILAJONATHON Rios RN CIRCULATING Ot Z92.3 PERSONAL HISTORY OF IRRADIATION 01/20/2016 [place] TABATHA Rios RN CIRCULATING Ot Z93.3 COLOSTOMY STATUS 01/20/2016 [place] TABATHA Rios RN CIRCULATING Ot Z12.31 ENCNTR SCREEN MAMMOGRAM FOR MALIGNANT NE 01/20/2016 [place] TABATHA Rios RN CIRCULATING Ot C20 MALIGNANT NEOPLASM OF RECTUM 01/20/2016 [place] TABATHA Rios RN CIRCULATING Ot 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 01/20/2016 MODE[place] AGUILAJONATHON Rios RN CIRCULATING Ot R35.0 FREQUENCY OF MICTURITION 01/20/2016 [place] TABATHA Rios RN CIRCULATING Ot Z79.899 OTHER [facility] (CURRENT) DRUG THERAPY 01/20/2016 [place] TABATHA Rios RN CIRCULATING Ot Z92.3 PERSONAL HISTORY OF IRRADIATION 01/20/2016 [place] TABATHA Rios RN CIRCULATING Ot Z93.3 COLOSTOMY STATUS 01/20/2016 ADRIEN HILL Ot C20 MALIGNANT NEOPLASM OF RECTUM 01/20/2016 ADRIEN HILL Ot 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 01/20/2016 ADRIEN HILL Ot Z45.2 ENCOUNTER FOR ADJUSTMENT AND MANAGEMENT 01/20/2016 ADRIEN HILL Ot Z79.899 OTHER [facility] (CURRENT) DRUG THERAPY 01/20/2016 ADRIEN [place]ILL Ot Z92.3 PERSONAL HISTORY OF IRRADIATION 01/20/2016 ADRIEN HILL Ot Z93.3 COLOSTOMY STATUS 01/27/2016 Ot 154.1 MALIGNANT NEOPL RECTUM 01/27/2016 Ot V58.0 ENCOUNTER FOR RADIOTHERAPY 01/27/2016 COURTNEY MAYER MD Ot Z01.818 ENCOUNTER FOR OTHER PREPROCEDURAL EXAMIN 01/28/2016 COURTNEY MAYER MD Ot Z01.818 ENCOUNTER FOR OTHER PREPROCEDURAL EXAMIN 01/31/2016 COURTNEY MAYER MD Ot E11.9 TYPE 2 DIABETES MELLITUS WITHOUT COMPLIC 01/31/2016 COURTNEY MAYER MD Ot F17.210 NICOTINE DEPENDENCE, CIGARETTES, UNCOMPL 01/31/2016 COURTNEY MAYER MD Ot Z08 ENCNTR FOR FOLLOW-UP EXAM AFTER TRTMT FO 01/31/2016 COURTNEY MAYER MD Ot 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 01/31/2016 COURTNEY MAYER MD Ot Z85.048 PRSNL HX OF MALIG NEOPLM OF RECTUM, RECT 01/31/2016 COURTNEY MAYER MD Ot Z92.21 PERSONAL HISTORY OF ANTINEOPLASTIC CHEMO 01/31/2016 COURTNEY MAYER MD Ot Z92.3 PERSONAL HISTORY OF IRRADIATION 01/31/2016 COURTNEY MAYER MD Ot Z93.3 COLOSTOMY STATUS 02/01/2016 COURTNEY MAYER MD Ot E11.9 TYPE 2 DIABETES MELLITUS WITHOUT COMPLIC 02/01/2016 COURTNEY MAYER MD Ot F17.210 NICOTINE DEPENDENCE, CIGARETTES, UNCOMPL 02/01/2016 COURTNEY MAYER MD Ot Z08 ENCNTR FOR FOLLOW-UP EXAM AFTER TRTMT FO 02/01/2016 COURTNEY MAYER MD Ot Z79.899 OTHER [facility] (CURRENT) DRUG THERAPY 02/01/2016 COURTNEY MAYER MD Ot Z85.048 PRSNL HX OF MALIG NEOPLM OF RECTUM, RECT 02/01/2016 COURTNEY MAYER MD Ot Z92.21 PERSONAL HISTORY OF ANTINEOPLASTIC CHEMO 02/01/2016 COURTNEY MAYER MD Ot Z92.3 PERSONAL HISTORY OF IRRADIATION 02/01/2016 MORENO GANDHI, COURTNEY Berrios Ot Z93.3 COLOSTOMY STATUS 02/10/2016 [place] N Ot C20 MALIGNANT NEOPLASM OF RECTUM 02/10/2016 ADRIEN HILL N Ot 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 02/10/2016 ADRIEN HILL N Ot Z45.2 ENCOUNTER FOR ADJUSTMENT AND MANAGEMENT 02/10/2016 ADRIEN HILL N Ot Z79.899 OTHER [facility] (CURRENT) DRUG THERAPY 02/10/2016 ADRIEN HILL N Ot Z92.3 PERSONAL HISTORY OF IRRADIATION 02/10/2016 ADRIEN HILL N Ot Z93.3 COLOSTOMY STATUS 02/16/2016 ADRIEN HILL N Ot C20 MALIGNANT NEOPLASM OF RECTUM 02/16/2016 ADRIEN HILL N Ot 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 02/16/2016 ADRIEN HILL N Ot Z45.2 ENCOUNTER FOR ADJUSTMENT AND MANAGEMENT 02/16/2016 ADRIEN HILL N Ot 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 02/16/2016 ADRIEN HILL N Ot Z92.3 PERSONAL HISTORY OF IRRADIATION 02/16/2016 ADRIEN HILL Ot Z93.3 COLOSTOMY STATUS 02/17/2016 ADRIEN HILL N Ot C20 MALIGNANT NEOPLASM OF RECTUM 02/17/2016 ADRIEN HILL N Ot 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 02/17/2016 ADRIEN HILL Ot Z45.2 ENCOUNTER FOR ADJUSTMENT AND MANAGEMENT 02/17/2016 ADRIEN HILL Ot Z79.899 OTHER [facility] (CURRENT) DRUG THERAPY 02/17/2016 ADRIEN HILL N Ot Z92.3 PERSONAL HISTORY OF IRRADIATION 02/17/2016 ADRIEN HILL N Ot Z93.3 COLOSTOMY STATUS 04/06/2016 ADRIEN HILL N Ot C20 MALIGNANT NEOPLASM OF RECTUM 04/06/2016 ADRIEN HILL N Ot 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 04/06/2016 FLORYADRIEN GONZALES N Ot Z45.2 ENCOUNTER FOR ADJUSTMENT AND MANAGEMENT 04/06/2016 ADRIEN HILL N Ot Z79.899 OTHER [facility] (CURRENT) DRUG THERAPY 04/06/2016 ADRIEN HILL N Ot Z92.3 PERSONAL HISTORY OF IRRADIATION 04/06/2016 ADRIEN HILL Ot Z93.3 COLOSTOMY STATUS 04/06/2016 Ot V72.84 EXAM PRE-OPERATIVE NOS 04/06/2016 Ot 627.1 POSTMENOPAUSAL BLEEDING 04/06/2016 Ot 154.1 MALIGNANT NEOPL RECTUM 04/06/2016 Ot 154.1 MALIGNANT NEOPL RECTUM 04/06/2016 Ot 154.1 MALIGNANT NEOPL RECTUM 04/06/2016 Ot 305.1 TOBACCO USE DISORDER 04/06/2016 TABATHA AGUILA RN CIRCULATING Ot 154.1 MALIGNANT NEOPL RECTUM 04/06/2016 TABATHA AGUILA RN CIRCULATING Ot 692.82 DERMATITIS DUE TO OTHER RADIATION 04/06/2016 TABATHA AGUILA RN CIRCULATING Ot 782.2 LOCAL SUPRFICIAL SWELLNG 04/06/2016 TABATHA AGUILA RN CIRCULATING Ot V15.3 HX OF IRRADIATION 04/06/2016 TABATHA AGUILA S RN CIRCULATING Ot V15.82 HISTORY OF TOBACCO USE 04/06/2016 TABATHA AGUILA RN CIRCULATING Ot V58.69 OTH MED,LT,CURRENT USE 04/06/2016 TABATHA AGUILA S RN CIRCULATING Ot V87.41 PERSONAL HISTORY OF ANTINEOPLASTIC CHEMO 04/06/2016 MORENO GANDHI, COURTNEY Berrios Ot 154.1 MALIGNANT NEOPL RECTUM 04/06/2016 MORENO GANDHI, COURTNEY Berrios Ot V72.84 EXAM PRE-OPERATIVE NOS 04/06/2016 MORENO GANDHI, COURTNEY Berrios Ot 154.1 MALIGNANT NEOPL RECTUM 04/06/2016 MORENO GANDHI, COURTNEY Berrios Ot V72.83 EXAM PRE-OPERATIVE NEC 04/06/2016 MORENO GANDHI, COURTNEY Berriso Ot V74.8 SCREEN-BACTERIAL DIS NEC 04/06/2016 TABATHA AGUILA RN CIRCULATING Ot 154.1 MALIGNANT NEOPL RECTUM 04/06/2016 TABATHA AGUILA RN CIRCULATING Ot V15.3 HX OF IRRADIATION 04/06/2016 TABATHA AGUILA RN CIRCULATING Ot V15.82 HISTORY OF TOBACCO USE 04/06/2016 TABATHA AGUILA S RN CIRCULATING Ot V58.69 OTH MED,LT,CURRENT USE 04/06/2016 TABATHA AGUILA S RN CIRCULATING Ot V87.41 PERSONAL HISTORY OF ANTINEOPLASTIC CHEMO 04/06/2016 Ot 154.1 MALIGNANT NEOPL RECTUM 04/06/2016 Ot V58.0 ENCOUNTER FOR RADIOTHERAPY 04/06/2016 MORENO GANDHI, COURTNEY Berrios Ot 154.1 MALIGNANT NEOPL RECTUM 04/06/2016 MORENO GANDHI, COURTNEY Berrios Ot V72.84 EXAM PRE-OPERATIVE NOS 04/06/2016 MORENO GANDHI, COURTNEY Berrios Ot V74.8 SCREEN-BACTERIAL DIS NEC 04/06/2016 TABATHA AGUILA S RN CIRCULATING Ot 154.1 MALIGNANT NEOPL RECTUM 04/06/2016 TABATHA AGUILA S RN CIRCULATING Ot 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 04/06/2016 MODESTO AGUILAAH S RN CIRCULATING Ot 338.18 OTHER ACUTE POSTOPERATIVE PAIN 04/06/2016 MODESTO AGUILAAH S RN CIRCULATING Ot V15.3 HX OF IRRADIATION 04/06/2016 MODESTO AGUILAAH S RN CIRCULATING Ot V44.3 COLOSTOMY STATUS 04/06/2016 TABATHA AGUILA S RN CIRCULATING Ot V58.69 OTH MED,LT,CURRENT USE 04/06/2016 TABATHA AGUILA S RN CIRCULATING Ot V87.41 PERSONAL HISTORY OF ANTINEOPLASTIC CHEMO 04/06/2016 ADRIEN HILL N Ot 154.1 MALIGNANT NEOPL RECTUM 04/06/2016 MORENO GANDHI, COURTNEY Berrios Ot 154.1 MALIGNANT NEOPL RECTUM 04/06/2016 MORENO GANDHI, COURTNEY Berrios Ot V72.84 EXAM PRE-OPERATIVE NOS 04/06/2016 ADRIEN HILL Ot 154.1 MALIGNANT NEOPL RECTUM 04/06/2016 ADRIEN HILL N Ot 154.1 MALIGNANT NEOPL RECTUM 04/06/2016 ADRIEN HILL Ot V58.69 OTH MED,LT,CURRENT USE 04/06/2016 TABATHA AGUILA S RN CIRCULATING Ot 154.1 MALIGNANT NEOPL RECTUM 04/06/2016 TABATHA AGUILA S RN CIRCULATING Ot 250.00 DIAB FELIZ WO COMPL, TYPE II OR UNSPEC TY 04/06/2016 MODESTO AGUILAAH S RN CIRCULATING Ot 300.00 ANXIETY STATE NOS 04/06/2016 TABATHA AGUILA S RN CIRCULATING Ot 788.1 DYSURIA 04/06/2016 TABATHA AGUILA S RN CIRCULATING Ot 788.41 URINARY FREQUENCY 04/06/2016 TABATHA AGUILA S RN CIRCULATING Ot V58.69 OTH MED,LT,CURRENT USE 04/06/2016 ADRIEN HILL N Ot 154.1 MALIGNANT NEOPL RECTUM 04/06/2016 ADRIEN HILL N Ot V58.69 OTH MED,LT,CURRENT USE 04/06/2016 [place] TABATHA Rios RN CIRCULATING Ot 154.1 MALIGNANT NEOPL RECTUM 04/06/2016 TABATHA AGUILA S RN CIRCULATING Ot 250.00 DIAB FELIZ WO COMPL, TYPE II OR UNSPEC TY 04/06/2016 TABATHA AGUILA RN CIRCULATING Ot V58.69 OTH MED,LT,CURRENT USE 04/06/2016 TABATHA AGUILA RN CIRCULATING Ot 154.1 MALIGNANT NEOPL RECTUM 04/06/2016 TABATHA AGUILA S RN CIRCULATING Ot 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 04/06/2016 TABATHA AGUILA RN CIRCULATING Ot 305.1 TOBACCO USE DISORDER 04/06/2016 TABATHA AGUILA S RN CIRCULATING Ot V15.3 HX OF IRRADIATION 04/06/2016 TABATHA AGUILA RN CIRCULATING Ot V44.3 COLOSTOMY STATUS 04/06/2016 TABATHA AGUILA RN CIRCULATING Ot V58.69 OTH MED,LT,CURRENT USE 04/06/2016 FLORY, ADRIEN N Ot 154.1 MALIGNANT NEOPL RECTUM 04/06/2016 MORENO GANDHI, COURTNEY M Ot V72.84 EXAM PRE-OPERATIVE NOS 04/06/2016 TABATHA AGUILA RN CIRCULATING Ot 154.1 MALIGNANT NEOPL RECTUM 04/06/2016 TABATHA AGUILA S RN CIRCULATING Ot 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 04/06/2016 TABATHA AGUILA RN CIRCULATING Ot V15.3 HX OF IRRADIATION 04/06/2016 TABATHA AGUILA RN CIRCULATING Ot V44.3 COLOSTOMY STATUS 04/06/2016 TABATHA AGUILA RN CIRCULATING Ot V58.69 OTH MED,LT,CURRENT USE 04/06/2016 FLORYADRIEN GONZALES N Ot 722.4 CERVICAL DISC DEGEN 04/06/2016 TABATHA AGUILA S RN CIRCULATING Ot 154.1 MALIGNANT NEOPL RECTUM 04/06/2016 TABATHA AGUILA S RN CIRCULATING Ot 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 04/06/2016 TABATHA AGUILA S RN CIRCULATING Ot V15.3 HX OF IRRADIATION 04/06/2016 TABATHA AGUILA S RN CIRCULATING Ot V44.3 COLOSTOMY STATUS 04/06/2016 [place] TABATHA Rios RN CIRCULATING Ot V58.69 OTH MED,LT,CURRENT USE 04/06/2016 TABATHA AGUILA RN CIRCULATING Ot 154.1 MALIGNANT NEOPL RECTUM 04/06/2016 TABATHA AGUILA RN CIRCULATING Ot 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 04/06/2016 MODESTO AGUILAJONATHON Blanca RN CIRCULATING Ot V15.3 HX OF IRRADIATION 04/06/2016 TABATHA AGUILA RN CIRCULATING Ot V44.3 COLOSTOMY STATUS 04/06/2016 [place] TABATHA Blanca RN CIRCULATING Ot V58.69 OTH MED,LT,CURRENT USE 04/06/2016 TABATHA AGUILA RN CIRCULATING Ot V58.81 FIT/ADJ VASCULAR CATHETER 04/06/2016 TABATHA AGUILAP Ot V76.12 OTH SCREEN MAMMO-MALIGN NEOPLASM OF AIRAM 04/06/2016 MORENO GANDHI, COURTNEY Berrios Ot V72.84 EXAM PRE-OPERATIVE NOS 04/06/2016 TABATHA AGUILA RN CIRCULATING Ot 154.1 MALIGNANT NEOPL RECTUM 04/06/2016 TABATHA AGUILA RN CIRCULATING Ot 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 04/06/2016 MODESTO AGUILAJONATHON Blanca RN CIRCULATING Ot V15.3 HX OF IRRADIATION 04/06/2016 TABATHA AGUILA RN CIRCULATING Ot V44.3 COLOSTOMY STATUS 04/06/2016 TABATHA AGUILAP Ot V58.69 OTH MED,LT,CURRENT USE 04/06/2016 TABATHA AGUILA RN CIRCULATING Ot V58.81 FIT/ADJ VASCULAR CATHETER 04/06/2016 TABATHA AGUILA RN CIRCULATING Ot C20 MALIGNANT NEOPLASM OF RECTUM 04/06/2016 TABATHA AGUILA RN CIRCULATING Ot 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 04/06/2016 TABATHA AGUILA RN CIRCULATING Ot Z79.899 OTHER [facility] (CURRENT) DRUG THERAPY 04/06/2016 TABATHA AGUILA RN CIRCULATING Ot Z92.3 PERSONAL HISTORY OF IRRADIATION 04/06/2016 TABATHA AGUILA RN CIRCULATING Ot Z93.3 COLOSTOMY STATUS 04/06/2016 TABATHA AGUILA RN CIRCULATING Ot Z12.31 ENCNTR SCREEN MAMMOGRAM FOR MALIGNANT NE 04/06/2016 TABATHA AGUILA RN CIRCULATING Ot C20 MALIGNANT NEOPLASM OF RECTUM 04/06/2016 TABATHA AGUILA RN CIRCULATING Ot 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 04/06/2016 MODESTO AGUILAJONATHON Rios RN CIRCULATING Ot R35.0 FREQUENCY OF MICTURITION 04/06/2016 MODESTO AGUILAJONATHON Rios RN CIRCULATING Ot 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 04/06/2016 MODESTO AGUILAJONATHON Rios RN CIRCULATING Ot Z92.3 PERSONAL HISTORY OF IRRADIATION 04/06/2016 [place] TABATHA Rios RN CIRCULATING Ot Z93.3 COLOSTOMY STATUS 04/06/2016 ADRIEN HILL Ot C20 MALIGNANT NEOPLASM OF RECTUM 04/06/2016 ADRIEN HILL Ot 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 04/06/2016 ADRIEN HILL Ot Z45.2 ENCOUNTER FOR ADJUSTMENT AND MANAGEMENT 04/06/2016 ADRIEN HILL Ot Z79.899 OTHER [facility] (CURRENT) DRUG THERAPY 04/06/2016 ADRIEN HILL Ot Z92.3 PERSONAL HISTORY OF IRRADIATION 04/06/2016 ADRIEN HILL Ot Z93.3 COLOSTOMY STATUS 04/06/2016 Ot V72.84 EXAM PRE-OPERATIVE NOS 04/06/2016 Ot 627.1 POSTMENOPAUSAL BLEEDING 04/06/2016 Ot 154.1 MALIGNANT NEOPL RECTUM 04/06/2016 Ot 154.1 MALIGNANT NEOPL RECTUM 04/06/2016 Ot 154.1 MALIGNANT NEOPL RECTUM 04/06/2016 Ot 305.1 TOBACCO USE DISORDER 04/06/2016 TABATHA AGUILA RN CIRCULATING Ot 154.1 MALIGNANT NEOPL RECTUM 04/06/2016 TABATHA AGUILA RN CIRCULATING Ot 692.82 DERMATITIS DUE TO OTHER RADIATION 04/06/2016 TABATHA AGUILA RN CIRCULATING Ot 782.2 LOCAL SUPRFICIAL SWELLNG 04/06/2016 TABATHA AGUILA RN CIRCULATING Ot V15.3 HX OF IRRADIATION 04/06/2016 TABATHA AGUILA RN CIRCULATING Ot V15.82 HISTORY OF TOBACCO USE 04/06/2016 TABATHA AGUILA RN CIRCULATING Ot V58.69 OTH MED,LT,CURRENT USE 04/06/2016 TABATHA AGUILA Blanca RN CIRCULATING Ot V87.41 PERSONAL HISTORY OF ANTINEOPLASTIC CHEMO 04/06/2016 MORENO GANDHI, COURTNEY Berrios Ot 154.1 MALIGNANT NEOPL RECTUM 04/06/2016 MORENO GANDHI, COURTNEY Yash Ot V72.84 EXAM PRE-OPERATIVE NOS 04/06/2016 MORENO GANDHI, COURTNEY Berrios Ot 154.1 MALIGNANT NEOPL RECTUM 04/06/2016 MORENO GANDHI, COURTNEY Berrios Ot V72.83 EXAM PRE-OPERATIVE NEC 04/06/2016 MORENO GANDHI, COURTNEY Berrios Ot V74.8 SCREEN-BACTERIAL DIS NEC 04/06/2016 TABATHA AGUILA S RN CIRCULATING Ot 154.1 MALIGNANT NEOPL RECTUM 04/06/2016 TABATHA AGUILA S RN CIRCULATING Ot V15.3 HX OF IRRADIATION 04/06/2016 AGUILA, HILAH S RN CIRCULATING Ot V15.82 HISTORY OF TOBACCO USE 04/06/2016 TABATHA AGUILA S RN CIRCULATING Ot V58.69 OTH MED,LT,CURRENT USE 04/06/2016 TABATHA AGUILA S RN CIRCULATING Ot V87.41 PERSONAL HISTORY OF ANTINEOPLASTIC CHEMO 04/06/2016 Ot 154.1 MALIGNANT NEOPL RECTUM 04/06/2016 Ot V58.0 ENCOUNTER FOR RADIOTHERAPY 04/06/2016 MORENO GANDHI, COURTNEY Berrios Ot 154.1 MALIGNANT NEOPL RECTUM 04/06/2016 MORENO GANDHI, COURTNEY Berrios Ot V72.84 EXAM PRE-OPERATIVE NOS 04/06/2016 MORENO GANDHI, COURTNEY Berrios Ot V74.8 SCREEN-BACTERIAL DIS NEC 04/06/2016 TABATHA AGUILA S RN CIRCULATING Ot 154.1 MALIGNANT NEOPL RECTUM 04/06/2016 TABATHA AGUILA S RN CIRCULATING Ot 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 04/06/2016 TABATHA AGUILA S RN CIRCULATING Ot 338.18 OTHER ACUTE POSTOPERATIVE PAIN 04/06/2016 TABATHA AGUILA S RN CIRCULATING Ot V15.3 HX OF IRRADIATION 04/06/2016 TABATHA AGUILA S RN CIRCULATING Ot V44.3 COLOSTOMY STATUS 04/06/2016 TABATHA AGUILA S RN CIRCULATING Ot V58.69 OTH MED,LT,CURRENT USE 04/06/2016 MODESTO AGUIALAH S RN CIRCULATING Ot V87.41 PERSONAL HISTORY OF ANTINEOPLASTIC CHEMO 04/06/2016 ADRIEN HILL Ot 154.1 MALIGNANT NEOPL RECTUM 04/06/2016 COURTNEY MAYER MD Ot 154.1 MALIGNANT NEOPL RECTUM 04/06/2016 MORENO GANDHI, COURTNEY Berrios Ot V72.84 EXAM PRE-OPERATIVE NOS 04/06/2016 ADRIEN HILL N Ot 154.1 MALIGNANT NEOPL RECTUM 04/06/2016 FLORYADRIEN GONZALES N Ot 154.1 MALIGNANT NEOPL RECTUM 04/06/2016 [place] ADRIEN Griffiths Ot V58.69 OTH MED,LT,CURRENT USE 04/06/2016 TABATHA AGUILA S RN CIRCULATING Ot 154.1 MALIGNANT NEOPL RECTUM 04/06/2016 TABATHA AGUILA S RN CIRCULATING Ot 250.00 DIAB FELIZ WO COMPL, TYPE II OR UNSPEC TY 04/06/2016 AGUILATABATHA Rios S RN CIRCULATING Ot 300.00 ANXIETY STATE NOS 04/06/2016 TABATHA AGUILA S RN CIRCULATING Ot 788.1 DYSURIA 04/06/2016 TABATHA AGUILA S RN CIRCULATING Ot 788.41 URINARY FREQUENCY 04/06/2016 TABATHA AGUILA S RN CIRCULATING Ot V58.69 OTH MED,LT,CURRENT USE 04/06/2016 ADRIEN HILL N Ot 154.1 MALIGNANT NEOPL RECTUM 04/06/2016 ADRIEN HILL N Ot V58.69 OTH MED,LT,CURRENT USE 04/06/2016 TABATHA AGUILA S RN CIRCULATING Ot 154.1 MALIGNANT NEOPL RECTUM 04/06/2016 TABATHA AGUILA S RN CIRCULATING Ot 250.00 DIAB FELIZ WO COMPL, TYPE II OR UNSPEC TY 04/06/2016 TABATHA AGUILA S RN CIRCULATING Ot V58.69 OTH MED,LT,CURRENT USE 04/06/2016 TABATHA AGUILA S RN CIRCULATING Ot 154.1 MALIGNANT NEOPL RECTUM 04/06/2016 TABATHA AGUILA S RN CIRCULATING Ot 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 04/06/2016 TABATHA AGUILA S RN CIRCULATING Ot 305.1 TOBACCO USE DISORDER 04/06/2016 TABATHA AGUILA S RN CIRCULATING Ot V15.3 HX OF IRRADIATION 04/06/2016 TABATHA AGUILA S RN CIRCULATING Ot V44.3 COLOSTOMY STATUS 04/06/2016 TABATHA AGUILA S RN CIRCULATING Ot V58.69 OTH MED,LT,CURRENT USE 04/06/2016 ADRIEN HILL N Ot 154.1 MALIGNANT NEOPL RECTUM 04/06/2016 MORENO GANDHI, COURTNEY Berrios Ot V72.84 EXAM PRE-OPERATIVE NOS 04/06/2016 MODESTO AGUILAJONATHON S RN CIRCULATING Ot 154.1 MALIGNANT NEOPL RECTUM 04/06/2016 TABATHA AGUILA S RN CIRCULATING Ot 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 04/06/2016 MODESTO AGUILAJONATHON S RN CIRCULATING Ot V15.3 HX OF IRRADIATION 04/06/2016 TABATHA AGUILA S RN CIRCULATING Ot V44.3 COLOSTOMY STATUS 04/06/2016 TABATHA AGUILA S RN CIRCULATING Ot V58.69 OTH MED,LT,CURRENT USE 04/06/2016 ADRIEN HILL N Ot 722.4 CERVICAL DISC DEGEN 04/06/2016 TABATHA AGUILA S RN CIRCULATING Ot 154.1 MALIGNANT NEOPL RECTUM 04/06/2016 TABATHA AGUILA S RN CIRCULATING Ot 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 04/06/2016 TABATHA AGUILA S RN CIRCULATING Ot V15.3 HX OF IRRADIATION 04/06/2016 TABATHA AGUILA S RN CIRCULATING Ot V44.3 COLOSTOMY STATUS 04/06/2016 TABATHA AGUILA S RN CIRCULATING Ot V58.69 OTH MED,LT,CURRENT USE 04/06/2016 TABATHA AGUILA S RN CIRCULATING Ot 154.1 MALIGNANT NEOPL RECTUM 04/06/2016 TABATHA AGUILA S RN CIRCULATING Ot 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 04/06/2016 TABATHA AGUILA S RN CIRCULATING Ot V15.3 HX OF IRRADIATION 04/06/2016 TABATHA AGUILA S RN CIRCULATING Ot V44.3 COLOSTOMY STATUS 04/06/2016 TABATHA AGUILA S RN CIRCULATING Ot V58.69 OTH MED,LT,CURRENT USE 04/06/2016 MODESTO AGUILAJONATHON S RN CIRCULATING Ot V58.81 FIT/ADJ VASCULAR CATHETER 04/06/2016 TABATHA AGUILA S RN CIRCULATING Ot V76.12 OTH SCREEN MAMMO-MALIGN NEOPLASM OF AIRAM 04/06/2016 MROENO GANDHI, COURTNEY Berrios Ot V72.84 EXAM PRE-OPERATIVE NOS 04/06/2016 TABATHA AGUILA S RN CIRCULATING Ot 154.1 MALIGNANT NEOPL RECTUM 04/06/2016 TABATHA AGUILA S RN CIRCULATING Ot 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 04/06/2016 TABATHA AGUILA S RN CIRCULATING Ot V15.3 HX OF IRRADIATION 04/06/2016 TABATHA AGUILA RN CIRCULATING Ot V44.3 COLOSTOMY STATUS 04/06/2016 TABATHA AGUILAP Ot V58.69 OT MED,LT,CURRENT USE 04/06/2016 TABATHA AGUILA RN CIRCULATING Ot V58.81 FIT/ADJ VASCULAR CATHETER 04/06/2016 TABATHA AGUILA RN CIRCULATING Ot C20 MALIGNANT NEOPLASM OF RECTUM 04/06/2016 TABATHA AGUILA RN CIRCULATING Ot 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 04/06/2016 TABATHA AGUILA RN CIRCULATING Ot Z79.899 OTHER [facility] (CURRENT) DRUG THERAPY 04/06/2016 TABATHA AGUILA RN CIRCULATING Ot Z92.3 PERSONAL HISTORY OF IRRADIATION 04/06/2016 TABATHA AGUILA RN CIRCULATING Ot Z93.3 COLOSTOMY STATUS 04/06/2016 TABATHA AGUILA RN CIRCULATING Ot Z12.31 ENCNTR SCREEN MAMMOGRAM FOR MALIGNANT NE 04/06/2016 TABATHA AGUILA RN CIRCULATING Ot C20 MALIGNANT NEOPLASM OF RECTUM 04/06/2016 TABATHA AGUILA RN CIRCULATING Ot 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 04/06/2016 TABATHA AGUILA RN CIRCULATING Ot R35.0 FREQUENCY OF MICTURITION 04/06/2016 TABATHA AGUILA RN CIRCULATING Ot Z79.899 OTHER [facility] (CURRENT) DRUG THERAPY 04/06/2016 TABATHA AGUILA RN CIRCULATING Ot Z92.3 PERSONAL HISTORY OF IRRADIATION 04/06/2016 AGUILATABATHA Rios RN CIRCULATING Ot Z93.3 COLOSTOMY STATUS 04/06/2016 ADRIEN HILL Ot C20 MALIGNANT NEOPLASM OF RECTUM 04/06/2016 ADRIEN HILL Ot 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 04/06/2016 ADRIEN HILL Ot Z45.2 ENCOUNTER FOR ADJUSTMENT AND MANAGEMENT 04/06/2016 ADRIEN HILL Ot 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 04/06/2016 ADRIEN HILL Ot Z92.3 PERSONAL HISTORY OF IRRADIATION 04/06/2016 ADRIEN HILL Ot Z93.3 COLOSTOMY STATUS 04/06/2016 ADRIEN HILL Ot C20 MALIGNANT NEOPLASM OF RECTUM 04/06/2016 ADRIEN HILL N Ot 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 04/06/2016 FLORYADRIEN GONZALES N Ot Z45.2 ENCOUNTER FOR ADJUSTMENT AND MANAGEMENT 04/06/2016 ADRIEN HILL N Ot 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 04/06/2016 ADRIEN HILL N Ot Z92.3 PERSONAL HISTORY OF IRRADIATION 04/06/2016 ADRIEN HILL N Ot Z93.3 COLOSTOMY STATUS 04/07/2016 ADRIEN HILL N Ot C20 MALIGNANT NEOPLASM OF RECTUM 04/07/2016 FLORYADRIEN GONZALES N Ot 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 04/07/2016 FLORYADRIEN GONZALES N Ot 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 04/07/2016 ADRIEN HILL N Ot Z92.3 PERSONAL HISTORY OF IRRADIATION 04/07/2016 ADRIEN HILL N Ot Z93.3 COLOSTOMY STATUS 06/02/2016 ADRIEN HILL N Ot C20 MALIGNANT NEOPLASM OF RECTUM 06/02/2016 ADRIEN HILL N Ot 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 06/02/2016 ADRIEN HILL N Ot 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 06/02/2016 ADRIEN HILL N Ot Z92.3 PERSONAL HISTORY OF IRRADIATION 06/02/2016 ADRIEN HILL N Ot Z93.3 COLOSTOMY STATUS 07/05/2016 ADRIEN HILL N Ot C20 MALIGNANT NEOPLASM OF RECTUM 07/05/2016 ADRIEN HILL N Ot 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 07/05/2016 ADRIEN HILL N Ot Z45.2 ENCOUNTER FOR ADJUSTMENT AND MANAGEMENT 07/05/2016 ADRIEN HILL N Ot 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 07/05/2016 ADRIEN HILL N Ot Z92.3 PERSONAL HISTORY OF IRRADIATION 07/05/2016 FLORYADRIEN GONZALES N Ot Z93.3 COLOSTOMY STATUS 07/06/2016 ADRIEN HILL N Ot C20 MALIGNANT NEOPLASM OF RECTUM 07/06/2016 FLORYADRIEN GONZALES N Ot 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 07/06/2016 ADRIEN HILL N Ot Z45.2 ENCOUNTER FOR ADJUSTMENT AND MANAGEMENT 07/06/2016 ADRIEN HILL N Ot Z79.899 OTHER [facility] (CURRENT) DRUG THERAPY 07/06/2016 ADRIEN HILL N Ot Z92.3 PERSONAL HISTORY OF IRRADIATION 07/06/2016 ADRIEN HILL N Ot Z93.3 COLOSTOMY STATUS 07/07/2016 ADRIEN HILL N Ot C20 MALIGNANT NEOPLASM OF RECTUM 07/07/2016 ADRIEN HILL N Ot 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 07/07/2016 ADRIEN HILL N Ot 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 07/07/2016 ADRIEN HILL N Ot Z92.3 PERSONAL HISTORY OF IRRADIATION 07/07/2016 ADRIEN HILL N Ot Z93.3 COLOSTOMY STATUS 07/11/2016 ADRIEN HILL N Ot C20 MALIGNANT NEOPLASM OF RECTUM 07/11/2016 ADRIEN HILL N Ot 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 07/11/2016 ADRIEN HILL N Ot Z45.2 ENCOUNTER FOR ADJUSTMENT AND MANAGEMENT 07/11/2016 ADRIEN HILL N Ot Z79.899 OTHER [facility] (CURRENT) DRUG THERAPY 07/11/2016 ADRIEN HILL N Ot Z92.3 PERSONAL HISTORY OF IRRADIATION 07/11/2016 ADRIEN HILL N Ot Z93.3 COLOSTOMY STATUS 08/27/2016 TABATHA AGUILA RN CIRCULATING Ot Z12.31 ENCNTR SCREEN MAMMOGRAM FOR MALIGNANT NE 09/12/2016 TABATHA AGUILA RN CIRCULATING Ot Z12.31 ENCNTR SCREEN MAMMOGRAM FOR MALIGNANT NE 09/13/2016 ADRIEN HILL N Ot C20 MALIGNANT NEOPLASM OF RECTUM 09/13/2016 ADRIEN HILL N Ot 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 09/13/2016 ADRIEN HILL N Ot Z79.899 OTHER [facility] (CURRENT) DRUG THERAPY 09/13/2016 ADRIEN HILL N Ot Z92.3 PERSONAL HISTORY OF IRRADIATION 09/13/2016 ADRIEN HILL N Ot Z93.3 COLOSTOMY STATUS 10/04/2016 ADRIEN HILL N Ot C20 MALIGNANT NEOPLASM OF RECTUM 10/04/2016 ADRIEN HILL N Ot 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 10/04/2016 ADRIEN HILL N Ot Z45.2 ENCOUNTER FOR ADJUSTMENT AND MANAGEMENT 10/04/2016 ADRIEN HILL N Ot Z79.899 OTHER [facility] (CURRENT) DRUG THERAPY 10/04/2016 ADRIEN HILL N Ot Z92.3 PERSONAL HISTORY OF IRRADIATION 10/04/2016 ADRIEN HILL N Ot Z93.3 COLOSTOMY STATUS 10/05/2016 ADRIEN HILL N Ot C20 MALIGNANT NEOPLASM OF RECTUM 10/05/2016 ADRIEN HILL N Ot 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 10/05/2016 ADRIEN HILL N Ot Z45.2 ENCOUNTER FOR ADJUSTMENT AND MANAGEMENT 10/05/2016 ADRIEN HILL N Ot Z79.899 OTHER [facility] (CURRENT) DRUG THERAPY 10/05/2016 ADRIEN HILL N Ot Z92.3 PERSONAL HISTORY OF IRRADIATION 10/05/2016 ADRIEN HILL N Ot Z93.3 COLOSTOMY STATUS 11/10/2016 ADRIEN HILL N Ot C20 MALIGNANT NEOPLASM OF RECTUM 11/10/2016 ADRIEN HILL N Ot 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 11/10/2016 ADRIEN HILL N Ot Z45.2 ENCOUNTER FOR ADJUSTMENT AND MANAGEMENT 11/10/2016 ADRIEN HILL N Ot 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 11/10/2016 ADRIEN HILL N Ot Z92.3 PERSONAL HISTORY OF IRRADIATION 11/10/2016 ADRIEN HILL N Ot Z93.3 COLOSTOMY STATUS 11/12/2016 ADRIEN HILL N Ot C20 MALIGNANT NEOPLASM OF RECTUM 11/12/2016 ADRIEN HILL N Ot 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 11/12/2016 ADRIEN HILL N Ot Z45.2 ENCOUNTER FOR ADJUSTMENT AND MANAGEMENT 11/12/2016 ADRIEN HILL N Ot Z79.899 OTHER [facility] (CURRENT) DRUG THERAPY 11/12/2016 ADRIEN HILL N Ot Z92.3 PERSONAL HISTORY OF IRRADIATION 11/12/2016 ADRIEN HILL N Ot Z93.3 COLOSTOMY STATUS 11/12/2016 ADRIEN HILL N Ot C20 MALIGNANT NEOPLASM OF RECTUM 11/12/2016 ADRIEN HILL N Ot 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 11/12/2016 ADRIEN HILL N Ot Z45.2 ENCOUNTER FOR ADJUSTMENT AND MANAGEMENT 11/12/2016 ADRIEN HILL N Ot Z79.899 OTHER [facility] (CURRENT) DRUG THERAPY 11/12/2016 ADRIEN HILL N Ot Z92.3 PERSONAL HISTORY OF IRRADIATION 11/12/2016 ADRIEN HILL N Ot Z93.3 COLOSTOMY STATUS 11/12/2016 ADRIEN HILL N Ot C20 MALIGNANT NEOPLASM OF RECTUM 11/12/2016 ADRIEN HILL N Ot 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 11/12/2016 ADRIEN HILL N Ot Z45.2 ENCOUNTER FOR ADJUSTMENT AND MANAGEMENT 11/12/2016 ADRIEN HILL N Ot 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 11/12/2016 ADRIEN HILL N Ot Z92.3 PERSONAL HISTORY OF IRRADIATION 11/12/2016 ADRIEN HILL N Ot Z93.3 COLOSTOMY STATUS 11/12/2016 ADRIEN HILL N Ot C20 MALIGNANT NEOPLASM OF RECTUM 11/12/2016 ADRIEN HILL N Ot 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 11/12/2016 ADRIEN HILL N Ot Z45.2 ENCOUNTER FOR ADJUSTMENT AND MANAGEMENT 11/12/2016 ADRIEN HILL N Ot 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 11/12/2016 ADRIEN HILL N Ot Z92.3 PERSONAL HISTORY OF IRRADIATION 11/12/2016 ADRIEN HILL N Ot Z93.3 COLOSTOMY STATUS 11/12/2016 ADRIEN HILL N Ot C20 MALIGNANT NEOPLASM OF RECTUM 11/12/2016 ADRIEN HILL N Ot 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 11/12/2016 ADRIEN HILL N Ot Z45.2 ENCOUNTER FOR ADJUSTMENT AND MANAGEMENT 11/12/2016 ADRIEN HILL N Ot Z79.899 OTHER [facility] (CURRENT) DRUG THERAPY 11/12/2016 ADRIEN HILL N Ot Z92.3 PERSONAL HISTORY OF IRRADIATION 11/12/2016 ADRIEN HILL N Ot Z93.3 COLOSTOMY STATUS 12/14/2016 ADRIEN HILL N Ot C20 MALIGNANT NEOPLASM OF RECTUM 12/14/2016 ADRIEN HILL N Ot 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 12/14/2016 ADRIEN HILL N Ot Z45.2 ENCOUNTER FOR ADJUSTMENT AND MANAGEMENT 12/14/2016 ADRIEN HILL Ot 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 12/14/2016 ADRIEN HILL Ot Z92.3 PERSONAL HISTORY OF IRRADIATION 12/14/2016 ADRIEN HILL Ot Z93.3 COLOSTOMY STATUS 12/25/2016 Ot V76.12 OTH SCREEN MAMMO- MALIGN NEOPLASM OF AIRAM 12/25/2016 Ot V72.84 EXAM PRE-OPERATIVE NOS 12/25/2016 Ot 627.1 POSTMENOPAUSAL BLEEDING 12/25/2016 Ot 154.1 MALIGNANT NEOPL RECTUM 12/25/2016 Ot 154.1 MALIGNANT NEOPL RECTUM 12/25/2016 Ot 154.1 MALIGNANT NEOPL RECTUM 12/25/2016 Ot 305.1 TOBACCO USE DISORDER 12/25/2016 TABATHA AGUILA RN CIRCULATING Ot 154.1 MALIGNANT NEOPL RECTUM 12/25/2016 TABATHA AGUILA RN CIRCULATING Ot 692.82 DERMATITIS DUE TO OTHER RADIATION 12/25/2016 TABATHA AGUILA RN CIRCULATING Ot 782.2 LOCAL SUPRFICIAL SWELLNG 12/25/2016 TABATHA AGUILA RN CIRCULATING Ot V15.3 HX OF IRRADIATION 12/25/2016 TABATHA AGUILA RN CIRCULATING Ot V15.82 HISTORY OF TOBACCO USE 12/25/2016 TABATHA AGUILAP Ot V58.69 OTH MED,LT,CURRENT USE 12/25/2016 TABATHA AGUILA RN CIRCULATING Ot V87.41 PERSONAL HISTORY OF ANTINEOPLASTIC CHEMO 12/25/2016 MORENO GANDHI, COURTNEY Berrios Ot 154.1 MALIGNANT NEOPL RECTUM 12/25/2016 MORENO GANDHI, COURTNEY Berrios Ot V72.84 EXAM PRE-OPERATIVE NOS 12/25/2016 TABATHA AGUILA RN CIRCULATING Ot 154.1 MALIGNANT NEOPL RECTUM 12/25/2016 TABATHA AGUILA RN CIRCULATING Ot V15.3 HX OF IRRADIATION 12/25/2016 TABATHA AGUILA RN CIRCULATING Ot V15.82 HISTORY OF TOBACCO USE 12/25/2016 TABATHA AGUILA RN CIRCULATING Ot V58.69 OTH MED,LT,CURRENT USE 12/25/2016 TABATHA AGUILA RN CIRCULATING Ot V87.41 PERSONAL HISTORY OF ANTINEOPLASTIC CHEMO 12/25/2016 Ot V72.84 EXAM PRE-OPERATIVE NOS 12/25/2016 Ot 627.1 POSTMENOPAUSAL BLEEDING 12/25/2016 Ot 154.1 MALIGNANT NEOPL RECTUM 12/25/2016 Ot 154.1 MALIGNANT NEOPL RECTUM 12/25/2016 Ot 154.1 MALIGNANT NEOPL RECTUM 12/25/2016 Ot 305.1 TOBACCO USE DISORDER 12/25/2016 TABATHA AGUILA RN CIRCULATING Ot 154.1 MALIGNANT NEOPL RECTUM 12/25/2016 TABATHA AGUILA RN CIRCULATING Ot 692.82 DERMATITIS DUE TO OTHER RADIATION 12/25/2016 TABATHA AGUILA RN CIRCULATING Ot 782.2 LOCAL SUPRFICIAL SWELLNG 12/25/2016 TABATHA AGUILA RN CIRCULATING Ot V15.3 HX OF IRRADIATION 12/25/2016 TABATHA AGUILA RN CIRCULATING Ot V15.82 HISTORY OF TOBACCO USE 12/25/2016 TABATHA AGUILAP Ot V58.69 OTH MED,LT,CURRENT USE 12/25/2016 TABATHA AGUILA RN CIRCULATING Ot V87.41 PERSONAL HISTORY OF ANTINEOPLASTIC CHEMO 12/25/2016 MORENO GANDHI, COURTNEY Berrios Ot 154.1 MALIGNANT NEOPL RECTUM 12/25/2016 MORENO GANDHI, COURTNEY Berrios Ot V72.84 EXAM PRE-OPERATIVE NOS 12/25/2016 MORENO GANDHI, COURTNEY Berrios Ot 154.1 MALIGNANT NEOPL RECTUM 12/25/2016 MORENO GANDHI, COURTNEY Berrios Ot V72.83 EXAM PRE-OPERATIVE NEC 12/25/2016 MORENO GANDHI, COURTNEY Berrios Ot V74.8 SCREEN-BACTERIAL DIS NEC 12/25/2016 TABATHA AGUILA RN CIRCULATING Ot 154.1 MALIGNANT NEOPL RECTUM 12/25/2016 TABATHA AGUILA RN CIRCULATING Ot V15.3 HX OF IRRADIATION 12/25/2016 TABATHA AGUILA RN CIRCULATING Ot V15.82 HISTORY OF TOBACCO USE 12/25/2016 TABATHA AGUILA RN CIRCULATING Ot V58.69 OTH MED,LT,CURRENT USE 12/25/2016 TABATHA AGUILA RN CIRCULATING Ot V87.41 PERSONAL HISTORY OF ANTINEOPLASTIC CHEMO 12/25/2016 Ot 154.1 MALIGNANT NEOPL RECTUM 12/25/2016 Ot V58.0 ENCOUNTER FOR RADIOTHERAPY 12/25/2016 MORENO GANDHI, COURTNEY Berrios Ot 154.1 MALIGNANT NEOPL RECTUM 12/25/2016 MORENO GANDHI, COURTNEY Berrios Ot V72.84 EXAM PRE-OPERATIVE NOS 12/25/2016 MORENO GANDHI, COURTNEY Berrios Ot V74.8 SCREEN-BACTERIAL DIS NEC 12/25/2016 TABATHA AGUILA RN CIRCULATING Ot 154.1 MALIGNANT NEOPL RECTUM 12/25/2016 TABATHA AGUILA RN CIRCULATING Ot 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 12/25/2016 TABATHA AGUILA RN CIRCULATING Ot 338.18 OTHER ACUTE POSTOPERATIVE PAIN 12/25/2016 TABATHA AGUILA RN CIRCULATING Ot V15.3 HX OF IRRADIATION 12/25/2016 TABATHA AGUILA RN CIRCULATING Ot V44.3 COLOSTOMY STATUS 12/25/2016 TABATHA AGUILA RN CIRCULATING Ot V58.69 OTH MED,LT,CURRENT USE 12/25/2016 TABATHA AGUILA RN CIRCULATING Ot V87.41 PERSONAL HISTORY OF ANTINEOPLASTIC CHEMO 12/25/2016 ADRIEN HILL N Ot 154.1 MALIGNANT NEOPL RECTUM 12/25/2016 MORENO GANDHI, COURTNEY Berrios Ot 154.1 MALIGNANT NEOPL RECTUM 12/25/2016 MORENO GANDHI, COURTNEY Berrios Ot V72.84 EXAM PRE-OPERATIVE NOS 12/25/2016 ADRIEN HILL N Ot 154.1 MALIGNANT NEOPL RECTUM 12/25/2016 ADRIEN HILL N Ot 154.1 MALIGNANT NEOPL RECTUM 12/25/2016 ADRIEN HILL Ot V58.69 OTH MED,LT,CURRENT USE 12/25/2016 TABATHA AGUILA RN CIRCULATING Ot 154.1 MALIGNANT NEOPL RECTUM 12/25/2016 TABATHA AGUILA RN CIRCULATING Ot 250.00 DIAB FELIZ WO COMPL, TYPE II OR UNSPEC TY 12/25/2016 TABATHA AGUILA S RN CIRCULATING Ot 300.00 ANXIETY STATE NOS 12/25/2016 TABATHA AGUILA RN CIRCULATING Ot 788.1 DYSURIA 12/25/2016 TABATHA AGUILA RN CIRCULATING Ot 788.41 URINARY FREQUENCY 12/25/2016 TABATHA AGUILA RN CIRCULATING Ot V58.69 OTH MED,LT,CURRENT USE 12/25/2016 ADRIEN HILL N Ot 154.1 MALIGNANT NEOPL RECTUM 12/25/2016 ADRIEN HILL Ot V58.69 OTH MED,LT,CURRENT USE 12/25/2016 TABATHA AGUILA RN CIRCULATING Ot 154.1 MALIGNANT NEOPL RECTUM 12/25/2016 TABATHA AGUILA RN CIRCULATING Ot 250.00 DIAB FELIZ WO COMPL, TYPE II OR UNSPEC TY 12/25/2016 TABATHA AGUILA RN CIRCULATING Ot V58.69 OTH MED,LT,CURRENT USE 12/25/2016 TABATHA AGUILA RN CIRCULATING Ot 154.1 MALIGNANT NEOPL RECTUM 12/25/2016 TABATHA AGUILA S RN CIRCULATING Ot 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 12/25/2016 TABATHA AGUILA RN CIRCULATING Ot 305.1 TOBACCO USE DISORDER 12/25/2016 TABATHA AGUILA RN CIRCULATING Ot V15.3 HX OF IRRADIATION 12/25/2016 TABATHA AGUILA RN CIRCULATING Ot V44.3 COLOSTOMY STATUS 12/25/2016 TABATHA AGUILAP Ot V58.69 OTH MED,LT,CURRENT USE 12/25/2016 ADRIEN HILL Ot 154.1 MALIGNANT NEOPL RECTUM 12/25/2016 MORENO GANDHI, COURTNEY Berrios Ot V72.84 EXAM PRE-OPERATIVE NOS 12/25/2016 TABATHA AGUILA RN CIRCULATING Ot 154.1 MALIGNANT NEOPL RECTUM 12/25/2016 TABATHA AGUILA RN CIRCULATING Ot 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 12/25/2016 TABATHA AGUILA RN CIRCULATING Ot V15.3 HX OF IRRADIATION 12/25/2016 TABATHA AGUILA RN CIRCULATING Ot V44.3 COLOSTOMY STATUS 12/25/2016 TABATHA AGUILA RN CIRCULATING Ot V58.69 OTH MED,LT,CURRENT USE 12/25/2016 ADRIEN HILL Ot 722.4 CERVICAL DISC DEGEN 12/25/2016 TABATHA AGUILA RN CIRCULATING Ot 154.1 MALIGNANT NEOPL RECTUM 12/25/2016 TABATHA AGUILA RN CIRCULATING Ot 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 12/25/2016 TABATHA AGUILA RN CIRCULATING Ot V15.3 HX OF IRRADIATION 12/25/2016 TABATHA AGUILA RN CIRCULATING Ot V44.3 COLOSTOMY STATUS 12/25/2016 TABATHA AGUILA RN CIRCULATING Ot V58.69 OTH MED,LT,CURRENT USE 12/25/2016 TABATHA AGUILA RN CIRCULATING Ot 154.1 MALIGNANT NEOPL RECTUM 12/25/2016 AGUILATABATHA Rios RN CIRCULATING Ot 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 12/25/2016 AGUILATABATHA Rios RN CIRCULATING Ot V15.3 HX OF IRRADIATION 12/25/2016 AGUILATABATHA Rios RN CIRCULATING Ot V44.3 COLOSTOMY STATUS 12/25/2016 [place] TABATHA Rios RN CIRCULATING Ot V58.69 OTH MED,LT,CURRENT USE 12/25/2016 [place] TABATHA Rios RN CIRCULATING Ot V58.81 FIT/ADJ VASCULAR CATHETER 12/25/2016 [place] TABATHA Rios RN CIRCULATING Ot V76.12 OTH SCREEN MAMMO-MALIGN NEOPLASM OF AIRAM 12/25/2016 MORENO GANDHI, COURTNEY Berrios Ot V72.84 EXAM PRE-OPERATIVE NOS 12/25/2016 [place] TABATHA Blanca RN CIRCULATING Ot 154.1 MALIGNANT NEOPL RECTUM 12/25/2016 [place] TABATHA Rios RN CIRCULATING Ot 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 12/25/2016 MODESTO AGUILAJONATHON Blanca RN CIRCULATING Ot V15.3 HX OF IRRADIATION 12/25/2016 AGUILA TABATHA Rios RN CIRCULATING Ot V44.3 COLOSTOMY STATUS 12/25/2016 [place] TABATHA Blanca KNIGHTP Ot V58.69 OTH MED,LT,CURRENT USE 12/25/2016 [place] TABATHA Rios RN CIRCULATING Ot V58.81 FIT/ADJ VASCULAR CATHETER 12/25/2016 TABATHA AGUILA RN CIRCULATING Ot C20 MALIGNANT NEOPLASM OF RECTUM 12/25/2016 TABATHA AGUILA RN CIRCULATING Ot 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 12/25/2016 [place] TABATHA Blanca RN CIRCULATING Ot Z79.899 OTHER [facility] (CURRENT) DRUG THERAPY 12/25/2016 MODESTO AGUILAJONATHON Blanca RN CIRCULATING Ot Z92.3 PERSONAL HISTORY OF IRRADIATION 12/25/2016 MODESTO AGUILAJONATHON Blanca RN CIRCULATING Ot Z93.3 COLOSTOMY STATUS 12/25/2016 [place] TABATHA Blanca RN CIRCULATING Ot Z12.31 ENCNTR SCREEN MAMMOGRAM FOR MALIGNANT NE 12/25/2016 TABATHA AGUILA RN CIRCULATING Ot C20 MALIGNANT NEOPLASM OF RECTUM 12/25/2016 TABATHA AGUILA RN CIRCULATING Ot 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 12/25/2016 TABATHA AGUILA RN CIRCULATING Ot R35.0 FREQUENCY OF MICTURITION 12/25/2016 TABATHA AGUILA RN CIRCULATING Ot 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 12/25/2016 MODESTO AGUILAJONATHON Rios RN CIRCULATING Ot Z92.3 PERSONAL HISTORY OF IRRADIATION 12/25/2016 MODESTO AGUILAJONATHON Rios RN CIRCULATING Ot Z93.3 COLOSTOMY STATUS 12/25/2016 MODESTO AGUILAJONATHON Blanca RN CIRCULATING Ot Z12.31 ENCNTR SCREEN MAMMOGRAM FOR MALIGNANT NE 12/25/2016 FLORY ADRIEN Griffiths Ot C20 MALIGNANT NEOPLASM OF RECTUM 12/25/2016 ADRIEN HILL Tunde Ot 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 12/25/2016 ADRIEN HILL Tunde Ot Z45.2 ENCOUNTER FOR ADJUSTMENT AND MANAGEMENT 12/25/2016 ADRIEN HILL Tunde Ot Z79.899 OTHER [facility] (CURRENT) DRUG THERAPY 12/25/2016 ADRIEN HILL Tunde Ot Z92.3 PERSONAL HISTORY OF IRRADIATION 12/25/2016 ADRIEN HILL Tunde Ot Z93.3 COLOSTOMY STATUS 12/25/2016 Ot V72.84 EXAM PRE-OPERATIVE NOS 12/25/2016 Ot 627.1 POSTMENOPAUSAL BLEEDING 12/25/2016 Ot 154.1 MALIGNANT NEOPL RECTUM 12/25/2016 Ot 154.1 MALIGNANT NEOPL RECTUM 12/25/2016 Ot 154.1 MALIGNANT NEOPL RECTUM 12/25/2016 Ot 305.1 TOBACCO USE DISORDER 12/25/2016 TABATHA AGUILA RN CIRCULATING Ot 154.1 MALIGNANT NEOPL RECTUM 12/25/2016 TABATHA AGUILA RN CIRCULATING Ot 692.82 DERMATITIS DUE TO OTHER RADIATION 12/25/2016 TABATHA AGUILA RN CIRCULATING Ot 782.2 LOCAL SUPRFICIAL SWELLNG 12/25/2016 TABATHA AGUILA RN CIRCULATING Ot V15.3 HX OF IRRADIATION 12/25/2016 TABATHA AGUILA RN CIRCULATING Ot V15.82 HISTORY OF TOBACCO USE 12/25/2016 TABATHA AGUILA RN CIRCULATING Ot V58.69 OTH MED,LT,CURRENT USE 12/25/2016 TABATHA AGUILA RN CIRCULATING Ot V87.41 PERSONAL HISTORY OF ANTINEOPLASTIC CHEMO 12/25/2016 MORENO GANDHI, COURTNEY Berrios Ot 154.1 MALIGNANT NEOPL RECTUM 12/25/2016 MORENO GANDHI, COURTNEY Berrios Ot V72.84 EXAM PRE-OPERATIVE NOS 12/25/2016 MORENO GANDHI, COURTNEY Berrios Ot 154.1 MALIGNANT NEOPL RECTUM 12/25/2016 MORENO GANDHI, COURTNEY Berrios Ot V72.83 EXAM PRE-OPERATIVE NEC 12/25/2016 COURTNEY MAYER MD Ot V74.8 SCREEN-BACTERIAL DIS NEC 12/25/2016 TABATHA AGUILA S RN CIRCULATING Ot 154.1 MALIGNANT NEOPL RECTUM 12/25/2016 TABATHA AGUILA S RN CIRCULATING Ot V15.3 HX OF IRRADIATION 12/25/2016 AGUILA, HILAH S RN CIRCULATING Ot V15.82 HISTORY OF TOBACCO USE 12/25/2016 TABATHA AGUILA S RN CIRCULATING Ot V58.69 OTH MED,LT,CURRENT USE 12/25/2016 MODESTO AGUILAAH S RN CIRCULATING Ot V87.41 PERSONAL HISTORY OF ANTINEOPLASTIC CHEMO 12/25/2016 Ot 154.1 MALIGNANT NEOPL RECTUM 12/25/2016 Ot V58.0 ENCOUNTER FOR RADIOTHERAPY 12/25/2016 MORENO GANDHI, COURTNEY Berrios Ot 154.1 MALIGNANT NEOPL RECTUM 12/25/2016 MORENO GANDHI, COURTNEY Berrios Ot V72.84 EXAM PRE-OPERATIVE NOS 12/25/2016 MORENO GANDHI, COURTNEY Berrios Ot V74.8 SCREEN-BACTERIAL DIS NEC 12/25/2016 TABATHA AGUILA S RN CIRCULATING Ot 154.1 MALIGNANT NEOPL RECTUM 12/25/2016 TABATHA AGUILA S RN CIRCULATING Ot 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 12/25/2016 TABATHA AGUILA S RN CIRCULATING Ot 338.18 OTHER ACUTE POSTOPERATIVE PAIN 12/25/2016 TABATHA AGUILA S RN CIRCULATING Ot V15.3 HX OF IRRADIATION 12/25/2016 MODESTO AGUILAAH S RN CIRCULATING Ot V44.3 COLOSTOMY STATUS 12/25/2016 TABATHA AGUILA S RN CIRCULATING Ot V58.69 OTH MED,LT,CURRENT USE 12/25/2016 MODESTO AGUILAAH S RN CIRCULATING Ot V87.41 PERSONAL HISTORY OF ANTINEOPLASTIC CHEMO 12/25/2016 ADRIEN HILL Ot 154.1 MALIGNANT NEOPL RECTUM 12/25/2016 COURTNEY MAYER MD Ot 154.1 MALIGNANT NEOPL RECTUM 12/25/2016 KENNETH MAYER MDVIER M Ot V72.84 EXAM PRE-OPERATIVE NOS 12/25/2016 ADRIEN HILL N Ot 154.1 MALIGNANT NEOPL RECTUM 12/25/2016 FLORYADRIEN GONZALES N Ot 154.1 MALIGNANT NEOPL RECTUM 12/25/2016 FLORY ADRIEN N Ot V58.69 OTH MED,LT,CURRENT USE 12/25/2016 TABATHA AGUILA S RN CIRCULATING Ot 154.1 MALIGNANT NEOPL RECTUM 12/25/2016 TABATHA AGUILA S RN CIRCULATING Ot 250.00 DIAB FELIZ WO COMPL, TYPE II OR UNSPEC TY 12/25/2016 TABATHA AGUILA S RN CIRCULATING Ot 300.00 ANXIETY STATE NOS 12/25/2016 TABATHA AGUILA S RN CIRCULATING Ot 788.1 DYSURIA 12/25/2016 TABATHA AGUILA S RN CIRCULATING Ot 788.41 URINARY FREQUENCY 12/25/2016 TABATHA AGUILA RN CIRCULATING Ot V58.69 OTH MED,LT,CURRENT USE 12/25/2016 ADRIEN HILL N Ot 154.1 MALIGNANT NEOPL RECTUM 12/25/2016 ADRIEN HILL N Ot V58.69 OTH MED,LT,CURRENT USE 12/25/2016 TABATHA AGUILA S RN CIRCULATING Ot 154.1 MALIGNANT NEOPL RECTUM 12/25/2016 TABATHA AGUILA S RN CIRCULATING Ot 250.00 DIAB FELIZ WO COMPL, TYPE II OR UNSPEC TY 12/25/2016 TABATHA AGUILA S RN CIRCULATING Ot V58.69 OTH MED,LT,CURRENT USE 12/25/2016 TABATHA AGUILA S RN CIRCULATING Ot 154.1 MALIGNANT NEOPL RECTUM 12/25/2016 TABATHA AGUILA RN CIRCULATING Ot 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 12/25/2016 TABATHA AGUILA S RN CIRCULATING Ot 305.1 TOBACCO USE DISORDER 12/25/2016 TABATHA AGUILA RN CIRCULATING Ot V15.3 HX OF IRRADIATION 12/25/2016 TABATHA AGUILA RN CIRCULATING Ot V44.3 COLOSTOMY STATUS 12/25/2016 TABATHA AGUILA S RN CIRCULATING Ot V58.69 OTH MED,LT,CURRENT USE 12/25/2016 ADRIEN HILL N Ot 154.1 MALIGNANT NEOPL RECTUM 12/25/2016 MORENO GANDHI, COURTNEY Berrios Ot V72.84 EXAM PRE-OPERATIVE NOS 12/25/2016 AGUILATABATHA RN CIRCULATING Ot 154.1 MALIGNANT NEOPL RECTUM 12/25/2016 AGUILATABATHA S RN CIRCULATING Ot 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 12/25/2016 AGUILATAABTHA S RN CIRCULATING Ot V15.3 HX OF IRRADIATION 12/25/2016 [place] TABATHA Rios RN CIRCULATING Ot V44.3 COLOSTOMY STATUS 12/25/2016 [place] TABATHA Rios RN CIRCULATING Ot V58.69 OTH MED,LT,CURRENT USE 12/25/2016 ADRIEN HILL Ot 722.4 CERVICAL DISC DEGEN 12/25/2016 [place] TABATHA S RN CIRCULATING Ot 154.1 MALIGNANT NEOPL RECTUM 12/25/2016 IMNGO TABATHA S RN CIRCULATING Ot 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 12/25/2016 [place] TABATHA S RN CIRCULATING Ot V15.3 HX OF IRRADIATION 12/25/2016 [place] TABATHA Rios RN CIRCULATING Ot V44.3 COLOSTOMY STATUS 12/25/2016 [place] TABATHA Rios RN CIRCULATING Ot V58.69 OTH MED,LT,CURRENT USE 12/25/2016 [place] TABATHA Rios RN CIRCULATING Ot 154.1 MALIGNANT NEOPL RECTUM 12/25/2016 [place] TABATHA S RN CIRCULATING Ot 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 12/25/2016 [place] TABATHA S RN CIRCULATING Ot V15.3 HX OF IRRADIATION 12/25/2016 [place] TABATHA S RN CIRCULATING Ot V44.3 COLOSTOMY STATUS 12/25/2016 [place] TABATHA Rios RN CIRCULATING Ot V58.69 OTH MED,LT,CURRENT USE 12/25/2016 AGUILA, TABATHA S RN CIRCULATING Ot V58.81 FIT/ADJ VASCULAR CATHETER 12/25/2016 [place] TABATHA S RN CIRCULATING Ot V76.12 OTH SCREEN MAMMO-MALIGN NEOPLASM OF AIRAM 12/25/2016 MORENO GANDHI, COURTNEY Berrios Ot V72.84 EXAM PRE-OPERATIVE NOS 12/25/2016 [place] TABATHA S RN CIRCULATING Ot 154.1 MALIGNANT NEOPL RECTUM 12/25/2016 TABATHA AGUILA S RN CIRCULATING Ot 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 12/25/2016 TABATHA AGUILA S RN CIRCULATING Ot V15.3 HX OF IRRADIATION 12/25/2016 TABATHA AGUILA RN CIRCULATING Ot V44.3 COLOSTOMY STATUS 12/25/2016 TABATHA AGUILAP Ot V58.69 OTH MED,LT,CURRENT USE 12/25/2016 TABATHA AGUILA RN CIRCULATING Ot V58.81 FIT/ADJ VASCULAR CATHETER 12/25/2016 TABATHA AGUILA RN CIRCULATING Ot C20 MALIGNANT NEOPLASM OF RECTUM 12/25/2016 TABATHA AGUILA RN CIRCULATING Ot 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 12/25/2016 TABATHA AGUILA RN CIRCULATING Ot 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 12/25/2016 TABATHA AGUILA RN CIRCULATING Ot Z92.3 PERSONAL HISTORY OF IRRADIATION 12/25/2016 TABATHA AGUILA RN CIRCULATING Ot Z93.3 COLOSTOMY STATUS 12/25/2016 TABATHA AGUILA RN CIRCULATING Ot Z12.31 ENCNTR SCREEN MAMMOGRAM FOR MALIGNANT NE 12/25/2016 TABATHA AGUILA RN CIRCULATING Ot C20 MALIGNANT NEOPLASM OF RECTUM 12/25/2016 TABATHA AGUILA RN CIRCULATING Ot 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 12/25/2016 TABATHA AGUILA RN CIRCULATING Ot R35.0 FREQUENCY OF MICTURITION 12/25/2016 TABATHA AGUILA RN CIRCULATING Ot Z79.899 OTHER [facility] (CURRENT) DRUG THERAPY 12/25/2016 TABATHA AGUILA RN CIRCULATING Ot Z92.3 PERSONAL HISTORY OF IRRADIATION 12/25/2016 AGUILATABATHA Rios RN CIRCULATING Ot Z93.3 COLOSTOMY STATUS 12/25/2016 AGUILATABATHA Rios RN CIRCULATING Ot Z12.31 ENCNTR SCREEN MAMMOGRAM FOR MALIGNANT NE 12/25/2016 ADRIEN HILL Ot C20 MALIGNANT NEOPLASM OF RECTUM 12/25/2016 ADRIEN HILL Ot 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 12/25/2016 ADRIEN HILL Ot Z45.2 ENCOUNTER FOR ADJUSTMENT AND MANAGEMENT 12/25/2016 ADRIEN HILL Ot 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 12/25/2016 ADRIEN HILL Ot Z92.3 PERSONAL HISTORY OF IRRADIATION 12/25/2016 ADRIEN HILL Ot Z93.3 COLOSTOMY STATUS 02/07/2017 ADRIEN HILL Ot C20 MALIGNANT NEOPLASM OF RECTUM 02/07/2017 ADRIEN HILL Ot 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 02/07/2017 ADRIEN HILL Ot Z45.2 ENCOUNTER FOR ADJUSTMENT AND MANAGEMENT 02/07/2017 ADRIEN HILL Ot 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 02/07/2017 ADRIEN HILL Ot Z92.3 PERSONAL HISTORY OF IRRADIATION 02/07/2017 ADRIEN HILL Ot Z93.3 COLOSTOMY STATUS 02/08/2017 ADRIEN HILL Ot C20 MALIGNANT NEOPLASM OF RECTUM 02/08/2017 ADRIEN HILL Ot 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 02/08/2017 ADRIEN HILL Ot Z45.2 ENCOUNTER FOR ADJUSTMENT AND MANAGEMENT 02/08/2017 ADRIEN HILL Ot 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 02/08/2017 ADRIEN HILL Ot Z92.3 PERSONAL HISTORY OF IRRADIATION 02/08/2017 ADRIEN HILL Ot Z93.3 COLOSTOMY STATUS 02/28/2017 MORENO GANDHI, COURTNEY Berrios Ot C20 MALIGNANT NEOPLASM OF RECTUM 02/28/2017 MORENO GANDHI, COURTNEY Berrios Ot Z01.818 ENCOUNTER FOR OTHER PREPROCEDURAL EXAMIN 03/01/2017 MORENO GANDHI, COURTNEY Berrios Ot C20 MALIGNANT NEOPLASM OF RECTUM 03/01/2017 MORENO GANDHI, COURTNEY Berrios Ot Z01.818 ENCOUNTER FOR OTHER PREPROCEDURAL EXAMIN 03/01/2017 Ot 627.1 POSTMENOPAUSAL BLEEDING 03/01/2017 Ot 154.1 MALIGNANT NEOPL RECTUM 03/01/2017 Ot 154.1 MALIGNANT NEOPL RECTUM 03/01/2017 Ot 154.1 MALIGNANT NEOPL RECTUM 03/01/2017 Ot 305.1 TOBACCO USE DISORDER 03/01/2017 TABATHA AGUILAP Ot 154.1 MALIGNANT NEOPL RECTUM 03/01/2017 TABATHA AGUILA RN CIRCULATING Ot 692.82 DERMATITIS DUE TO OTHER RADIATION 03/01/2017 TABATHA AGUILA RN CIRCULATING Ot 782.2 LOCAL SUPRFICIAL SWELLNG 03/01/2017 TABATHA AGUILA RN CIRCULATING Ot V15.3 HX OF IRRADIATION 03/01/2017 TABATHA AGUILA S RN CIRCULATING Ot V15.82 HISTORY OF TOBACCO USE 03/01/2017 AGUILATABATHA Rios S RN CIRCULATING Ot V58.69 OTH MED,LT,CURRENT USE 03/01/2017 AGUILATABATHA Rios S RN CIRCULATING Ot V87.41 PERSONAL HISTORY OF ANTINEOPLASTIC CHEMO 03/01/2017 MORENO GANDHI, COURTNEY Berrios Ot 154.1 MALIGNANT NEOPL RECTUM 03/01/2017 MORENO GANDHI, COURTNEY Berrios Ot V72.84 EXAM PRE-OPERATIVE NOS 03/01/2017 MORENO GANDHI, COURTNEY Berrios Ot 154.1 MALIGNANT NEOPL RECTUM 03/01/2017 MORENO GANDHI, COURTNEY Berrios Ot V72.83 EXAM PRE-OPERATIVE NEC 03/01/2017 MORENO GANDHI, COURTNEY Berrios Ot V74.8 SCREEN-BACTERIAL DIS NEC 03/01/2017 TABATHA AGUIAL S RN CIRCULATING Ot 154.1 MALIGNANT NEOPL RECTUM 03/01/2017 TABATHA AGUILA S RN CIRCULATING Ot V15.3 HX OF IRRADIATION 03/01/2017 TABATHA AGUILA S RN CIRCULATING Ot V15.82 HISTORY OF TOBACCO USE 03/01/2017 TABATHA AGUILA S RN CIRCULATING Ot V58.69 OTH MED,LT,CURRENT USE 03/01/2017 TABATHA AGUILA S RN CIRCULATING Ot V87.41 PERSONAL HISTORY OF ANTINEOPLASTIC CHEMO 03/01/2017 Ot 154.1 MALIGNANT NEOPL RECTUM 03/01/2017 Ot V58.0 ENCOUNTER FOR RADIOTHERAPY 03/01/2017 MORENO GANDHI, COURTNEY Berrios Ot 154.1 MALIGNANT NEOPL RECTUM 03/01/2017 MORENO GANDHI, COURTNEY Berrios Ot V72.84 EXAM PRE-OPERATIVE NOS 03/01/2017 MORENO GANDHI, COURTNEY Berrios Ot V74.8 SCREEN-BACTERIAL DIS NEC 03/01/2017 TABATHA AGUILA S RN CIRCULATING Ot 154.1 MALIGNANT NEOPL RECTUM 03/01/2017 TABATHA AGUILA RN CIRCULATING Ot 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 03/01/2017 TABATHA AGUILA S RN CIRCULATING Ot 338.18 OTHER ACUTE POSTOPERATIVE PAIN 03/01/2017 TABATHA AGUILA S RN CIRCULATING Ot V15.3 HX OF IRRADIATION 03/01/2017 TABATHA AGUILA RN CIRCULATING Ot V44.3 COLOSTOMY STATUS 03/01/2017 AGUILA, HILAH S RN CIRCULATING Ot V58.69 OTH MED,LT,CURRENT USE 03/01/2017 TABATHA AGUILA S RN CIRCULATING Ot V87.41 PERSONAL HISTORY OF ANTINEOPLASTIC CHEMO 03/01/2017 FLORY, DINORADHA N Ot 154.1 MALIGNANT NEOPL RECTUM 03/01/2017 MORENO GANDHI, COURTNEY Berrios Ot 154.1 MALIGNANT NEOPL RECTUM 03/01/2017 MORENO GANDHI, COURTNEY Berrios Ot V72.84 EXAM PRE-OPERATIVE NOS 03/01/2017 FLORY DINORADHA N Ot 154.1 MALIGNANT NEOPL RECTUM 03/01/2017 ADRIEN HILL N Ot 154.1 MALIGNANT NEOPL RECTUM 03/01/2017 ADRIEN HILL Tunde Ot V58.69 OTH MED,LT,CURRENT USE 03/01/2017 TABATHA AGUILA S RN CIRCULATING Ot 154.1 MALIGNANT NEOPL RECTUM 03/01/2017 TABATHA AGUILA S RN CIRCULATING Ot 250.00 DIAB FELIZ WO COMPL, TYPE II OR UNSPEC TY 03/01/2017 TABATHA AGUILA S RN CIRCULATING Ot 300.00 ANXIETY STATE NOS 03/01/2017 TABATHA AGUILA S RN CIRCULATING Ot 788.1 DYSURIA 03/01/2017 TABATHA AGUILA S RN CIRCULATING Ot 788.41 URINARY FREQUENCY 03/01/2017 TABATHA AGUILA S RN CIRCULATING Ot V58.69 OTH MED,LT,CURRENT USE 03/01/2017 FLORY ADRIEN N Ot 154.1 MALIGNANT NEOPL RECTUM 03/01/2017 ADRIEN HILL Tunde Ot V58.69 OTH MED,LT,CURRENT USE 03/01/2017 TABATHA AGUILA S RN CIRCULATING Ot 154.1 MALIGNANT NEOPL RECTUM 03/01/2017 TABATHA AGUILA S RN CIRCULATING Ot 250.00 DIAB FELIZ WO COMPL, TYPE II OR UNSPEC TY 03/01/2017 TABATHA AGUILA S RN CIRCULATING Ot V58.69 OTH MED,LT,CURRENT USE 03/01/2017 TABATHA AGUILA S RN CIRCULATING Ot 154.1 MALIGNANT NEOPL RECTUM 03/01/2017 TABATHA AGUILA S RN CIRCULATING Ot 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 03/01/2017 TABATHA AGUILA S RN CIRCULATING Ot 305.1 TOBACCO USE DISORDER 03/01/2017 TABATHA AGUILA S RN CIRCULATING Ot V15.3 HX OF IRRADIATION 03/01/2017 TABATHA AGUILA S RN CIRCULATING Ot V44.3 COLOSTOMY STATUS 03/01/2017 TABATHA AGUILA S RN CIRCULATING Ot V58.69 OTH MED,LT,CURRENT USE 03/01/2017 ADRIEN HILL N Ot 154.1 MALIGNANT NEOPL RECTUM 03/01/2017 MORENO GANDHI, COURTNEY Berrios Ot V72.84 EXAM PRE-OPERATIVE NOS 03/01/2017 TABATHA AGUILA S RN CIRCULATING Ot 154.1 MALIGNANT NEOPL RECTUM 03/01/2017 TABATHA AGUILA S RN CIRCULATING Ot 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 03/01/2017 TABATHA AGUILA S RN CIRCULATING Ot V15.3 HX OF IRRADIATION 03/01/2017 AGUILATABATHA Rios S RN CIRCULATING Ot V44.3 COLOSTOMY STATUS 03/01/2017 TABATHA AGUILA S RN CIRCULATING Ot V58.69 OTH MED,LT,CURRENT USE 03/01/2017 ADRIEN HILL N Ot 722.4 CERVICAL DISC DEGEN 03/01/2017 TABATHA AGUILA S RN CIRCULATING Ot 154.1 MALIGNANT NEOPL RECTUM 03/01/2017 TABATHA AGUILA S RN CIRCULATING Ot 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 03/01/2017 AGUILATABATHA Rios S RN CIRCULATING Ot V15.3 HX OF IRRADIATION 03/01/2017 TABATHA AGUILA S RN CIRCULATING Ot V44.3 COLOSTOMY STATUS 03/01/2017 TABATHA AGUILA S RN CIRCULATING Ot V58.69 OTH MED,LT,CURRENT USE 03/01/2017 TABATHA AGUILA S RN CIRCULATING Ot 154.1 MALIGNANT NEOPL RECTUM 03/01/2017 TABATHA AGUILA S RN CIRCULATING Ot 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 03/01/2017 TABATHA AGUILA S RN CIRCULATING Ot V15.3 HX OF IRRADIATION 03/01/2017 AGUILATABATHA Rios S RN CIRCULATING Ot V44.3 COLOSTOMY STATUS 03/01/2017 TABATHA AGUILA S RN CIRCULATING Ot V58.69 OTH MED,LT,CURRENT USE 03/01/2017 TABATHA AGUILA S RN CIRCULATING Ot V58.81 FIT/ADJ VASCULAR CATHETER 03/01/2017 TABATHA AGUILA RN CIRCULATING Ot V76.12 OTH SCREEN MAMMO-MALIGN NEOPLASM OF AIRAM 03/01/2017 MORENO GANDHI, COURTNEY Berrios Ot V72.84 EXAM PRE-OPERATIVE NOS 03/01/2017 AGUILATABATHA Rios RN CIRCULATING Ot 154.1 MALIGNANT NEOPL RECTUM 03/01/2017 [place] TABATHA Rios RN CIRCULATING Ot 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 03/01/2017 AGUILATABATHA Rios RN CIRCULATING Ot V15.3 HX OF IRRADIATION 03/01/2017 AGUILATABATHA Rios RN CIRCULATING Ot V44.3 COLOSTOMY STATUS 03/01/2017 AGUILATABATHA Rios RN CIRCULATING Ot V58.69 OT MED,LT,CURRENT USE 03/01/2017 TABATHA AGUILA RN CIRCULATING Ot V58.81 FIT/ADJ VASCULAR CATHETER 03/01/2017 [place] TABATHA Rios RN CIRCULATING Ot C20 MALIGNANT NEOPLASM OF RECTUM 03/01/2017 [place] TABATHA Rios RN CIRCULATING Ot 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 03/01/2017 [place] TABATHA Rios RN CIRCULATING Ot Z79.899 OTHER [facility] (CURRENT) DRUG THERAPY 03/01/2017 [place] TABATHA Rios RN CIRCULATING Ot Z92.3 PERSONAL HISTORY OF IRRADIATION 03/01/2017 AGUILA TABATHA Rios RN CIRCULATING Ot Z93.3 COLOSTOMY STATUS 03/01/2017 AGUILA TABATHA Rios RN CIRCULATING Ot Z12.31 ENCNTR SCREEN MAMMOGRAM FOR MALIGNANT NE 03/01/2017 [place] TABATHA Rios RN CIRCULATING Ot C20 MALIGNANT NEOPLASM OF RECTUM 03/01/2017 [place] TABATHA Rios RN CIRCULATING Ot 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 03/01/2017 [place] TABATHA Rios RN CIRCULATING Ot R35.0 FREQUENCY OF MICTURITION 03/01/2017 [place] TABATHA Rios RN CIRCULATING Ot Z79.899 OTHER [facility] (CURRENT) DRUG THERAPY 03/01/2017 AGUILATABATHA RN CIRCULATING Ot Z92.3 PERSONAL HISTORY OF IRRADIATION 03/01/2017 [place] TABATHA Rios RN CIRCULATING Ot Z93.3 COLOSTOMY STATUS 03/01/2017 MINGO TABATHA Rios RN CIRCULATING Ot Z12.31 ENCNTR SCREEN MAMMOGRAM FOR MALIGNANT NE 03/01/2017 ADRIEN HILL Ot C20 MALIGNANT NEOPLASM OF RECTUM 03/01/2017 ADRIEN HILL Ot 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 03/01/2017 ADRIEN HILL Ot Z45.2 ENCOUNTER FOR ADJUSTMENT AND MANAGEMENT 03/01/2017 ADRIEN HILL Ot 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 03/01/2017 ADRINE HILL Ot Z92.3 PERSONAL HISTORY OF IRRADIATION 03/01/2017 ADRIEN HILL Ot Z93.3 COLOSTOMY STATUS 03/02/2017 COURTNEY MAYER MD Ot C20 MALIGNANT NEOPLASM OF RECTUM 03/02/2017 COURTNEY MAYER MD Ot E11.9 TYPE 2 DIABETES MELLITUS WITHOUT COMPLIC 03/02/2017 COURTNEY MAYER MD Ot F17.210 NICOTINE DEPENDENCE, CIGARETTES, UNCOMPL 03/02/2017 COURTNEY MAYER MD Ot Z92.21 PERSONAL HISTORY OF ANTINEOPLASTIC CHEMO 03/02/2017 COURTNEY MAYER MD Ot Z92.3 PERSONAL HISTORY OF IRRADIATION 03/02/2017 COURTNEY MAYER MD Ot Z93.3 COLOSTOMY STATUS 03/06/2017 COURTNEY MAYER MD Ot C20 MALIGNANT NEOPLASM OF RECTUM 03/06/2017 COURTNEY MAYER MD Ot E11.9 TYPE 2 DIABETES MELLITUS WITHOUT COMPLIC 03/06/2017 COURTNEY MAYER MD Ot F17.210 NICOTINE DEPENDENCE, CIGARETTES, UNCOMPL 03/06/2017 COURTNEY MAYER MD Ot Z92.21 PERSONAL HISTORY OF ANTINEOPLASTIC CHEMO 03/06/2017 COURTNEY MAYER MD Ot Z92.3 PERSONAL HISTORY OF IRRADIATION 03/06/2017 COURTNEY MAYER MD Ot Z93.3 COLOSTOMY STATUS 03/06/2017 COURTNEY MAYER MD Ot C20 MALIGNANT NEOPLASM OF RECTUM 03/06/2017 COURTNEY MAYER MD Ot E11.9 TYPE 2 DIABETES MELLITUS WITHOUT COMPLIC 03/06/2017 COURTNEY MAYER MD Ot F17.210 NICOTINE DEPENDENCE, CIGARETTES, UNCOMPL 03/06/2017 COURTNEY MAYER MD Ot Z92.21 PERSONAL HISTORY OF ANTINEOPLASTIC CHEMO 03/06/2017 COURTNEY MAYER MD Ot Z92.3 PERSONAL HISTORY OF IRRADIATION 03/06/2017 COURTNEY MAYER MD Ot Z93.3 COLOSTOMY STATUS 08/03/2017 TABATHA AGUILA RN CIRCULATING Ot R05 COUGH 08/21/2017 AGUILA, HILAH S RN CIRCULATING Ot C18.9 MALIGNANT NEOPLASM OF COLON, UNSPECIFIED 08/21/2017 AGUILA TABATHA S RN CIRCULATING Ot C20 MALIGNANT NEOPLASM OF RECTUM 08/21/2017 MODESTO AGUILAJONATHON S RN CIRCULATING Ot K62.89 OTHER SPECIFIED DISEASES OF ANUS AND REC 08/21/2017 MINGO TABATHA S RN CIRCULATING Ot M79.89 OTHER SPECIFIED SOFT TISSUE DISORDERS 08/28/2017 ADRIEN HILL N Ot C20 MALIGNANT NEOPLASM OF RECTUM 08/28/2017 FLORY DINORADHA N Ot 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 08/28/2017 ADRIEN HILL N Ot M53.3 SACROCOCCYGEAL DISORDERS, NOT ELSEWHERE 08/28/2017 FLORY DINORADHA N Ot R05 COUGH 08/28/2017 FLORY DINORADHA N Ot 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 08/28/2017 FLORY ADRIEN N Ot Z92.21 PERSONAL HISTORY OF ANTINEOPLASTIC CHEMO 08/28/2017 FLORYADRIEN N Ot Z92.3 PERSONAL HISTORY OF IRRADIATION 08/28/2017 FLORYADRIEN N Ot Z93.3 COLOSTOMY STATUS 08/28/2017 MINGO TABATHA Rios RN CIRCULATING Ot R05 COUGH 08/29/2017 AGUILA TABATHA Rios RN CIRCULATING Ot C20 MALIGNANT NEOPLASM OF RECTUM 09/11/2017 AGUILA TABATHA Rios RN CIRCULATING Ot C18.9 MALIGNANT NEOPLASM OF COLON, UNSPECIFIED 09/11/2017 AGUILA TABATHA S RN CIRCULATING Ot C20 MALIGNANT NEOPLASM OF RECTUM 09/11/2017 AGUILA TABATHA Rios RN CIRCULATING Ot K62.89 OTHER SPECIFIED DISEASES OF ANUS AND REC 09/11/2017 MODESTO AGUILAJONATHON S RN CIRCULATING Ot M79.89 OTHER SPECIFIED SOFT TISSUE DISORDERS 09/19/2017 ADRIEN HILL N Ot C20 MALIGNANT NEOPLASM OF RECTUM 09/19/2017 ADRIEN HILL N Ot 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 09/19/2017 FLORY DINORADHA N Ot M53.3 SACROCOCCYGEAL DISORDERS, NOT ELSEWHERE 09/19/2017 FLORY DINORADHA N Ot R05 COUGH 09/19/2017 LFORY DINORADHA N Ot Z79.899 OTHER [facility]FP (CURRENT) DRUG THERAPY 09/19/2017 FLORY ADRIEN N Ot Z92.21 PERSONAL HISTORY OF ANTINEOPLASTIC CHEMO 09/19/2017 ADRIEN HILL N Ot Z92.3 PERSONAL HISTORY OF IRRADIATION 09/19/2017 ADRIEN HILL N Ot Z93.3 COLOSTOMY STATUS 09/19/2017 AGUILATABATHA Rios RN CIRCULATING Ot C20 MALIGNANT NEOPLASM OF RECTUM 10/01/2017 TABATHA AGUILA RN CIRCULATING Ot R05 COUGH 10/15/2017 TABATHA AGUILA RN CIRCULATING Ot C18.9 MALIGNANT NEOPLASM OF COLON, UNSPECIFIED 10/15/2017 AGUILA TABATHA Rios RN CIRCULATING Ot C20 MALIGNANT NEOPLASM OF RECTUM 10/15/2017 TABATHA AGUILA RN CIRCULATING Ot K62.89 OTHER SPECIFIED DISEASES OF ANUS AND REC 10/15/2017 AGUILATABATHA Rios RN CIRCULATING Ot M79.89 OTHER SPECIFIED SOFT TISSUE DISORDERS 10/31/2017 FLORYADRIEN N Ot C20 MALIGNANT NEOPLASM OF RECTUM 10/31/2017 FLORY DINORADHA N Ot 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 10/31/2017 FLORY DINORADHA Tunde Ot M53.3 SACROCOCCYGEAL DISORDERS, NOT ELSEWHERE 10/31/2017 ADRIEN HILL Tunde Ot R05 COUGH 10/31/2017 ADRIEN HILL N Ot Z79.899 OTHER [facility]FP (CURRENT) DRUG THERAPY 10/31/2017 ADRIEN HILL N Ot Z92.21 PERSONAL HISTORY OF ANTINEOPLASTIC CHEMO 10/31/2017 FLORY DINORADHA N Ot Z92.3 PERSONAL HISTORY OF IRRADIATION 10/31/2017 ADRIEN HILL N Ot Z93.3 COLOSTOMY STATUS 02/22/2018 FLORY ADRIEN N Ot C20 MALIGNANT NEOPLASM OF RECTUM 02/22/2018 FLORYDINORADHA N Ot 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 02/22/2018 FLORY DINORADHA N Ot M53.3 SACROCOCCYGEAL DISORDERS, NOT ELSEWHERE 02/22/2018 ADRIEN HILL N Ot 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 02/22/2018 FLORY, DINORADHA N Ot Z92.21 PERSONAL HISTORY OF ANTINEOPLASTIC CHEMO 02/22/2018 FLORY, DINORADHA N Ot Z92.3 PERSONAL HISTORY OF IRRADIATION 02/22/2018 FLORY, DINORADHA N Ot Z93.3 COLOSTOMY STATUS 03/19/2018 FLORY ADRIEN N Ot C20 MALIGNANT NEOPLASM OF RECTUM 03/19/2018 ADRIEN HILL N Ot 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 03/19/2018 ADRIEN HILL N Ot M53.3 SACROCOCCYGEAL DISORDERS, NOT ELSEWHERE 03/19/2018 ADRIEN HILL N Ot Z79.899 OTHER [facility] (CURRENT) DRUG THERAPY 03/19/2018 ADRIEN HILL N Ot Z92.21 PERSONAL HISTORY OF ANTINEOPLASTIC CHEMO 03/19/2018 ADRIEN HILL N Ot Z92.3 PERSONAL HISTORY OF IRRADIATION 03/19/2018 ADRIEN HILL N Ot Z93.3 COLOSTOMY STATUS 03/25/2018 FLORYADRIEN GONZALES N Ot C20 MALIGNANT NEOPLASM OF RECTUM 03/25/2018 FLORYADRIEN GONZALES N Ot 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 03/25/2018 FLORYADRIEN GONZALES N Ot M53.3 SACROCOCCYGEAL DISORDERS, NOT ELSEWHERE 03/25/2018 FLORYADRIEN GONZALES N Ot Z79.899 OTHER [facility] (CURRENT) DRUG THERAPY 03/25/2018 ADRIEN HILL N Ot Z92.21 PERSONAL HISTORY OF ANTINEOPLASTIC CHEMO 03/25/2018 ADRIEN HILL N Ot Z92.3 PERSONAL HISTORY OF IRRADIATION 03/25/2018 ADRIEN HILL N Ot Z93.3 COLOSTOMY STATUS 03/26/2018 ADRIEN HILL N Ot C20 MALIGNANT NEOPLASM OF RECTUM 03/26/2018 ADRIEN HILL N Ot 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 03/26/2018 ADRIEN HILL N Ot M53.3 SACROCOCCYGEAL DISORDERS, NOT ELSEWHERE 03/26/2018 ADRIEN HILL N Ot 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 03/26/2018 ADRIEN HILL N Ot Z92.21 PERSONAL HISTORY OF ANTINEOPLASTIC CHEMO 03/26/2018 FLORYADRIEN GONZALES N Ot Z92.3 PERSONAL HISTORY OF IRRADIATION 03/26/2018 ADRIEN HILL N Ot Z93.3 COLOSTOMY STATUS 07/12/2018 ADRIEN HILL N Ot C20 MALIGNANT NEOPLASM OF RECTUM 07/12/2018 ADRIEN HILL N Ot 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 07/12/2018 FLORYADRIEN GONZALES N Ot M53.3 SACROCOCCYGEAL DISORDERS, NOT ELSEWHERE 07/12/2018 ADRIEN HILL Ot Z79.899 OTHER [facility] (CURRENT) DRUG THERAPY 07/12/2018 ADRIEN HILL Ot Z92.21 PERSONAL HISTORY OF ANTINEOPLASTIC CHEMO 07/12/2018 ADRIEN HILL N Ot Z92.3 PERSONAL HISTORY OF IRRADIATION 07/12/2018 ADRIEN HILL N Ot Z93.3 COLOSTOMY STATUS 07/12/2018 MORENO GANDHI, COURTNEY Berrios Ot 154.1 MALIGNANT NEOPL RECTUM 07/12/2018 MORENO GANDHI, COURTNEY Berrios Ot V72.84 EXAM PRE-OPERATIVE NOS 07/12/2018 MORENO GANDHI, COURTNEY Berrios Ot V74.8 SCREEN-BACTERIAL DIS NEC 07/12/2018 TABATHA AGUILA RN CIRCULATING Ot 154.1 MALIGNANT NEOPL RECTUM 07/12/2018 TABATHA AGUILA RN CIRCULATING Ot 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 07/12/2018 TABATHA AGUILA S RN CIRCULATING Ot 338.18 OTHER ACUTE POSTOPERATIVE PAIN 07/12/2018 TABATHA AGUILA RN CIRCULATING Ot V15.3 HX OF IRRADIATION 07/12/2018 TABATHA AGUILA S RN CIRCULATING Ot V44.3 COLOSTOMY STATUS 07/12/2018 TABATHA AGUILA RN CIRCULATING Ot V58.69 OTH MED,LT,CURRENT USE 07/12/2018 TABATHA AGUILA S RN CIRCULATING Ot V87.41 PERSONAL HISTORY OF ANTINEOPLASTIC CHEMO 07/12/2018 ADRIEN HILL N Ot 154.1 MALIGNANT NEOPL RECTUM 07/12/2018 MORENO GANDHI, COURTNEY Berrios Ot 154.1 MALIGNANT NEOPL RECTUM 07/12/2018 MORENO GANDHI, COURTNEY Berrios Ot V72.84 EXAM PRE-OPERATIVE NOS 07/12/2018 ADRIEN HILL N Ot 154.1 MALIGNANT NEOPL RECTUM 07/12/2018 ADRIEN HILL N Ot 154.1 MALIGNANT NEOPL RECTUM 07/12/2018 ADRIEN HILL Ot V58.69 OTH MED,LT,CURRENT USE 07/12/2018 TABATHA AGUILA S RN CIRCULATING Ot 154.1 MALIGNANT NEOPL RECTUM 07/12/2018 TABATHA AGUILA S RN CIRCULATING Ot 250.00 DIAB FELIZ WO COMPL, TYPE II OR UNSPEC TY 07/12/2018 TABATHA AGUILA S RN CIRCULATING Ot 300.00 ANXIETY STATE NOS 07/12/2018 TABATHA AGUILA RN CIRCULATING Ot 788.1 DYSURIA 07/12/2018 TABATHA AGUILA RN CIRCULATING Ot 788.41 URINARY FREQUENCY 07/12/2018 TABATHA AGUILA RN CIRCULATING Ot V58.69 OTH MED,LT,CURRENT USE 07/12/2018 ADRIEN HILL Ot 154.1 MALIGNANT NEOPL RECTUM 07/12/2018 ADRIEN HILL Ot V58.69 OTH MED,LT,CURRENT USE 07/12/2018 TABATHA AGUILA RN CIRCULATING Ot 154.1 MALIGNANT NEOPL RECTUM 07/12/2018 TABATHA AGUILA RN CIRCULATING Ot 250.00 DIAB FELIZ WO COMPL, TYPE II OR UNSPEC TY 07/12/2018 TABATHA AGUILA RN CIRCULATING Ot V58.69 OTH MED,LT,CURRENT USE 07/12/2018 TABATHA AGUILA S RN CIRCULATING Ot 154.1 MALIGNANT NEOPL RECTUM 07/12/2018 TABATHA AGUILA RN CIRCULATING Ot 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 07/12/2018 TABATHA AGUILA RN CIRCULATING Ot 305.1 TOBACCO USE DISORDER 07/12/2018 TABATAH AGUILA RN CIRCULATING Ot V15.3 HX OF IRRADIATION 07/12/2018 TABATHA AGUILA RN CIRCULATING Ot V44.3 COLOSTOMY STATUS 07/12/2018 TABATHA AGUILA RN CIRCULATING Ot V58.69 OTH MED,LT,CURRENT USE 07/12/2018 ADRIEN HILL Ot 154.1 MALIGNANT NEOPL RECTUM 07/12/2018 MORENO GANDHI, COURTNEY Berrios Ot V72.84 EXAM PRE-OPERATIVE NOS 07/12/2018 TABATHA AGUILA RN CIRCULATING Ot 154.1 MALIGNANT NEOPL RECTUM 07/12/2018 TABATHA AGUILA RN CIRCULATING Ot 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 07/12/2018 TABATHA AGUILA RN CIRCULATING Ot V15.3 HX OF IRRADIATION 07/12/2018 TABATHA AGUILA RN CIRCULATING Ot V44.3 COLOSTOMY STATUS 07/12/2018 TABATHA AGUILA RN CIRCULATING Ot V58.69 OTH MED,LT,CURRENT USE 07/12/2018 ADRIEN HILL Ot 722.4 CERVICAL DISC DEGEN 07/12/2018 TABATHA AGUILA S RN CIRCULATING Ot 154.1 MALIGNANT NEOPL RECTUM 07/12/2018 AGUILATABATHA Rios RN CIRCULATING Ot 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 07/12/2018 AGUILA, MODESTOJONATHON Rios RN CIRCULATING Ot V15.3 HX OF IRRADIATION 07/12/2018 AGUILATABATHA Rios RN CIRCULATING Ot V44.3 COLOSTOMY STATUS 07/12/2018 TABATHA AGUILA Blanca RN CIRCULATING Ot V58.69 OTH MED,LT,CURRENT USE 07/12/2018 AGUILA, MODESTOJONATHON Blanca RN CIRCULATING Ot 154.1 MALIGNANT NEOPL RECTUM 07/12/2018 AGUILATABATHA Rios RN CIRCULATING Ot 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 07/12/2018 MINGO TABATHA Rios RN CIRCULATING Ot V15.3 HX OF IRRADIATION 07/12/2018 MODESTO AGUILAJONATHON Blanca KNIGHTP Ot V44.3 COLOSTOMY STATUS 07/12/2018 MODESTO AGUILAJONATHON Blanca MORROW Ot V58.69 OTH MED,LT,CURRENT USE 07/12/2018 TABATHA AGUILA RN CIRCULATING Ot V58.81 FIT/ADJ VASCULAR CATHETER 07/12/2018 TABATHA AGUILA RN CIRCULATING Ot V76.12 OTH SCREEN MAMMO-MALIGN NEOPLASM OF AIRAM 07/12/2018 MORENO GANDHI, COURTNEY Berrios Ot V72.84 EXAM PRE-OPERATIVE NOS 07/12/2018 TABATHA AGUILA RN CIRCULATING Ot 154.1 MALIGNANT NEOPL RECTUM 07/12/2018 TABATHA AGUILA RN CIRCULATING Ot 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 07/12/2018 TABATHA AGUILAP Ot V15.3 HX OF IRRADIATION 07/12/2018 TABATHA AGUILA RN CIRCULATING Ot V44.3 COLOSTOMY STATUS 07/12/2018 TABATHA AGUILAP Ot V58.69 OTH MED,LT,CURRENT USE 07/12/2018 TABATHA AGUILA RN CIRCULATING Ot V58.81 FIT/ADJ VASCULAR CATHETER 07/12/2018 TABATHA AGUILA RN CIRCULATING Ot C20 MALIGNANT NEOPLASM OF RECTUM 07/12/2018 TABATHA AGUILA RN CIRCULATING Ot 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 07/12/2018 TABATHA AGUILA RN CIRCULATING Ot Z79.899 OTHER [facility] (CURRENT) DRUG THERAPY 07/12/2018 TABATHA AGUILA RN CIRCULATING Ot Z92.3 PERSONAL HISTORY OF IRRADIATION 07/12/2018 TABATHA AGUILA RN CIRCULATING Ot Z93.3 COLOSTOMY STATUS 07/12/2018 TABATHA AGUILA RN CIRCULATING Ot Z12.31 ENCNTR SCREEN MAMMOGRAM FOR MALIGNANT NE 07/12/2018 TABATHA AGUILA RN CIRCULATING Ot C20 MALIGNANT NEOPLASM OF RECTUM 07/12/2018 TABATHA AGUILA RN CIRCULATING Ot 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 07/12/2018 TABATHA AGUILA RN CIRCULATING Ot R35.0 FREQUENCY OF MICTURITION 07/12/2018 TABATHA AGUILA RN CIRCULATING Ot Z79.899 OTHER [facility] (CURRENT) DRUG THERAPY 07/12/2018 TABATHA AGUILA RN CIRCULATING Ot Z92.3 PERSONAL HISTORY OF IRRADIATION 07/12/2018 TABATHA AGUILA RN CIRCULATING Ot Z93.3 COLOSTOMY STATUS 07/12/2018 TABATHA AGUILA RN CIRCULATING Ot Z12.31 ENCNTR SCREEN MAMMOGRAM FOR MALIGNANT NE 07/12/2018 TABATHA AGUILA RN CIRCULATING Ot R05 COUGH 07/12/2018 TABATHA AGUILA RN CIRCULATING Ot C18.9 MALIGNANT NEOPLASM OF COLON, UNSPECIFIED 07/12/2018 TABATHA AGUILA RN CIRCULATING Ot C20 MALIGNANT NEOPLASM OF RECTUM 07/12/2018 TABATHA AGUILA RN CIRCULATING Ot K62.89 OTHER SPECIFIED DISEASES OF ANUS AND REC 07/12/2018 TABATHA AGUILA RN CIRCULATING Ot M79.89 OTHER SPECIFIED SOFT TISSUE DISORDERS 07/12/2018 AGUILA TABATHA Rios RN CIRCULATING Ot C20 MALIGNANT NEOPLASM OF RECTUM 07/12/2018 ADRIEN HILL Ot C20 MALIGNANT NEOPLASM OF RECTUM 07/12/2018 ADRIEN HILL Ot 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 07/12/2018 ADRIEN HILL Ot M53.3 SACROCOCCYGEAL DISORDERS, NOT ELSEWHERE 07/12/2018 ADRIEN HILL Ot Z79.899 OTHER [facility] (CURRENT) DRUG THERAPY 07/12/2018 ADRIEN HILL Ot Z92.21 PERSONAL HISTORY OF ANTINEOPLASTIC CHEMO 07/12/2018 ADRIEN HILL Ot Z92.3 PERSONAL HISTORY OF IRRADIATION 07/12/2018 ADRIEN HILL Ot Z93.3 COLOSTOMY STATUS 09/12/2018 ADRIEN HILL N Ot 154.1 MALIGNANT NEOPL RECTUM 09/12/2018 FLORY ADRIEN Griffiths Ot V58.69 OTH MED,LT,CURRENT USE 09/12/2018 TABATHA AGUILA S RN CIRCULATING Ot 154.1 MALIGNANT NEOPL RECTUM 09/12/2018 TABATHA AGUILA S RN CIRCULATING Ot 250.00 DIAB FELIZ WO COMPL, TYPE II OR UNSPEC TY 09/12/2018 TABATHA AGUILA S RN CIRCULATING Ot 300.00 ANXIETY STATE NOS 09/12/2018 TABATHA AGUILA S RN CIRCULATING Ot 788.1 DYSURIA 09/12/2018 TABATHA AGUILA S RN CIRCULATING Ot 788.41 URINARY FREQUENCY 09/12/2018 TABATHA AGUILA RN CIRCULATING Ot V58.69 OTH MED,LT,CURRENT USE 09/12/2018 ADRIEN HILL N Ot 154.1 MALIGNANT NEOPL RECTUM 09/12/2018 ADRIEN HILL Ot V58.69 OTH MED,LT,CURRENT USE 09/12/2018 TABATHA AGUILA S RN CIRCULATING Ot 154.1 MALIGNANT NEOPL RECTUM 09/12/2018 TABATHA AGUILA S RN CIRCULATING Ot 250.00 DIAB FELIZ WO COMPL, TYPE II OR UNSPEC TY 09/12/2018 TABATHA AGUILA RN CIRCULATING Ot V58.69 OTH MED,LT,CURRENT USE 09/12/2018 TABATHA AGUILA S RN CIRCULATING Ot 154.1 MALIGNANT NEOPL RECTUM 09/12/2018 TABATHA AGUILA S RN CIRCULATING Ot 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 09/12/2018 TABATHA AGUILA S RN CIRCULATING Ot 305.1 TOBACCO USE DISORDER 09/12/2018 TABATHA AGUILA RN CIRCULATING Ot V15.3 HX OF IRRADIATION 09/12/2018 TABATHA AGUILA S RN CIRCULATING Ot V44.3 COLOSTOMY STATUS 09/12/2018 TABATHA AGUILA S RN CIRCULATING Ot V58.69 OTH MED,LT,CURRENT USE 09/12/2018 ADRIEN HILL N Ot 154.1 MALIGNANT NEOPL RECTUM 09/12/2018 MORENO GANDHI, COURTNEY Berrios Ot V72.84 EXAM PRE-OPERATIVE NOS 09/12/2018 TABATHA AGUILA S RN CIRCULATING Ot 154.1 MALIGNANT NEOPL RECTUM 09/12/2018 TABATHA AGUILA S RN CIRCULATING Ot 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 09/12/2018 MODESTO AGUILAJONATHON Blanca RN CIRCULATING Ot V15.3 HX OF IRRADIATION 09/12/2018 TABATHA AGUILA RN CIRCULATING Ot V44.3 COLOSTOMY STATUS 09/12/2018 MINGO TABATHA Blanca KNIGHTP Ot V58.69 OTH MED,LT,CURRENT USE 09/12/2018 ADRIEN HILL Ot 722.4 CERVICAL DISC DEGEN 09/12/2018 TABATHA AGUILA RN CIRCULATING Ot 154.1 MALIGNANT NEOPL RECTUM 09/12/2018 TABATHA AGUILA RN CIRCULATING Ot 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 09/12/2018 TABATHA AGUILA RN CIRCULATING Ot V15.3 HX OF IRRADIATION 09/12/2018 TABATHA AGUILAP Ot V44.3 COLOSTOMY STATUS 09/12/2018 TABATHA AGUILAP Ot V58.69 OTH MED,LT,CURRENT USE 09/12/2018 TABATHA AGUILA RN CIRCULATING Ot 154.1 MALIGNANT NEOPL RECTUM 09/12/2018 TABATHA AGUILA RN CIRCULATING Ot 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 09/12/2018 TABATHA AGUILA RN CIRCULATING Ot V15.3 HX OF IRRADIATION 09/12/2018 TABATHA AGUILAP Ot V44.3 COLOSTOMY STATUS 09/12/2018 TABATHA AGUILAP Ot V58.69 OTH MED,LT,CURRENT USE 09/12/2018 TABATHA AGUILA RN CIRCULATING Ot V58.81 FIT/ADJ VASCULAR CATHETER 09/12/2018 TABATHA AGUILAP Ot V76.12 OTH SCREEN MAMMO-MALIGN NEOPLASM OF AIRAM 09/12/2018 MORENO GANDHI, COURTNEY Berrios Ot V72.84 EXAM PRE-OPERATIVE NOS 09/12/2018 TABATHA AGUILA RN CIRCULATING Ot 154.1 MALIGNANT NEOPL RECTUM 09/12/2018 TABATHA AGUILA RN CIRCULATING Ot 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 09/12/2018 TABATHA AGUILA RN CIRCULATING Ot V15.3 HX OF IRRADIATION 09/12/2018 TABATHA AGUILA RN CIRCULATING Ot V44.3 COLOSTOMY STATUS 09/12/2018 TABATHA AGUILA RN CIRCULATING Ot V58.69 [facility] MED,LT,CURRENT USE 09/12/2018 TABATHA AGUILA RN CIRCULATING Ot V58.81 FIT/ADJ VASCULAR CATHETER 09/12/2018 TABATHA AGUILA RN CIRCULATING Ot C20 MALIGNANT NEOPLASM OF RECTUM 09/12/2018 TABATHA AGUILA RN CIRCULATING Ot 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 09/12/2018 TABATHA AGUILA RN CIRCULATING Ot 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 09/12/2018 TABATHA AGUILA RN CIRCULATING Ot Z92.3 PERSONAL HISTORY OF IRRADIATION 09/12/2018 TABATHA AGUILA RN CIRCULATING Ot Z93.3 COLOSTOMY STATUS 09/12/2018 TABATHA AGUILA RN CIRCULATING Ot Z12.31 ENCNTR SCREEN MAMMOGRAM FOR MALIGNANT NE 09/12/2018 TABATHA AGUILA RN CIRCULATING Ot C20 MALIGNANT NEOPLASM OF RECTUM 09/12/2018 TABATHA AGUILA RN CIRCULATING Ot 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 09/12/2018 TABATHA AGUILA RN CIRCULATING Ot R35.0 FREQUENCY OF MICTURITION 09/12/2018 TABATHA AGUILA RN CIRCULATING Ot Z79.899 OTHER [facility] (CURRENT) DRUG THERAPY 09/12/2018 TABATHA AGUILA RN CIRCULATING Ot Z92.3 PERSONAL HISTORY OF IRRADIATION 09/12/2018 TABATHA AGUILA RN CIRCULATING Ot Z93.3 COLOSTOMY STATUS 09/12/2018 TABATHA AGUILA RN CIRCULATING Ot Z12.31 ENCNTR SCREEN MAMMOGRAM FOR MALIGNANT NE 09/12/2018 TABATHA AGUILA RN CIRCULATING Ot R05 COUGH 09/12/2018 TABATHA AGUILA RN CIRCULATING Ot C18.9 MALIGNANT NEOPLASM OF COLON, UNSPECIFIED 09/12/2018 TABATHA AGUILA RN CIRCULATING Ot C20 MALIGNANT NEOPLASM OF RECTUM 09/12/2018 AGUILATABATHA Rios RN CIRCULATING Ot K62.89 OTHER SPECIFIED DISEASES OF ANUS AND REC 09/12/2018 TABATHA AGUILA RN CIRCULATING Ot M79.89 OTHER SPECIFIED SOFT TISSUE DISORDERS 09/12/2018 AGUILATABATHA Rios RN CIRCULATING Ot C20 MALIGNANT NEOPLASM OF RECTUM 10/10/2018 ADRIEN HILL Ot C20 MALIGNANT NEOPLASM OF RECTUM 10/10/2018 FLORY, BOBAN N Ot 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 10/10/2018 ADRIEN HILL N Ot E11.9 TYPE 2 DIABETES MELLITUS WITHOUT COMPLIC 10/10/2018 ADRIEN HILL N Ot F17.210 NICOTINE DEPENDENCE, CIGARETTES, UNCOMPL 10/10/2018 ADRIEN HILL N Ot M53.3 SACROCOCCYGEAL DISORDERS, NOT ELSEWHERE 10/10/2018 ADRIEN HILL N Ot Z79.899 OTHER [facility] (CURRENT) DRUG THERAPY 10/10/2018 ADRIEN HILL N Ot Z92.21 PERSONAL HISTORY OF ANTINEOPLASTIC CHEMO 10/10/2018 ADRIEN HILL N Ot Z92.3 PERSONAL HISTORY OF IRRADIATION 10/10/2018 ADRIEN HILL N Ot Z93.3 COLOSTOMY STATUS 12/11/2018 ADRIEN HILL N Ot C20 MALIGNANT NEOPLASM OF RECTUM 12/11/2018 ADRIEN HILL N Ot 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 12/11/2018 ADRIEN HILL N Ot E11.9 TYPE 2 DIABETES MELLITUS WITHOUT COMPLIC 12/11/2018 ADRIEN HILL N Ot F17.210 NICOTINE DEPENDENCE, CIGARETTES, UNCOMPL 12/11/2018 ADRIEN HILL N Ot M53.3 SACROCOCCYGEAL DISORDERS, NOT ELSEWHERE 12/11/2018 ADRIEN HILL N Ot 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 12/11/2018 ADRIEN HILL N Ot Z92.21 PERSONAL HISTORY OF ANTINEOPLASTIC CHEMO 12/11/2018 ADRIEN HILL N Ot Z92.3 PERSONAL HISTORY OF IRRADIATION 12/11/2018 ADRIEN HILL N Ot Z93.3 COLOSTOMY STATUS 12/12/2018 ADRIEN HILL N Ot C20 MALIGNANT NEOPLASM OF RECTUM 12/12/2018 ADRIEN HILL N Ot 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 12/12/2018 ADRIEN HILL N Ot E11.9 TYPE 2 DIABETES MELLITUS WITHOUT COMPLIC 12/12/2018 ADRIEN HILL N Ot F17.210 NICOTINE DEPENDENCE, CIGARETTES, UNCOMPL 12/12/2018 ADRIEN HILL N Ot M53.3 SACROCOCCYGEAL DISORDERS, NOT ELSEWHERE 12/12/2018 ADRIEN HILL N Ot Z79.899 OTHER [facility] (CURRENT) DRUG THERAPY 12/12/2018 ADRIEN HILL N Ot Z92.21 PERSONAL HISTORY OF ANTINEOPLASTIC CHEMO 12/12/2018 ADRIEN HILL N Ot Z92.3 PERSONAL HISTORY OF IRRADIATION 12/12/2018 ADRIEN HILL N Ot Z93.3 COLOSTOMY STATUS 12/17/2018 ADRIEN HILL N Ot C20 MALIGNANT NEOPLASM OF RECTUM 12/17/2018 ADRIEN HILL N Ot 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 12/17/2018 ADRIEN HILL N Ot E11.9 TYPE 2 DIABETES MELLITUS WITHOUT COMPLIC 12/17/2018 ADRIEN HILL N Ot F17.210 NICOTINE DEPENDENCE, CIGARETTES, UNCOMPL 12/17/2018 ADRIEN HILL N Ot M53.3 SACROCOCCYGEAL DISORDERS, NOT ELSEWHERE 12/17/2018 ADRIEN HILL N Ot Z79.899 OTHER [facility] (CURRENT) DRUG THERAPY 12/17/2018 ADRIEN HILL N Ot Z92.21 PERSONAL HISTORY OF ANTINEOPLASTIC CHEMO 12/17/2018 ADRIEN HILL N Ot Z92.3 PERSONAL HISTORY OF IRRADIATION 12/17/2018 ADRIEN HILL N Ot Z93.3 COLOSTOMY STATUS 01/15/2019 ADRIEN HILL N Ot C20 MALIGNANT NEOPLASM OF RECTUM 01/15/2019 ADRIEN HILL N Ot 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 01/15/2019 ADRIEN HILL N Ot E11.9 TYPE 2 DIABETES MELLITUS WITHOUT COMPLIC 01/15/2019 ADRIEN HILL N Ot F17.210 NICOTINE DEPENDENCE, CIGARETTES, UNCOMPL 01/15/2019 ADRIEN HILL N Ot M53.3 SACROCOCCYGEAL DISORDERS, NOT ELSEWHERE 01/15/2019 ADRIEN HILL N Ot 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 01/15/2019 ADRIEN HILL N Ot Z92.21 PERSONAL HISTORY OF ANTINEOPLASTIC CHEMO 01/15/2019 ADRIEN HILL N Ot Z92.3 PERSONAL HISTORY OF IRRADIATION 01/15/2019 ADRIEN HILL N Ot Z93.3 COLOSTOMY STATUS 01/15/2019 PEDRO BRAUN DO Ot Z01.818 ENCOUNTER FOR OTHER PREPROCEDURAL EXAMIN 01/15/2019 PEDRO BRAUN DO Ot Z01.818 ENCOUNTER FOR OTHER PREPROCEDURAL EXAMIN 01/17/2019 PEDRO BRAUN DO Ot Z01.818 ENCOUNTER FOR OTHER PREPROCEDURAL EXAMIN Procedures Code Description [place] [address] UA W/ CULTURE IF INDICATED 06/27/2012 Obstetric Sanjuana Benson 06/28/2012 05049 STOOL FOR POLYS & LEUKOCYTES 06/29/2012 GENER MORENO COURTNEY 07/01/2012 66018 FATS/LIPIDS FECES, QUAL 07/01/2012 93053 ROUTINE VENIPUNCTURE 07/15/2012 37782 MICRO ALBUMIN-IN HOUSE 07/15/2012 70231 A1C (IN-HOUSE) 07/15/2012 47873 CBC 07/15/2012 91434 CMP 07/15/2012 0835996 GFR CALC (RESULT ONLY) 07/15/2012 79096 CULTURE STOOL 07/18/2012 06996 STOOL FOR O & P 07/18/2012 14269 US PELVIC COMPL (REFLEX CPT- 24540) 07/26/2012 05654 PAP SMEAR 07/26/2012 Q0091 PAP SMEAR OBTAIN SMEAR 07/26/2012 29760 US PELVIC COMPL (REFLEX CPT- 68028) 07/29/2012 68496 GC/CHLAM PROBE (STATE) 07/29/2012 52156 TRICHOMONAS (IN-HOUSE) 07/29/2012 22587 PAP SMEAR 07/29/2012 Q0091 PAP SMEAR OBTAIN SMEAR 07/29/2012 82889 CULTURE UROGENITAL 07/29/2012 Medical O Adrien Hill 08/19/2012 38.93 VENOUS CATHETERIZATION NEC 12/18/2012 48.43 OPEN PULL-THROUGH RESECTION OF RECTUM 12/18/2012 86.3 OTHER LOCAL DESTRUC SKIN 12/18/2012 99.15 PARENTERAL INFUSION OF CONCENTRATED NUT. 12/21/2012 Medical O [facility] 04/23/2013 Medical O [facility] 04/23/2013 34203 A1C (IN-HOUSE) 12/04/2013 90700 A1C (IN-HOUSE) 04/16/2014 Results Test Result Range Methicillin resistant Staphylococcus aureus (MRSA) screening culture - 03/02/17 10:20 Methicillin resistant Staphylococcus aureus (MRSA) screening culture NEG NRG Encounters ACCT No. Visit Date/Time Discharge Status Pt. Type Provider Facility Loc./Unit Complaint [id number] 04/16/2014 15:53:00 04/16/2014 23:59:59 CLS Outpatient HUERTER MD, GABRIELA [id number] 01/19/2014 15:48:00 01/19/2014 23:59:59 CLS Outpatient GABRIELA SCOTT MD [id number] 12/04/2013 14:38:00 12/04/2013 23:59:59 CLS Outpatient GABRIELA SCOTT MD [id number] 12/04/2013 14:38:00 12/04/2013 23:59:59 CLS Outpatient GABRIELA SCOTT MD [id number] 05/05/2013 12:12:00 05/05/2013 23:59:59 CLS Outpatient COURTNEY MAYER MD [id number] 03/12/2013 11:04:00 03/12/2013 23:59:59 CLS Outpatient COURTNEY MAYER MD [id number] 08/26/2012 13:38:00 08/26/2012 23:59:59 CLS Outpatient [id number] 08/16/2012 14:20:00 08/16/2012 23:59:59 CLS Outpatient GABRIELA SCOTT MD [id number] 07/26/2012 13:34:00 07/26/2012 23:59:59 CLS Outpatient ASHLEY MOLINA DO Nav [id number] 07/15/2012 14:26:00 07/15/2012 23:59:59 CLS Outpatient GABRIELA SCOTT MD [id number] 06/28/2012 12:35:00 06/28/2012 23:59:59 CLS Outpatient [id number] 06/27/2012 14:44:00 06/27/2012 23:59:59 CLS Outpatient [id number] 03/10/2013 16:18:00 Document Registration [id number] 02/10/2013 06:53:00 Document Registration [id number] 01/15/2019 10:40:00 01/15/2019 11:21:00 DIS Outpatient PEDRO BRAUN DO Via [facility] PREOP COLONOSCOPY [id number] 12/12/2018 00:11:00 12/12/2018 23:59:59 CLS Preadmit ADRIEN HILL Via [facility] ONC [id number] 09/12/2018 12:40:00 12/11/2018 00:01:00 DIS Outpatient ADRIEN HILL Via [facility] ONC [id number] 02/07/2018 12:50:00 02/22/2018 00:01:00 DIS Outpatient ADRIEN HILL N [facility] ONC [id number] 08/02/2017 12:58:00 10/31/2017 00:01:00 DIS Outpatient ADRIEN HILL Via [facility] ONC [id number] 08/28/2017 09:03:00 08/28/2017 23:59:59 CLS Outpatient TABATHA AGUILA RN CIRCULATING Via [facility] RAD C20 MALIGNANT TUMOR OF RECTUM [id number] 08/20/2017 13:31:00 08/20/2017 23:59:59 CLS Outpatient TABATHA AGUILA RN CIRCULATING Via [facility] RAD C20 TUMOR OF RECTUM [id number] 08/02/2017 13:56:00 08/02/2017 23:59:59 CLS Outpatient TABATHA AGUILAP [facility] RAD [id number] 03/02/2017 09:56:00 03/02/2017 23:59:59 CLS Out[facility] [id number] 02/28/2017 05:33:00 02/28/2017 10:45:00 DIS Outpatient COURTNEY MAYER MD [facility] PREOP PORT REMOVAL [id number] 02/01/2017 14:24:00 02/07/2017 00:01:00 DIS Outpatient ADRIEN HILL Via [facility] ONC [id number] 09/28/2016 14:24:00 10/04/2016 00:01:00 DIS Outpatient ADRIEN HILL [facility] ONC [id number] 08/21/2016 14:42:00 08/21/2016 23:59:59 CLS Outpatient TABATHA AGUILA RN CIRCULATING Via [facility] RAD SCREENING [id number] 05/22/2016 13:58:00 07/05/2016 00:01:00 DIS Outpatient ADRIEN HILL Via [facility] ONC [id number] 01/06/2016 12:53:00 02/16/2016 00:01:00 DIS Outpatient ADRIEN HILL [facility] ONC [id number] 01/31/2016 08:03:00 01/31/2016 11:10:00 DIS Outpatient COURTNEY MAYER MD Via [facility] HX DISTAL RECTAL CA [id number] 01/27/2016 05:50:00 01/27/2016 15:46:00 DIS Outpatient COURTNEY MAYER MD Via [facility] PREOP HX DISTAL RECTAL CA [id number] 10/07/2015 13:14:00 11/01/2015 00:01:00 DIS Outpatient ADRIEN HILL Via [facility] ONC [id number] 10/07/2015 13:12:00 10/07/2015 23:59:59 CLS Outpatient TABATHA AGUILA RN CIRCULATING Via [facility] ONC [id number] 08/11/2015 15:21:00 08/11/2015 23:59:59 CLS Outpatient TABATHA AGUILA RN CIRCULATING Via [facility] RAD SCREENING [id number] 07/14/2015 14:44:00 07/20/2015 00:01:00 DIS Outpatient ADRIEN HILL Via [facility] ONC [id number] 07/14/2015 12:44:00 07/14/2015 23:59:59 CLS Outpatient TABATHA AGUILA RN CIRCULATING Via [facility] ONC [id number] 03/08/2015 12:41:00 03/14/2015 00:01:00 DIS Outpatient ADRIEN HILL Via [facility] ONC [id number] 01/25/2015 09:40:00 01/25/2015 23:59:59 CLS Outpatient TABATHA AGUILA RN CIRCULATING Via [facility] ONC [id number] 12/07/2014 09:26:00 12/07/2014 11:25:00 DIS Outpatient COURTNEY MAYER MD Via [facility] HISTORY OF COLON CANCER [id number] 12/03/2014 06:11:00 12/03/2014 23:59:59 CLS Outpatient COURTNEY MAYER MD Via [facility] PREOP HISTORY OF COLON CANCER [id number] 11/02/2014 09:05:00 12/02/2014 00:01:00 DIS Outpatient ADRIEN HILL Via [facility] ONC [id number] 07/28/2014 14:43:00 07/28/2014 23:59:59 CLS Outpatient TABATHA AGUILA S RN CIRCULATING Via [facility] RAD SCREENING [id number] 07/20/2014 14:38:00 07/26/2014 00:01:00 DIS Outpatient ADRIEN HILL [place] Via [facility] ONC [id number] 07/20/2014 12:56:00 07/20/2014 23:59:59 CLS Outpatient TABATHA AGUILA S RN CIRCULATING Via [facility] ONC [id number] 03/12/2014 13:35:00 04/07/2014 00:01:00 DIS Outpatient ADRIEN HILL [place] Via [facility] ONC [id number] 01/29/2014 14:05:00 01/29/2014 23:59:59 CLS Outpatient TABATHA AGUILA S RN CIRCULATING Via [facility] ONC [id number] 12/16/2013 13:20:00 12/24/2013 00:01:00 DIS Outpatient ADRIEN HILL [place] Via [facility] ONC [id number] 12/16/2013 13:22:00 12/16/2013 23:59:59 CLS Outpatient ADRIEN HILL [place] Via [facility] RAD [id number] 11/05/2013 13:28:00 11/05/2013 23:59:59 CLS Outpatient TABATHA AGUILA S RN CIRCULATING Via [facility] ONC [id number] 10/20/2013 07:14:00 10/20/2013 23:59:59 CLS Outpatient COURTNEY MAYER MD Via [facility] SDC HISTORY COLON CANCER [id number] 10/15/2013 07:30:00 10/15/2013 23:59:59 CLS Outpatient COURTNEY MAYER MD Via [facility] PREOP HISTORY COLON CANCER [id number] 08/14/2013 13:08:00 09/09/2013 00:01:00 DIS Outpatient FLORYADRIEN [place] Via [facility] ONC [id number] 08/07/2013 09:47:00 08/07/2013 23:59:59 CLS Outpatient DINO HILLRADHA [place] Via [facility] RECTAL CA [id number] 06/26/2013 10:46:00 06/26/2013 23:59:59 CLS Outpatient TABATHA AGUILA RN CIRCULATING Via [facility] ONC [id number] 06/05/2013 13:19:00 06/08/2013 00:01:00 DIS Outpatient ADRIEN HILL Via [facility] ONC [id number] 05/14/2013 10:33:00 05/14/2013 23:59:59 CLS Outpatient TABATHA AGUILA RN CIRCULATING Via [facility] ONC [id number] 04/09/2013 13:45:00 04/09/2013 23:59:59 CLS Outpatient ADRIEN HILL Via [facility] HH RECTAL CANCER, CHEMOTHERAPY [id number] 03/07/2013 10:00:00 04/04/2013 12:37:00 DIS Outpatient TABATHA AGUILA RN CIRCULATING Via [facility] WOUNDCARE OPEN RAW AREA [id number] 04/01/2013 12:44:00 04/01/2013 23:59:59 CLS Outpatient TABATHA AGUILA RN CIRCULATING Via [facility] ONC [id number] 03/26/2013 16:00:00 03/26/2013 23:59:59 CLS Outpatient ADRIEN HILL Via [facility] RECTAL CA, CHEMO TREATMENT [id number] 03/19/2013 09:25:00 03/19/2013 23:59:59 CLS Outpatient ADRIEN HILL Via [facility] RECTAL CA,CHEMO THERAPY TREATMENTS [id number] 03/18/2013 09:13:00 03/18/2013 13:10:00 DIS Outpatient COURTNEY MAYER MD Via [facility] SDC RECTAL CARCINOMA [id number] 03/13/2013 09:57:00 03/13/2013 23:59:59 CLS Outpatient COURTNEY MAYER MD Via [facility] PREOP RECTAL CARCINOMA [id number] 03/04/2013 12:40:00 03/04/2013 00:01:00 DIS Outpatient ADRIEN HILL Via [facility] ONC [id number] 02/26/2013 14:15:00 02/26/2013 23:59:59 CLS Outpatient ADRIEN HILL Via [facility] HH RECTAL CANCER [id number] 02/11/2013 10:45:00 02/11/2013 23:59:59 CLS Outpatient TABATHA AGUILA RN CIRCULATING Via [facility] ONC [id number] 02/05/2013 08:32:00 02/05/2013 13:15:00 DIS Outpatient COURTNEY MAYER MD Via [facility] DISTAL RECTAL CARCINOMA [id number] 02/03/2013 10:04:00 02/03/2013 23:59:59 CLS Outpatient COURTNEY MAYER MD Via [facility] PREOP DISTAL RECTAL CARCINOMA [id number] 12/25/2012 13:42:00 12/30/2012 14:10:00 DIS Inpatient COURTNEY MAYER MD Via [facility] SURGICAL SWB ADB PERINEAL RESECTION/COLOSTOMY,CENTRL LINE [id number] 12/18/2012 07:00:00 12/25/2012 13:41:00 DIS Inpatient COURTNEY MAYER MD Via [facility] SURGICAL RECTAL CANCER [id number] 12/12/2012 09:45:00 12/12/2012 23:59:59 CLS Outpatient COURTNEY MAYER MD Via [facility] PREOP RECTAL CANCER [id number] 12/10/2012 06:34:00 12/10/2012 23:59:59 CLS Outpatient [facility] [id number] 12/04/2012 07:19:00 12/04/2012 23:59:59 CLS Outpatient COURTNEY MAYER MD Via [facility] PREOP RECTAL CANCER [id number] 11/27/2012 13:05:00 11/27/2012 23:59:59 CLS Outpatient TABATHA AGUILA RN CIRCULATING Via [facility] ONC [id number] 10/31/2012 10:38:00 11/27/2012 00:01:00 DIS Outpatient ADRIEN HILL Via [facility] ONC [id number] 11/07/2012 14:34:00 11/07/2012 23:59:59 CLS Outpatient TABATHA AGUILA RN CIRCULATING Via [facility] ONC [id number] 01/21/2019 12:40:00 PEN Preadmit PEDRO BRAUN DO Via [facility] ENDO SCREENING [id number] 07/31/2014 09:25:00 Document Registration [id number] 07/31/2014 09:25:00 Document Registration [id number] 07/31/2014 09:25:00 Document Registration [id number] 07/31/2014 09:25:00 Document Registration [id number] 11/28/2012 00:00:00 Document Registration [id number] 09/24/2012 10:00:00 Document Registration [id number] 08/27/2012 11:00:00 Document Registration [id number] 08/21/2012 08:05:00 Document Registration [id number] 08/19/2012 06:39:00 Document Registration [id number] 08/15/2012 07:41:00 Document Registration [id number] 08/02/2012 13:49:00 Document Registration [id number] 06/03/2009 14:20:00 Document Registration
[2019-01-21] MEDS ORDERED: LACTATED RINGERS 1,000 ML IV ONE (11:48)
[2019-01-21] MEDS ORDERED: LACTATED RINGERS 1,000 ML IV PRN (12:45)
[2019-01-21] MEDS ORDERED: PROPOFOL INJECTION 50 ML IV ONE (12:55)
--- NOTE | 2019-01-21 13:15 | Progress Note-Pre Operative ---
Pre-Operative Progress Note H&P Reviewed The H&P was reviewed, patient examined and no changes noted. Date Seen by Provider: Jan 21, 2019 Time Seen by Provider: 13:14 Date H&P Reviewed: Jan 21, 2019 Time H&P Reviewed: 13:14 Pre-Operative Diagnosis: hx rectal ca PEDRO BRAUN DO Jan 21, 2019 13:15
--- NOTE | 2019-01-21 14:03 | Progress Note-Post Operative ---
Post-Operative Progess Note Surgeon (s)/Rn Immunology (s) Surgeon PEDRO BRAUN DO Rn Immunology: na Pre-Operative Diagnosis hx rectal ca Post-Operative Diagnosis cecal polyps, transverse colon polyps Procedure & Operative Findings Date of Procedure 01/21/19 Procedure Performed/Findings colonoscopy with snare polypectomy cecal polyp, fulguration cecal polyp, and hot bx polypectomy transverse colon Anesthesia Type per tobacco stemmer Estimated Blood Loss Estimated blood loss (mL): none Specimens/Packing Specimens Removed cecal polyp and transverse colon polyp PEDRO BRAUN DO Jan 21, 2019 14:03
--- NOTE | 2019-01-21 14:04 | Discharge Inst-Simple/Standard ---
Discharge Inst-Standard Patient Instructions/Follow Up Plan of Care/Instructions/FU: 2 weeks Ondina Activity as Tolerated: Yes Discharge Diet: Regular Diet PEDRO BRAUN DO Jan 21, 2019 14:04
--- NOTE | 2019-01-21 14:12 | Anesthesia-General Post-Op ---
MAC Patient Condition Mental Status/LOC: Same as Preop Cardiovascular: Satisfactory Nausea/Vomiting: Absent Respiratory: Satisfactory Pain: Controlled Complications: Absent Post Op Complications Complications None Follow Up Care/Instructions Patient Instructions None needed. Anesthesiology Discharge Order Discharge Order Patient is doing well, no complaints, stable vital signs, no apparent adverse anesthesia problems. WHITNEY MATIAS DO Jan 21, 2019 14:12
--- NOTE | 2019-01-21 20:44 | OPERATIVE REPORT ---
DATE OF SERVICE: 01/21/2019 PREOPERATIVE DIAGNOSIS: History of rectal cancer. POSTOPERATIVE DIAGNOSES: Cecal polyp, transverse colon polyp. PROCEDURE: Colonoscopy with snare polypectomy of cecal polyp, fulguration of cecal polyp and hot biopsy polypectomy transverse colon. SURGEON: Pedro Nj DO ANESTHESIA: Per PROPERTY MANAGEMENT ASSISTANT. ESTIMATED BLOOD LOSS: None. COMPLICATIONS: None. INDICATIONS: The patient is a 73-year-old female with history of rectal cancer. She understands risks and benefits of procedure and wished to proceed with procedure. Consent was signed in the chart. DESCRIPTION OF PROCEDURE: The patient was taken to the endoscopy suite, placed in the supine position. The timeout was performed. The anal scar was inspected. No evidence of any recurrence. A digital exam was performed through the ostomy, which demonstrating no abnormality. This also dilated the opening to the colostomy. The scope was inserted through the colostomy and advanced all the way to the cecum with minimal difficulty. In the cecum, a larger, slightly flat polyp was present and also a small polyp right next to it near the appendiceal orifice was present. The small polyp was fulgurated. Snare polypectomy was performed on the larger polyp. This was able to be suctioned. Prep was adequate with irrigation and suction. Scope was then slowly retracted back. There were no other polyps, masses or ulcerations within the cecum, ascending colon. In the transverse colon, a small polyp was present, which hot biopsy polypectomy was performed. Scope was then continuously retracted back through the remainder of the transverse and descending colon through the sigmoid colon through the colostomy noting no other pathology. The patient tolerated procedure well without any complications. She was taken to recovery room in stable condition. RECOMMENDATIONS: The patient will recommend repeat colonoscopy in one year due to the size of the polyp in the cecum. If she has any issues before that, will be seen at that time. The patient will follow up in 2 weeks to discuss pathology results. Job ID: [id number] DocumentID: [id number] Dictated Date: 01/21/2019 14:07:35 Paper Cutter Operator Date: 01/21/2019 20:43:08 Dictated By: PEDRO JN DO
== END 2019-01-21 14:50 | disposition home or self-care (01) ==
LOC: ENDO 09:43
PROVIDERS: ATTEND Surgery
DX: Z12.11 Encounter for screening for malignant neoplasm of colon (principal); D12.0 Benign neoplasm of cecum; D12.3 Benign neoplasm of transverse colon; F41.9 Anxiety disorder, unspecified; E11.9 Type 2 diabetes mellitus without complications; F17.210 Nicotine dependence, cigarettes, uncomplicated; F32.9 Major depressive disorder, single episode, unspecified; Z88.0 Allergy status to penicillin; Z88.6 Allergy status to analgesic agent; Z85.048 Personal history of other malignant neoplasm of rectum, rectosigmoid junction, and anus; Z98.51 Tubal ligation status

== ENCOUNTER → 2019-10-24 | Outpatient (CLI) | payer MEDICARE, OTHER ==
[~2019-10-24] MED LIST changes: +ACHYD1T PO; -HYDR-3820 PO
[2019-10-24 13:09] LABS: BASOPHILS % (AUTO) 0 % (0-10); EOSINOPHILS # (AUTO) 0.1 10^3/uL (0.0-0.3); EOSINOPHILS % (AUTO) 1 % (0-10); HEMATOCRIT 47 % (35-52); HEMOGLOBIN 16.2 G/DL (11.5-16.0); LYMPHOCYTES # (AUTO) 1.6 X 10^3 (1.0-4.0); LYMPHOCYTES % (AUTO) 20 % (12-44); MEAN CORPUSCULAR HEMOGLOBIN 32 PG (25-34); MEAN CORPUSCULAR HGB CONC 34 G/DL (32-36); MEAN CORPUSCULAR VOLUME 92 FL (80-99); MEAN PLATELET VOLUME 9.6 FL (7.4-10.4); MONOCYTES # (AUTO) 0.7 X 10^3 (0.0-1.0); MONOCYTES % (AUTO) 9 % (0-12); NEUTROPHILS # (AUTO) 5.7 X 10^3 (1.8-7.8); NEUTROPHILS % (AUTO) 69 % (42-75); PLATELET COUNT 245 10^3/uL (130-400); RED CELL DISTRIBUTION WIDTH 13.2 % (10.0-14.5); WHITE BLOOD COUNT 8.2 10^3/uL (4.3-11.0)
[2019-10-24 13:31] LABS: ALANINE AMINOTRANSFERASE 49 U/L (0-55); ALBUMIN 4.6 GM/DL (3.2-4.5); ALKALINE PHOSPHATASE 85 U/L (40-136); BILIRUBIN,TOTAL 0.6 MG/DL (0.1-1.0); BUN/CREATININE RATIO 9; CARBON DIOXIDE 26 MMOL/L (21-32); CHLORIDE 104 MMOL/L (98-107); CREATININE SERUM 0.93 MG/DL (0.60-1.30); GFR ESTIMATED 59; GLUCOSE 194 MG/DL (70-105); POTASSIUM 3.9 MMOL/L (3.6-5.0); SODIUM 141 MMOL/L (135-145); TOTAL PROTEIN 7.7 GM/DL (6.4-8.2)
== END ==
LOC: EDSTATUS 12-12 14:40 → ONC 12:52
PROVIDERS: ATTEND Internal Medicine Hematology & Oncology
DX: Z08 Encounter for follow-up examination after completed treatment for malignant neoplasm (principal); Z85.048 Personal history of other malignant neoplasm of rectum, rectosigmoid junction, and anus; Z93.3 Colostomy status; Z92.21 Personal history of antineoplastic chemotherapy; R97.0 Elevated carcinoembryonic antigen [CEA]; F41.9 Anxiety disorder, unspecified; F17.210 Nicotine dependence, cigarettes, uncomplicated; R06.09 Other forms of dyspnea; M54.5 Low back pain; R10.2 Pelvic and perineal pain; G89.29 Other chronic pain
CPT/HCPCS: 80053; 82378; 85025; 99213

== ENCOUNTER → 2019-11-04 | Outpatient (CLI) | payer MEDICARE, OTHER ==
[~2019-11-04] MED LIST changes: +BARIUM SUSPENSION 2.1% (VANILLA SILQ) 450 ML PO ONE; +CATHETER FLUSH 10 ML SYR IV PRN; +HOLD METFORMIN - RECEIVED CONTRAST 20 ML VIAL IV SCH; +IOHEXOL 350 MG/ML 100 ML (OMNIPAQUE 350) VIAL IV ONE; +NS 100 ML (IVPB) BAG IV ONE
--- NOTE | 2019-11-04 10:10 | Diagnostic Imaging Report ---
PROCEDURE: CT chest with contrast, CT abdomen and pelvis with and without contrast. TECHNIQUE: Pre and post intravenous contrast axial imaging of the abdomen and pelvis and post contrast axial imaging of the chest were performed. Auto Exposure Controls were utilized during the CT exam to meet ALARA standards for radiation dose reduction. INDICATION: Rectal cancer, left lower quadrant pain. COMPARISON: CT chest, abdomen, and pelvis of 08/20/2017 as well as correlated with metabolic PET CT of 08/28/2017. FINDINGS: CHEST: No pathological thoracic lymph nodes. No pulmonary nodule. No focal consolidation. No chest effusion. No suspicious chest wall pathology. ABDOMEN/PELVIS: No abdominal/pelvic mesenteric or retroperitoneal lymphadenopathy. The liver is unremarkable. The spleen, adrenals, and pancreas are negative. The kidneys are unobstructed. There is distal large bowel resection and a diverting colostomy in the left lower quadrant. Non-metabolically active tissue pre-coccygeal is unchanged anatomically from the prior CT and PET negative in the interim. This is presumed post-therapeutic. No suspicious bony lesion. IMPRESSION: Stable exam showing no findings suggestive of metastatic disease or neoplastic recurrence. Dictated by: Dictated on workstation # [id number]
== END ==
LOC: RAD 09:24
PROVIDERS: ATTEND Nurse Practitioner Adult Health
DX: C20 Malignant neoplasm of rectum (principal); R97.0 Elevated carcinoembryonic antigen [CEA]
CPT/HCPCS: 71260; 74178

== ENCOUNTER 2020-03-18 11:30 | Outpatient (CLI) | payer MEDICARE, OTHER ==
[~2020-03-18] VITALS: Ht 177.8 cm; Wt 65.0 kg
[~2020-03-18 11:30] MED LIST changes: -BARIUM SUSPENSION 2.1% (VANILLA SILQ) 450 ML PO ONE; -CATHETER FLUSH 10 ML SYR IV PRN; -HOLD METFORMIN - RECEIVED CONTRAST 20 ML VIAL IV SCH; -IOHEXOL 350 MG/ML 100 ML (OMNIPAQUE 350) VIAL IV ONE; -NS 100 ML (IVPB) BAG IV ONE
== END 2020-03-18 11:53 ==
LOC: PREOP 11:30
PROVIDERS: ATTEND Surgery
DX: Z01.818 Encounter for other preprocedural examination (principal)

== ENCOUNTER 2020-03-23 07:35 | Day surgery (SDC) | payer MEDICARE, OTHER ==
[~2020-03-23] VITALS: Ht 177.8 cm; Wt 65.0 kg
[2020-03-23] MEDS ORDERED: LACTATED RINGERS 1,000 ML IV ONE (07:39)
[2020-03-23] MEDS ORDERED: LACTATED RINGERS 1,000 ML IV STA (07:43)
[2020-03-23] MEDS ORDERED: proPOfol 200 MG/20 ML (DIPRIVAN) VIAL IV ONE (07:52)
[2020-03-23 07:56] VITALS: BP 159/92
[2020-03-23 09:35] VITALS: BP 158/69
[2020-03-23 09:40] VITALS: BP 136/63
--- NOTE | 2020-03-23 09:40 | Discharge Inst-Simple/Standard ---
Discharge Inst-Standard Patient Instructions/Follow Up Plan of Care/Instructions/FU: 2 weeks Ondina Activity as Tolerated: Yes Discharge Diet: Regular Diet PEDRO BRAUN DO Mar 23, 2020 09:40
--- NOTE | 2020-03-23 09:42 | Progress Note-Post Operative ---
Post-Operative Progess Note Surgeon (s)/Acoustical Material Worker (s) Surgeon PEDRO BRAUN DO Acoustical Material Worker: na Pre-Operative Diagnosis hx rectal ca Post-Operative Diagnosis colon polyp Procedure & Operative Findings Date of Procedure 03/23/20 Procedure Performed/Findings colonoscopy c hot bx polypectomy Anesthesia Type per mda Estimated Blood Loss Estimated blood loss (mL): none Specimens/Packing Specimens Removed colon polyp PEDRO BRAUN DO Mar 23, 2020 09:42
[2020-03-23 09:45] VITALS: BP 136/64
--- NOTE | 2020-03-23 10:04 | OPERATIVE REPORT ---
DATE OF SERVICE: 03/23/2020 PREOPERATIVE DIAGNOSIS: History of rectal cancer. POSTOPERATIVE DIAGNOSIS: Colon polyp. PROCEDURES PERFORMED: Colonoscopy with hot biopsy polypectomy. SURGEON: Pedro Nj DO. ANESTHESIA: Per MDA. ESTIMATED BLOOD LOSS: None. COMPLICATIONS: None. INDICATIONS FOR PROCEDURE: The patient is a 74-year-old female with history of rectal cancer and history of polyps. She understands the risks and benefits of the procedure and wished to proceed with the procedure. Consent was signed in the chart. DESCRIPTION OF PROCEDURE: The patient was taken to endoscopy suite and placed in the frogleg position. The APR scar and perineum all appeared normal without any abnormality. Legs were then laid down flat. The colostomy was pink, slightly narrowed opening, scope was unable to be inserted, so a gastroscope was used and inserted and advanced all the way to the cecum without any difficulty. The prep was adequate with irrigation and suction. There were no polyps, masses or ulcerations within the cecum and ascending colon. In the transverse colon, a small polyp was present, which hot biopsy polypectomy was performed. Scope was then continued to be slowly retracted back. No other polyps, masses or ulcerations were visualized within the transverse, descending and sigmoid colon. Scope was slowly retracted until completely removed. The patient tolerated the procedure well without any complications. She was taken to the recovery room in a stable condition. RECOMMENDATIONS: The patient will have a repeat colonoscopy in five years. Any issues before that will be seen at that time. The patient will follow up in two weeks to discuss pathology results. Job ID: [id number] DocumentID: [id number] Dictated Date: 03/23/2020 09:45:42 Launderer Hand Date: 03/23/2020 10:03:43 Dictated By: PEDRO NJ DO [facility]
[2020-03-23 10:10] VITALS: BP 169/73
[2020-03-23 10:25] VITALS: BP 169/73
--- NOTE | 2020-03-23 13:16 | Anesthesia-General Post-Op ---
MAC Patient Condition Mental Status/LOC: Same as Preop Cardiovascular: Satisfactory Nausea/Vomiting: Absent Respiratory: Satisfactory Pain: Controlled Complications: Absent Post Op Complications Complications None Follow Up Care/Instructions Patient Instructions None needed. Anesthesiology Discharge Order Discharge Order Patient was seen this morning after the procedure and she was doing well, no complaints, stable vital signs, no apparent adverse anesthesia problems. WHITNEY MATIAS DO Mar 23, 2020 13:16
== END 2020-03-23 10:25 | disposition home or self-care (01) ==
LOC: ENDO 07:35
PROVIDERS: ATTEND Surgery
DX: D12.3 Benign neoplasm of transverse colon (principal); F17.210 Nicotine dependence, cigarettes, uncomplicated; M06.9 Rheumatoid arthritis, unspecified; F32.9 Major depressive disorder, single episode, unspecified; Z86.010 Personal history of colon polyps; Z88.0 Allergy status to penicillin; Z88.8 Allergy status to other drugs, medicaments and biological substances
CPT/HCPCS: 88305

== ENCOUNTER → 2020-10-28 | Outpatient (CLI) | payer MEDICARE, OTHER ==
[~2020-10-28] MED LIST changes: -DOCU-238 PO; +DOCU-241 PO
[2020-10-28 13:11] LABS: BASOPHILS # (AUTO) 0.1 10^3/uL (0.0-0.1); BASOPHILS % (AUTO) 1 % (0-10); EOSINOPHILS % (AUTO) 1 % (0-10); HEMATOCRIT 47 % (35-52); HEMOGLOBIN 15.8 g/dL (11.5-16.0); LYMPHOCYTES # (AUTO) 1.4 10^3/uL (1.0-4.0); LYMPHOCYTES % (AUTO) 17 % (12-44); MEAN CORPUSCULAR HEMOGLOBIN 32 pg (25-34); MEAN CORPUSCULAR HGB CONC 34 g/dL (32-36); MEAN CORPUSCULAR VOLUME 95 fL (80-99); MEAN PLATELET VOLUME 9.8 fL (9.0-12.2); MONOCYTES # (AUTO) 0.6 10^3/uL (0.0-1.0); MONOCYTES % (AUTO) 8 % (0-12); NEUTROPHILS # (AUTO) 5.8 10^3/uL (1.8-7.8); NEUTROPHILS % (AUTO) 73 % (42-75); PLATELET COUNT 239 10^3/uL (130-400)
[2020-10-28 13:38] LABS: ALBUMIN 4.3 GM/DL (3.2-4.5); BILIRUBIN,TOTAL 0.5 MG/DL (0.1-1.0); CALCIUM 9.8 MG/DL (8.5-10.1); CREATININE SERUM 1.05 MG/DL (0.60-1.30); POTASSIUM 4.1 MMOL/L (3.6-5.0); TOTAL PROTEIN 7.1 GM/DL (6.4-8.2)
== END ==
LOC: ONC 12:50
PROVIDERS: ATTEND Internal Medicine Hematology & Oncology
DX: C20 Malignant neoplasm of rectum (principal); F41.9 Anxiety disorder, unspecified; E11.9 Type 2 diabetes mellitus without complications; Z92.21 Personal history of antineoplastic chemotherapy; Z98.890 Other specified postprocedural states; Z72.0 Tobacco use; Z79.891 Long term (current) use of opiate analgesic; Z79.899 Other long term (current) drug therapy
CPT/HCPCS: 80053; 82378; 85025; G0463; 99213

== ENCOUNTER 2023-04-14 15:26 | Emergency (ER) | payer MEDICARE, OTHER ==
[~2023-04-14] VITALS: Ht 167.7 cm; Wt 64.5 kg
[~2023-04-14 15:26] MED LIST changes: -DOCU-241 PO; +DOCU-26 PO
[2023-04-14 16:13] LABS: BASOPHILS # (AUTO) 0.1 10^3/uL (0.0-0.1); BASOPHILS % (AUTO) 1 % (0-10); EOSINOPHILS % (AUTO) 0 % (0-10); HEMATOCRIT 47 % (35-52); LYMPHOCYTES # (AUTO) 1.6 X 10^3 (1.0-4.0); LYMPHOCYTES % (AUTO) 12 % (12-44); MEAN CORPUSCULAR HEMOGLOBIN 32 pg (25-34); MEAN CORPUSCULAR HGB CONC 34 g/dL (32-36); MEAN CORPUSCULAR VOLUME 94 fL (80-99); MEAN PLATELET VOLUME 9.9 fL (9.0-12.2); MONOCYTES # (AUTO) 0.8 X 10^3 (0.0-1.0); MONOCYTES % (AUTO) 6 % (0-12); NEUTROPHILS # (AUTO) 10.3 X 10^3 (1.8-7.8); NEUTROPHILS % (AUTO) 80 % (42-75); PLATELET COUNT 272 10^3/uL (130-400); WHITE BLOOD COUNT 12.8 10^3/uL (4.3-11.0)
[2023-04-14 16:24] LABS: ALBUMIN 4.4 GM/DL (3.2-4.5)
[2023-04-14 16:25] LABS: POTASSIUM 4.4 MMOL/L (3.6-5.0)
--- NOTE | 2023-04-14 16:25 | ED Syncope ---
General Chief Complaint: Dizziness/Syncope Stated Complaint: DIZZY/LIGHT HEADED/DISORIENTED Nursing Triage Note: pt to ed with c/o dizziness and warmth feeling that started about 2 hours ago. also c/o right ear pain and sinus drainage Source of Information: Patient Exam Limitations: No Limitations History of Present Illness Date Seen by Provider: Apr 14, 2023 Time Seen by Provider: 16:03 Allergies and Home Medications Allergies Coded Allergies: Penicillins (Verified Allergy, Mild, HIVES/GI UPSET, 01/15/19) aspirin (Verified Allergy, Mild, HIVES/GI UPSET, 01/15/19) Patient Home Medication List Home Medication List Reviewed: Yes Cephalexin (Cephalexin) 500 Mg Tablet, 500 MG PO TID Prescribed by: SHAHZAD MILNER on 04/14/23 917 Multivitamin (Multi-Vitamin Daily) 1 Each Tablet, 1 EACH PO DAILY, (Reported) Entered as Reported by: TITA ALANIZ on 01/15/19 1034 Past Xjpwpvi-Gsmpal-Mnixlc Hx Patient Social History Tobacco Use?: Yes Tobacco type used: Cigarettes Smoking Status: Current Everyday Smoker Substance use?: No Alcohol Use?: No Pt feels they are or have been: No Immunizations Up To Date Tetanus Booster (TDap): Unknown PED Vaccines UTD: Yes Seasonal Allergies Seasonal Allergies: Yes Past Medical History Surgery/Hospitalization HX: colon ca with resection Surgeries: Yes (colostomy) Bowel Surgery, Tubal Ligation Respiratory: No Cardiac: No Neurological: No Reproductive Disorders: No Female Reproductive Disorders: Denies Sexually Transmitted Disease: No HIV/AIDS: No Genitourinary: No Gastrointestinal: Yes (COLOSTOMY DUE TO COLON CANCER) Musculoskeletal: Yes (LOWER BACK) Arthritis Endocrine: No Diabetes, Non-Insulin dep HEENT: Yes (READING GLASSES, DENTURES) Loss of Vision: Denies Hearing Impairment: Denies Cancer: Yes Rectal Did You Recieve Any Treatments: Yes What Type of Treatment Did You: Chemotherapy, Radiation, Surgical Intervention Psychosocial: Yes Depression Integumentary: No Blood Disorders: No Adverse Reaction/Blood Tranf: No (N/A) Physical Exam Vital Signs Vital Signs - First Documented 04/14/23 15:39 Temp 35.0 Pulse 61 Resp 16 B/P (MAP) 125/61 (82) Pulse Ox 98 Capillary Refill : Height, Weight, BMI Height: 5'6.00" Weight: 144lbs. 0.0oz. [id number]; 22.00 BMI Method: Progress/Results/Core Measures Results/Orders Lab Results Laboratory Tests Test 04/14/23 15:47 04/14/23 16:43 Range/Units White Blood Count 12.8 H 4.3-11.0 10^3/uL Red Blood Count 5.05 3.80-5.11 10^6/uL Hemoglobin 16.0 11.5-16.0 g/dL Hematocrit 47 35-52 % Mean Corpuscular Volume 94 80-99 fL Mean Corpuscular Hemoglobin 32 25-34 pg Mean Corpuscular Hemoglobin Concent 34 32-36 g/dL Red Cell Distribution Width 13.1 10.0-14.5 % Platelet Count 272 130-400 10^3/uL Mean Platelet Volume 9.9 9.0-12.2 fL Immature Granulocyte % (Auto) 0 % Neutrophils (%) (Auto) 80 H 42-75 % Lymphocytes (%) (Auto) 12 12-44 % Monocytes (%) (Auto) 6 0-12 % Eosinophils (%) (Auto) 0 0-10 % Basophils (%) (Auto) 1 0-10 % Neutrophils # (Auto) 10.3 H 1.8-7.8 X 10^3 Lymphocytes # (Auto) 1.6 1.0-4.0 X 10^3 Monocytes # (Auto) 0.8 0.0-1.0 X 10^3 Eosinophils # (Auto) 0.0 0.0-0.3 10^3/uL Basophils # (Auto) 0.1 0.0-0.1 10^3/uL Immature Granulocyte # (Auto) 0.0 0.0-0.1 10^3/uL Sodium Level 139 135-145 MMOL/L Potassium Level 4.4 3.6-5.0 MMOL/L Chloride Level 103 98-107 MMOL/L Carbon Dioxide Level 20 L 21-32 MMOL/L Anion Gap 16 H 5-14 MMOL/L Blood Urea Nitrogen 12 7-18 MG/DL Creatinine 1.24 0.60-1.30 MG/DL Estimat Glomerular Filtration Rate 45 BUN/Creatinine Ratio 10 Glucose Level 246 H 70-105 MG/DL Calcium Level 10.7 H 8.5-10.1 MG/DL Corrected Calcium 10.4 H 8.5-10.1 MG/DL Magnesium Level 2.2 1.6-2.4 MG/DL Total Bilirubin 1.0 0.1-1.0 MG/DL Aspartate Amino Transf (AST/SGOT) 27 5-34 U/L Alanine Aminotransferase (ALT/SGPT) 26 0-55 U/L Alkaline Phosphatase 74 40-136 U/L Total Protein 7.4 6.4-8.2 GM/DL Albumin 4.4 3.2-4.5 GM/DL Urine Color YELLOW Urine Clarity CLEAR Urine pH 5.5 5-9 Urine Specific [place] 1.020 1.016-1.022 Urine Protein 2+ H NEGATIVE Urine Glucose (UA) NEGATIVE NEGATIVE Urine Ketones 1+ H NEGATIVE Urine Nitrite NEGATIVE NEGATIVE Urine Bilirubin NEGATIVE NEGATIVE Urine Urobilinogen 0.2 < = 1.0 MG/DL Urine Leukocyte Esterase TRACE H NEGATIVE Urine RBC (Auto) TRACE H NEGATIVE Urine RBC 0-2 /HPF Urine WBC 10-25 H /HPF Urine Squamous Epithelial Cells 10-25 H /HPF Urine Crystals NONE /LPF Urine Bacteria MODERATE H /HPF Urine Casts PRESENT /LPF Urine Hyaline Casts 10-25 H /LPF Urine Mucus NEGATIVE /LPF Urine Culture Indicated YES My Orders Orders - SHAHZAD DANIELS MD Ed Iv/Invasive Line Start (04/14/23 16:03) Cbc And Automated Diff (04/14/23 16:03) Comprehensive Metabolic Panel (04/14/23 16:03) Magnesium (04/14/23 16:03) Ua Culture If Indicated (04/14/23 16:03) Ekg Tracing (04/14/23 16:03) Monitor-Rhythm Ecg Trace Only (04/14/23 16:03) Orthostatic Vital Signs (Adult (04/14/23 16:30) Ns Iv 1000 Ml (Ns Iv 1000 Ml) (04/14/23 16:45) Urine Culture (04/14/23 16:43) Cephalexin Capsule (Cephalexin Capsule) (04/14/23 18:15) Medications Given in ED Current Medications Medications Dose Ordered Sig/Ashley Route Start Time Stop Time Status Last Admin Dose Admin Cephalexin HCl 500 mg ONCE ONCE PO 04/14/23 18:15 04/14/23 18:16 DC 04/14/23 18:16 500 MG Vital Signs/I&O 10/21/23 10/21/23 15:39 18:18 Temp 35.0 35.0 Pulse 61 65 Resp 16 16 B/P (MAP) 125/61 (82) 166/76 Pulse Ox 98 98 Blood Pressure Mean: 82 Initial ECG Impression Date: Apr 14, 2023 Initial ECG Impression Time: 16:18 Initial ECG Rate: 58 Initial ECG Rhythm: Normal Sinus Comment Normal sinus rhythm with no ST elevation or depression. No abnormal intervals or axis deviation. Heart rate was borderline bradycardic with rate of 58 bpm. Departure Impression Primary Impression: Near syncope Additional Impressions: Hyperglycemia Urinary tract infection Qualified Codes: N39.0 - Urinary tract infection, site not specified Renal insufficiency Disposition: HOME, SELF-CARE Condition: Improved Departure-Patient Inst. Decision time for Depature: 18:03 Referrals: GABRIELA SCOTT MD (PCP/Family) Primary Care Physician Patient Instructions: Urinary tract infections in adults Add. Discharge Instructions: Complete your antibiotic as prescribed. Follow-up with your primary care pr ovider on Sunday or Sunday by phone to review urine culture results. Also make a follow-up appointment to be seen in the clinic as soon as possible. Drink plenty of water to stay well-hydrated. Check your blood sugar fasting in the morning and approximately 2 hours after at least 1 meal daily. Record these blood sugars and present them to your primary care doctor in follow-up. Eat a low sugar low carbohydrate diet to help control your diabetes. Return to the emergency room if you have worsening symptoms despite following these instructions. All discharge instructions reviewed with patient and/or family. Voiced understanding. Scripts Cephalexin (Cephalexin) 500 Mg Tablet 500 MG PO TID, #20 TAB Prov: SHAHZAD DANIELS MD 04/14/23 Copy Copies To 1: [facility] [place] SHAHZAD DANIELS MD Apr 14, 2023 16:25
[2023-04-14 16:26] LABS: CALCIUM 10.7 MG/DL (8.5-10.1)
[2023-04-14 16:27] LABS: TOTAL PROTEIN 7.4 GM/DL (6.4-8.2)
[2023-04-14 16:31] LABS: CREATININE SERUM 1.24 MG/DL (0.60-1.30)
[2023-04-14 16:33] LABS: MAGNESIUM 2.2 MG/DL (1.6-2.4)
[2023-04-14] MEDS ORDERED: NS IV 1000 ML 1,000 ML IV SCH (16:45)
[2023-04-14 17:06] LABS: CLARITY,URINE CLEAR; COLOR,URINE YELLOW; GLUCOSE, URINE (UA) NEGATIVE (NEGATIVE); KETONES,URINE 1+ (NEGATIVE); NITRITE,URINE NEGATIVE (NEGATIVE); PH,URINE 5.5 (5-9); PROTEIN,URINE 2+ (NEGATIVE)
[2023-04-14 17:07] LABS: BACTERIA,URINE MODERATE /HPF; BILIRUBIN,URINE NEGATIVE (NEGATIVE); LEUKOCYTE ESTERASE ,URINE TRACE (NEGATIVE); RBC,URINE 0-2 /HPF
[2023-04-14] MEDS ORDERED: CEPH500T PO (18:07)
[2023-04-14] MEDS ORDERED: CEPHALEXIN 250 MG CAPSULE PO ONE (18:15)
[2023-04-14 18:18] VITALS: BP 166/76
== END 2023-04-14 18:21 | disposition home or self-care (01) ==
LOC: EDUNIT# 15:26 → ER 15:28
DX: E11.65 Type 2 diabetes mellitus with hyperglycemia (principal); N39.0 Urinary tract infection, site not specified; N28.9 Disorder of kidney and ureter, unspecified; R55 Syncope and collapse; F17.210 Nicotine dependence, cigarettes, uncomplicated; Z88.0 Allergy status to penicillin
CPT/HCPCS: 36415; 80053; 81000; 83735; 85025; 87088; 93005; 93041; 96360